=== PATIENT | male | born 1955 | race Caucasian/White ===

== ENCOUNTER → 2017-01-01 | Outpatient (CLI) | payer MEDICARE ==
[2017-01-01 07:41] LABS: ALT 58 U/L (21-72); AST 32 U/L (17-59); Alkaline Phosphatase 58 U/L (38-126); Anion Gap 12 mmol/L; Blood Urea Nitrogen 17 mg/dL (9-20); Carbon Dioxide 24 mmol/L (22-30); Chloride 106 mmol/L (98-107); Cholesterol 150 mg/dL (<200); Glucose 123 mg/dL (74-99); HDL Cholesterol 39 mg/dL (40-60); Non-African American GFR(MDRD) >60 (>60 ml/min/1.73 sqM); Potassium 4.3 mmol/L (3.5-5.1); Sodium 142 mmol/L (137-145); Total Bilirubin 0.9 mg/dL (0.2-1.3); Triglycerides 268 mg/dL (<150)
== END | disposition home or self-care (01) ==
LOC: LABWHC1 07:02
PROVIDERS: ATTEND Internal Medicine Interventional Cardiology
DX: E78.2 Mixed hyperlipidemia (principal)
CPT/HCPCS: 36415; 80053; 80061

== ENCOUNTER → 2017-05-18 | Outpatient (CLI) | payer MEDICARE ==
--- NOTE | 2017-05-18 15:35 | US ---
EXAMINATION TYPE: US pelvic complete DATE OF EXAM: 05/18/2017 COMPARISON: NONE CLINICAL HISTORY: R10.2 PELVIC AND PERINEAL PAIN. Intermittent pelvic pain Bladder: appears wnl, bladder jets not seen at this time, post void residual 95.8ml Right pelvis area of pain: appears wnl Left pelvis area of pain: appears wnl IMPRESSION: 1. Normal male pelvic ultrasound.
== END | disposition home or self-care (01) ==
LOC: RADUSWWP 14:22
PROVIDERS: ATTEND Family Medicine
DX: R10.2 Pelvic and perineal pain (principal)
CPT/HCPCS: 76857

== ENCOUNTER → 2017-06-30 | Outpatient (CLI) | payer MEDICARE ==
[2017-06-30 08:29] LABS: ALT 47 U/L (21-72); AST 28 U/L (17-59); Alkaline Phosphatase 56 U/L (38-126); Anion Gap 12 mmol/L; Blood Urea Nitrogen 15 mg/dL (9-20); Calcium 9.4 mg/dL (8.4-10.2); Carbon Dioxide 20 mmol/L (22-30); Chloride 109 mmol/L (98-107); Cholesterol 160 mg/dL (<200); Glucose 135 mg/dL (74-99); HDL Cholesterol 41 mg/dL (40-60); Non-African American GFR(MDRD) >60 (>60 ml/min/1.73 sqM); Potassium 4.4 mmol/L (3.5-5.1); Sodium 141 mmol/L (137-145); Total Bilirubin 0.7 mg/dL (0.2-1.3); Total Protein 7.1 g/dL (6.3-8.2)
== END | disposition home or self-care (01) ==
LOC: LABWHC1 07:49
PROVIDERS: ATTEND Internal Medicine Interventional Cardiology
DX: E78.2 Mixed hyperlipidemia (principal)
CPT/HCPCS: 36415; 80053; 80061

== ENCOUNTER → 2017-08-19 | Outpatient (CLI) | payer MEDICARE ==
--- NOTE | 2017-08-19 17:54 | US ---
EXAMINATION TYPE: US thyroid st tissue head/neck DATE OF EXAM: 08/19/2017 COMPARISON: 07/23/2016 CLINICAL HISTORY: E04.1 Thyroid nodule. GLAND SIZE: Right Lobe: 4.8 x 1.7 x 1.7 cm Overall Parenchyma: homogenous Left Lobe: 4.4 x 1.8 x 1.8 cm Overall Parenchyma: homogeneous Isthmus Thickness: 0.3 cm NODULES RIGHT: # of nodules measured on right: 0 LEFT: # of nodules measured on left: 1 1. 1.6 X 1.1 x 1.0 cm hypoechoic solid nodule at the mid pole with poorly defined margins; . This nodule is wider than tall and shows intranodular vascularity. Prior size: 1.5 x 1.2 x 1.1 cm ISTHMUS: # of nodules measured in the isthmus: 0 Bilateral neck scanned, no evidence of lymphadenopathy. IMPRESSION: There is a complex nodule in the left thyroid lobe that is unchanged compared to old exam. I have xena rly low suspicion of malignancy.
== END | disposition home or self-care (01) ==
LOC: RADUSWWP 16:54
PROVIDERS: ATTEND Internal Medicine Endocrinology, Diabetes & Metabolism
DX: E04.1 Nontoxic single thyroid nodule (principal)
CPT/HCPCS: 76536; 84439; 84443

== ENCOUNTER → 2017-10-14 | Outpatient (CLI) | payer MEDICARE ==
--- NOTE | 2017-10-14 11:06 | CT ---
EXAMINATION TYPE: CT abdomen pelvis wo con DATE OF EXAM: 10/14/2017 COMPARISON: NONE INDICATION: ABDOMINAL PAIN DLP: 900.00 mGycm, Automated exposure control for dose reduction was used. CONTRAST: 0 mL of Omnipaque 350. Study performed without Oral Contrast TECHNIQUE: Axial images were obtained from above the diaphragm to the pubic rami in the axial plane a t 5 mm thick sections. Reconstructed images are reviewed on the computer in the coronal plane. FINDINGS: Limited CT sections are obtained the lung bases. The lung bases are clear. CT ABDOMEN: Liver: Normal Spleen: Normal Pancreas: Normal Adrenal glands: The adrenal glands are normal. Gallbladder: Normal Kidneys: No masses are evident. No hydronephrosis is present. No cysts are present. Aorta: Vascular calcification is within the aorta. Inferior vena cava: Normal. CT PELVIS: Loops of bowel within the abdomen and pelvis are normal. Studies without oral contrast limiting t he evaluation. Some fecal debris scattered within the colon Appendix: Normal as visualized. Urinary bladder: Normal. Genitourinary structures: Prostate appears unremarkable. Osseous structures: No suspicious lytic or sclerotic lesions. Some lumbar facet degenerative changes present L4-5 L5-S1. IMPRESSIONS: 1. No acute process.
== END ==
LOC: RADCTMAIN 07:55
PROVIDERS: ATTEND Family Medicine
DX: R10.9 Unspecified abdominal pain (principal)
CPT/HCPCS: 74176

== ENCOUNTER → 2017-10-23 | Outpatient (CLI) | payer MEDICARE ==
[2017-10-23 08:29] LABS: Blood Urea Nitrogen 15 mg/dL (9-20)
--- NOTE | 2017-10-23 10:42 | CT ---
EXAMINATION TYPE: CT abdomen pelvis w con DATE OF EXAM: 10/23/2017 COMPARISON: NONE HISTORY: Gross hematuria CT DLP: 1853 mGycm Automated exposure control for dose reduction was used. TECHNIQUE: Helical acquisition of images was performed from the lung bases through the pelvis. CONTRAST: Performed with Oral Contrast and with IV Contrast, patient injected with 100 ml mL of Omnipaque 300. FINDINGS: LUNG BASES: A 5 mm left basilar pulmonary nodule seen on series 4 image 7. Minimal bibasilar subsegme ntal atelectasis is also noted. LIVER/GB: Hepatic parenchyma is diffusely hypoattenuated in comparison to that of the spleen, most co mmonly seen in hepatic steatosis. This finding limits evaluation for hepatic masses. Focal fatty spar ing is seen around the gallbladder fossa. No gross evidence of hepatic mass is seen. No intrahepatic biliary ductal dilatation. No cholelithiasis PANCREAS: No significant abnormality is seen. SPLEEN: No significant abnormality is seen. ADRENALS: No significant abnormality is seen. KIDNEYS: 5 mm left lower pole renal cyst is noted. No other renal masses are seen. Kidneys enhance an d excrete otherwise symmetrically. Nonspecific perinephric fat stranding is present. No hydronephrosi s. No perinephric fluid collections.. FREE AIR: No free air is visualized. ADENOPATHY: No greater than 1 cm short axis lymph nodes are seen within the abdomen or pelvis. Promi nent but nonenlarged left superficial inguinal lymph node measures 1.0 cm in short axis and maintains a fatty tonia. REPRODUCTIVE ORGANS: Prostate gland is mildly heterogenous but within normal limits of size. Small fa t filled inguinal hernias are noted. URINARY BLADDER: Urinary bladder is incompletely distended and suboptimally evaluated as no contrast is seen within the urinary bladder. OSSEOUS STRUCTURES: Mild multilevel degenerative changes of the lumbosacral spine are noted. BOWEL: Few sigmoid diverticula are present and descending colonic diverticula without pericolonic fa t stranding. OTHER: Moderate calcific atheromatous images are seen of the abdominal aorta and its branches. Abdomi nal aorta is normal in course and caliber. IMPRESSION: 1. NO CT FINDING TO CORRESPOND TO THE PATIENT'S GROSS HEMATURIA. URINARY BLADDER IS SUBOPTIMALLY EVAL UATED CONTRAST IS NOT SEEN WITHIN THE URINARY BLADDER. PELVIC ULTRASOUND OR DIRECT VISUALIZATION C OULD BE PERFORMED IF THERE IS FURTHER CLINICAL CONCERN. 2. COLONIC DIVERTICULOSIS WITHOUT EVIDENCE OF DIVERTICULITIS. 3. HEPATIC STEATOSIS, APPEARING MILD IN DEGREE. 4. SUBCENTIMETER LEFT LOWER POLE RENAL CYST.
== END | disposition home or self-care (01) ==
LOC: RADCTMAIN 07:47
PROVIDERS: ATTEND Urology
DX: K57.30 Diverticulosis of large intestine without perforation or abscess without bleeding (principal); K76.0 Fatty (change of) liver, not elsewhere classified; N28.1 Cyst of kidney, acquired
CPT/HCPCS: 82565; 84520; 74177; 36415; Q9967

== ENCOUNTER → 2017-12-01 | Outpatient (CLI) | payer MEDICARE ==
[2017-12-01 09:21] LABS: ALT 51 U/L (21-72); AST 25 U/L (17-59); Cholesterol 128 mg/dL (<200); HDL Cholesterol 41 mg/dL (40-60); LDL Cholesterol,Calculated 63 mg/dL (0-99); Triglycerides 118 mg/dL (<150)
== END | disposition home or self-care (01) ==
LOC: LABWHC1 08:46
PROVIDERS: ATTEND Internal Medicine Interventional Cardiology
DX: E78.2 Mixed hyperlipidemia (principal)
CPT/HCPCS: 36415; 80061; 84450; 84460

== ENCOUNTER → 2018-06-17 | Outpatient (CLI) | payer MEDICARE ==
[2018-06-17 09:55] LABS: ALT 61 U/L (21-72); AST 30 U/L (17-59); Albumin 4.1 g/dL (3.5-5.0); Alkaline Phosphatase 44 U/L (38-126); Anion Gap 8 mmol/L; Blood Urea Nitrogen 17 mg/dL (9-20); Calcium 9.4 mg/dL (8.4-10.2); Carbon Dioxide 25 mmol/L (22-30); Chloride 108 mmol/L (98-107); Cholesterol 151 mg/dL (<200); Glucose 151 mg/dL (74-99); HDL Cholesterol 41 mg/dL (40-60); LDL Cholesterol,Calculated 87 mg/dL (0-99); Potassium 4.6 mmol/L (3.5-5.1); Sodium 141 mmol/L (137-145); Total Bilirubin 0.6 mg/dL (0.2-1.3); Total Protein 6.5 g/dL (6.3-8.2); Triglycerides 114 mg/dL (<150)
== END | disposition home or self-care (01) ==
LOC: LABWHC1 08:40
PROVIDERS: ATTEND Internal Medicine Interventional Cardiology
DX: E78.2 Mixed hyperlipidemia (principal)
CPT/HCPCS: 36415; 80053; 80061

== ENCOUNTER → 2018-12-15 | Outpatient (CLI) | payer MEDICARE ==
[2018-12-15 16:48] LABS: Albumin 4.7 g/dL (3.80-4.90); Albumin/Globulin Ratio 2.76 (1.60-3.17); Anion Gap 6.1 mmol/L (4.00-12.00); Calcium 9.8 mg/dL (8.7-10.3); Carbon Dioxide 25.9 mmol/L (21.6-31.8); Globulin 1.7 g/dL (1.6-3.3); LDL Cholesterol,Calculated 66.6 mg/dL (0.0-131.0); Potassium 4.5 mmol/L (3.5-5.5); Total Bilirubin 0.7 mg/dL (0.3-1.2); Total Protein 6.4 g/dL (6.2-8.2); VLDL Calculation 23.4 mg/dL (5.00-40.00)
== END | disposition home or self-care (01) ==
LOC: LABWHC1 06:56
PROVIDERS: ATTEND Internal Medicine Interventional Cardiology
DX: E78.2 Mixed hyperlipidemia (principal)
CPT/HCPCS: 36415; 80053; 80061

== ENCOUNTER → 2019-06-06 | Outpatient (CLI) | payer MEDICARE ==
[2019-06-06 11:13] LABS: Chol/HDL Ratio 2.77; LDL Cholesterol,Calculated 61.6 mg/dL (0.0-131.0); VLDL Calculation 16.4 mg/dL (5.00-40.00)
== END | disposition home or self-care (01) ==
LOC: LABWHC1 07:14
PROVIDERS: ATTEND Internal Medicine Interventional Cardiology
DX: E78.2 Mixed hyperlipidemia (principal)
CPT/HCPCS: 36415; 80061; 84450; 84460

== ENCOUNTER → 2019-09-30 | Outpatient (CLI) | payer MEDICARE ==
[2019-09-30 09:47] LABS: Appearance,Urine Clear (Clear); Bilirubin,Urine Negative (Negative); Blood,Urine Negative (Negative); Color,Urine Yellow; Glucose,Urine (UA) Negative (Negative); Ketones,Urine Negative (Negative); Leukocyte Esterase,Urine Negative (Negative); Nitrite,Urine Negative (Negative); Protein,Urine Trace (Negative); Specific Gravity,Urine 1.026 (1.001-1.035); Urobilinogen,Urine <2.0 mg/dL (<2.0)
[2019-09-30 09:52] LABS: HCT 46.9 % (39.0-53.0); HGB 16.2 gm/dL (13.0-17.5); MCH 29.1 pg (25.0-35.0); MCHC 34.6 g/dL (31.0-37.0); MCV 84.2 fL (80.0-100.0); Mean Platelet Volume 7.3; Platelet Count 187 k/uL (150-450); RBC 5.57 m/uL (4.30-5.90); RDW 12.7 % (11.5-15.5); WBC 10.5 k/uL (3.8-10.6)
[2019-09-30 11:15] LABS: Eosinophils # (M) 0.32 k/uL (0-0.7); Lymphocytes # (M) 5.99 k/uL (1.0-4.8); Monocytes # (M) 0.74 k/uL (0-1.0); Neutrophils # (M) 3.47 k/uL (1.3-7.7); Neutrophils % (M) 33 %; Nucleated Red Blood Cells 0 /100 WBC (0-0); Total Cells Counted 100
[2019-09-30 11:22] LABS: Reactive Lymphocytes Present
[2019-09-30 17:14] LABS: African American GFR (CKD) 110.2 (60.0-200.0); Albumin 4.8 g/dL (3.80-4.90); Anion Gap 9.2 mmol/L (4.00-12.00); BUN/Creat Ratio 21.25 Ratio (12.00-20.00); Calcium 9.4 mg/dL (8.7-10.3); Carbon Dioxide 21.8 mmol/L (21.6-31.8); Chol/HDL Ratio 4.07; Globulin 1.6 g/dL (1.6-3.3); LDL Cholesterol,Calculated 115.6 mg/dL (0.0-131.0); Non-African American GFR(CKD) 95.1 (60.0-200.0); Potassium 4.2 mmol/L (3.5-5.5); Total Bilirubin 0.8 mg/dL (0.2-1.2); Total Protein 6.4 g/dL (6.2-8.2); VLDL Calculation 22.4 mg/dL (5.00-40.00)
[2019-09-30 17:21] LABS: T4, Free (Free Thyroxine) 1.3 ng/dL (0.80-1.80)
== END | disposition home or self-care (01) ==
LOC: LABWHC1 07:05
PROVIDERS: ATTEND Family Medicine
DX: E55.9 Vitamin D deficiency, unspecified (principal); Z12.5 Encounter for screening for malignant neoplasm of prostate; I25.10 Atherosclerotic heart disease of native coronary artery without angina pectoris; E78.5 Hyperlipidemia, unspecified; I10 Essential (primary) hypertension
CPT/HCPCS: 84439; 80061; 80053; 84443; 85025; 81003; 36415; G0103

== ENCOUNTER → 2019-10-07 | Outpatient (CLI) | payer MEDICARE ==
--- NOTE | 2019-10-07 08:44 | US ---
EXAMINATION TYPE: US thyroid st tissue head/neck DATE OF EXAM: 10/07/2019 COMPARISON: Thyroid ultrasound August 19, 2017 and older studies. CLINICAL HISTORY: E04.1 nontoxic single thyroid nodule. GLAND SIZE: Right Lobe: 4.5 x 1.3 x 1.6 cm Overall Parenchyma: homogenous Left Lobe: 4.9 x 1.7 x 2.0 cm Overall Parenchyma: homogeneous Isthmus Thickness: 0.3 cm NODULES RIGHT: # of nodules measured on right: 0 LEFT: # of nodules measured on left: 0 1. 1.4 X 1.0 x 1.0 cm hypoechoic mixed but predominantly solid nodule at the mid pole with poorly d efined margins. This nodule is wider than tall and shows no intranodular vascularity. Prior size: 1.5 x 1.1 x 1.0 cm ISTHMUS: # of nodules measured in the isthmus: 0 Bilateral neck scanned, no evidence of lymphadenopathy. Stable redemonstration of normal-sized homogeneous thyroid with stable 1.5 cm predominantly solid ill -defined nodule posteriorly midpole level. IMPRESSION: Overall stable findings, no new nodules are seen. Stable left-sided nodule noted.
== END | disposition home or self-care (01) ==
LOC: RADUSWWP 06:51
PROVIDERS: ATTEND Internal Medicine Endocrinology, Diabetes & Metabolism
DX: E04.1 Nontoxic single thyroid nodule (principal)
CPT/HCPCS: 76536

== ENCOUNTER → 2019-11-29 | Outpatient (CLI) | payer MEDICARE ==
--- NOTE | 2019-11-29 12:00 | CT ---
EXAMINATION TYPE: CT brain wo con DATE OF EXAM: 11/29/2019 COMPARISON: None HISTORY: Memory loss, Dizziness and right sided posterior headache CT DLP: 1199 mGycm Automated exposure control for dose reduction was used. TECHNIQUE: CT scan of the head is performed without contrast. FINDINGS: There is no acute intracranial hemorrhage or midline shift identified. There is diffuse v entricular and sulcal prominence consistent with diffuse age-related cerebral atrophy. Incidentally noted basal ganglia calcifications, benign. Old punctate lacunar injury of the right lentiform nucleu s is seen on series 6 image 20. There is low-attenuation in the periventricular white matter most com monly on the basis of chronic small vessel ischemic change. Scant mucosal thickening of the ethmoid s inuses. The globes are intact and the remaining visualized sinuses are clear. Cerumen is incidental ly noted within the bilateral external auditory canals. Atherosclerosis is seen of the intracranial v asculature. IMPRESSION: 1. No acute intracranial hemorrhage or midline shift. 2. Age related cerebral atrophy and mild burden nonspecific white matter change, most commonly on the basis of chronic microangiopathy. 3. Bilateral external auditory canals cerumen impaction. 3. Scant mucosal thickening in the ethmoid sinuses.
== END | disposition home or self-care (01) ==
LOC: RADCTMAIN 11:28
PROVIDERS: ATTEND Psychiatry & Neurology Neurology
DX: G31.1 Senile degeneration of brain, not elsewhere classified (principal); I67.9 Cerebrovascular disease, unspecified
CPT/HCPCS: 70450

== ENCOUNTER → 2019-12-07 | Outpatient (CLI) | payer MEDICARE ==
[2019-12-07 14:25] VITALS: BP 120/64; PULSE 60; RESP 18
--- NOTE | 2019-12-07 14:56 | P.PAINCN ---
History of Present Illness - Reason for Consult Consult date: 12/07/19 - History of Present Illness This is 64 years old male, was referred to [facility] pain clinic for right-sided occipital nerve block, patient diagnosed with right occipital neuralgia, patient reported that he had right-sided neck pain with radiation to the top of his head, started a 6-7 months ago, he denies any initiating event, he denies any motor or sensory deficit, patient will report that he had massage therapy on his neck for a few sessions which improved his pain, and currently he has no neck pain and he had no headach. Past Medical History Past Medical History: Coronary Artery Disease (CAD), Hyperlipidemia, Hypertension Additional Past Medical History / Comment(s): HX CLOSED HEAD INJURY-2008 History of Any Multi-Drug Resistant Organisms: None Reported Past Surgical History: Back Surgery, Coronary Bypass/CABG, Heart Catheterization, Hernia Repair, Orthopedic Surgery, Tonsillectomy Additional Past Surgical History / Comment(s): 5- HERNIA SX. FATTY TUMOR REMOVED FROM CHEST. LT ROTATOR CUFF REPAIR. LT LEG TENDON REATTACHMENT. CABG- 10/21/2013. BILAT CATARACTS REMOVED. COLONOSCOPY. EDG Past Anesthesia/Blood Transfusion Reactions: No Reported Reaction Past Psychological History: No Psychological Hx Reported Smoking Status: Former smoker Past Alcohol Use History: None Reported Additional Past Alcohol Use History / Comment(s): QUIT SMOKING 2014 Past Drug Use History: Marijuana Additional Drug Use History / Comment(s): USES ON OCCASION - Past Family History Father Family Medical History: Cancer Medications and Allergies Home Medications Medication Instructions Recorded Confirmed Type ALPRAZolam [Xanax] 1 mg PO Q8HR 06/19/15 12/05/19 History Lisinopril [Zestril] 2.5 mg PO DAILY 06/19/15 12/05/19 History Meclizine [Antivert] 12.5 mg PO BID 06/19/15 12/05/19 History Metoprolol Tartrate [Lopressor] 25 mg PO BID 06/19/15 12/05/19 History buPROPion HCL [Wellbutrin SR] 150 mg PO DAILY 06/19/15 12/05/19 History traZODone HCL [Oleptro ER] 150 mg PO HS 06/19/15 12/05/19 History Aspirin [Adult Low Dose Aspirin EC] 162 mg PO DAILY 12/05/19 12/05/19 History Dicyclomine [Bentyl] 10 mg PO TID 12/05/19 12/05/19 History metFORMIN HCL [Glucophage] 1,000 mg PO BID 12/05/19 12/05/19 History Allergies Allergy/AdvReac Type Severity Reaction Status Date / Time No Known Allergies Allergy Verified 12/05/19 11:05 Physical Exam Vitals: Vital Signs Pulse Resp BP Pulse Ox 12/07/19 14:17 60 18 120/64 95 Physical Examinations : [place] : Cooperative , not in acute distress . HEENT : nech : supple , no Lymphadenopathy , normal thyroid size . : eyes no ptosis , no icterus, no photophobia . neurologic : Cranial nerve II to XII intact , no focal neurological deffecit . psychatric : alert , oriented X 3 , appropriate affect , intact judgment and insight . Lymphatic : no Lymphadenopathy . musculoskeltal : Cervical Spine motor stregnth in the deltoid and biceps, normal right side , normal Left side motor stregnth biceps and the wrist extensors normal right side ,normal left side . motor stregnth in the triceps muscle . normal Right side , normal Left side deep tendon reflexes= normal at the biceps , normal at Brachioradialis , normal at triceps. cervical facet loading test: Negative Bilaterally Spurling test= negative bilaterally. Neck distraction test= negative bilaterally. Rashawn sign= negative bilaterally. Mild tenderness over the right occ ipital nerve location Lumber spine moter stegnth lower extremities ,thigh and legs 5/5 Right side , 5/5 Left side Results Comments: Computed tomography scan of the brain done 11/29/2019 reported no acute intracranial bleeding Assessment and Plan Plan: Assessment and plan= right occipital neuralgia. Patient currently asymptomatic, and he reported that his headache and neck pain improved after he had massage therapy Patient will be good candidate to have right side occipital nerve block if the symptoms recurred Time with Patient: Less than 30 PQRS Measure Charge Sheet Measure #130: Documentation of Current Meds in Medical Chart: Patient's medications documented in chart Measure #226: Tobacco Use: Screen & Cessation Intervention: Pt not a tobacco user Measure #111: Pneumonia Vaccination: Pneumococcal vaccine NOT administered or previously given Measure #47: Advance Care Plan: Advance care planning discussed & documented, pt chose/unable to give Measure #412: Opioid Treatment Agreement: No documentation of signed opioid treatment agreement Measure #408: Opioid Therapy Follow-up Evaluation: Patient had NO f/u eval minimum every 3 months during opioid therapy Measure #317: Preventitive Care & Scrn High Bld Press & F/U: Normal blood pressure, f/u not required Measure #128: Body Mass Index (BMI) Screening & Follow-up: BMI documented ABOVE normal parameters - f/u documented Measure #131: Pain Assessment & Follow-up: Pain positive & plan documented, Follow-up scheduled Measure #431: Unhealthy Alcohol Use Preventative Care & Scrn: Patient not identified as an unhealthy alcohol user PQRS Narrative: Smoking Status Former smoker Blood Pressure 120/64 Pain Intensity [Posterior Head 0 ] Pain Intensity [Right 0 Posterior Back] Scale Used Numeric (1 - 10) Hx Alcohol Use (MH) No Home Medications: Ambulatory Orders ALPRAZolam [Xanax] 1 mg PO Q8HR 06/19/15 Lisinopril [Zestril] 2.5 mg PO DAILY 06/19/15 Meclizine [Antivert] 12.5 mg PO BID 06/19/15 Metoprolol Tartrate [Lopressor] 25 mg PO BID 06/19/15 buPROPion HCL [Wellbutrin SR] 150 mg PO DAILY 06/19/15 traZODone HCL [Oleptro ER] 150 mg PO HS 06/19/15 Aspirin [Adult Low Dose Aspirin EC] 162 mg PO DAILY 12/05/19 Dicyclomine [Bentyl] 10 mg PO TID 12/05/19 metFORMIN HCL [Glucophage] 1,000 mg PO BID 12/05/19
== END | disposition home or self-care (01) ==
LOC: PNWHC3 13:34
PROVIDERS: ATTEND Specialist
DX: M54.81 Occipital neuralgia (principal); I25.10 Atherosclerotic heart disease of native coronary artery without angina pectoris; I10 Essential (primary) hypertension; E78.5 Hyperlipidemia, unspecified; Z87.891 Personal history of nicotine dependence; Z79.82 Long term (current) use of aspirin; Z79.84 Long term (current) use of oral hypoglycemic drugs; Z79.899 Other long term (current) drug therapy
CPT/HCPCS: 99211

== ENCOUNTER → 2020-03-23 | Outpatient (CLI) | payer MEDICARE ==
[2020-03-23 15:30] LABS: African American GFR (CKD) 110.2 (60.0-200.0); Albumin 4.5 g/dL (3.80-4.90); Albumin/Globulin Ratio 2.5 (1.60-3.17); Anion Gap 5.8 mmol/L (4.00-12.00); Calcium 9.2 mg/dL (8.7-10.3); Carbon Dioxide 25.2 mmol/L (21.6-31.8); Chol/HDL Ratio 3.34; Globulin 1.8 g/dL (1.6-3.3); LDL Cholesterol,Calculated 61.8 mg/dL (0.0-131.0); Non-African American GFR(CKD) 95.1 (60.0-200.0); Potassium 4.8 mmol/L (3.5-5.5); Total Bilirubin 0.5 mg/dL (0.3-1.2); Total Protein 6.3 g/dL (6.2-8.2); VLDL Calculation 27.2 mg/dL (5.00-40.00)
== END | disposition home or self-care (01) ==
LOC: LABWHC1 07:09
PROVIDERS: ATTEND Nurse Practitioner Adult Health
DX: I25.810 Atherosclerosis of coronary artery bypass graft(s) without angina pectoris (principal); E78.2 Mixed hyperlipidemia
CPT/HCPCS: 36415; 80053; 80061

== ENCOUNTER → 2020-10-25 | Outpatient (CLI) | payer MEDICARE ==
[2020-10-25 17:22] LABS: African American GFR (CKD) 104.2 (60.0-200.0); Albumin 4.8 g/dL (3.80-4.90); Albumin/Globulin Ratio 3.2 (1.60-3.17); Anion Gap 10.9 mmol/L (4.00-12.00); Calcium 9.3 mg/dL (8.7-10.3); Carbon Dioxide 27.1 mmol/L (21.6-31.8); Chol/HDL Ratio 2.89; Globulin 1.5 g/dL (1.6-3.3); LDL Cholesterol,Calculated 43.2 mg/dL (0.0-131.0); Non-African American GFR(CKD) 89.9 (60.0-200.0); Potassium 4.8 mmol/L (3.5-5.5); Total Bilirubin 0.6 mg/dL (0.3-1.2); Total Protein 6.3 g/dL (6.2-8.2); VLDL Calculation 28.8 mg/dL (5.00-40.00)
== END | disposition home or self-care (01) ==
LOC: LABWHC1 07:45
PROVIDERS: ATTEND Internal Medicine Interventional Cardiology
DX: E78.2 Mixed hyperlipidemia (principal)
CPT/HCPCS: 36415; 80053; 80061

== ENCOUNTER → 2020-11-19 | Outpatient (CLI) | payer MEDICARE ==
[2020-11-19 15:16] LABS: T4, Free (Free Thyroxine) 0.88 ng/dL (0.78-2.19)
--- NOTE | 2020-11-20 09:13 | US ---
EXAMINATION TYPE: US thyroid st tissue head/neck DATE OF EXAM: 11/19/2020 COMPARISON: NONE CLINICAL HISTORY: E04.1 Nontoxic single thyroid nodule. No thyroid meds. GLAND SIZE: Right Lobe: 4.7 x 1.7 x 1.5 cm Overall Parenchyma: heterogenous Left Lobe: 4.5 x 1.9 x 1.8 cm Overall Parenchyma: heterogeneous Isthmus Thickness: 0.3 cm NODULES RIGHT: # of nodules measured on right: 0 LEFT: # of nodules measured on left: 1 1. 1.1 X 1.0 x 0.8 cm solid or almost completely solid, hyperechoic nodule, which is wider than quinn l, with ill-defined margins, without echogenic foci. Prior size: 1.4 x 1.0 x 1.0 cm ISTHMUS: # of nodules measured in the isthmus: 0 Bilateral neck scanned, no evidence of lymphadenopathy. Persistent heterogeneous normal-sized thyroid with stable poorly marginated 1.1 cm posterior solid le ft thyroid nodule. IMPRESSION: As above. No new or enlarging greater than 1 cm solid nodules.
== END | disposition home or self-care (01) ==
LOC: RADUSWWP 13:30
PROVIDERS: ATTEND Internal Medicine Endocrinology, Diabetes & Metabolism
DX: E04.2 Nontoxic multinodular goiter (principal); E04.1 Nontoxic single thyroid nodule
CPT/HCPCS: 36415; 76536; 84439; 84443

== ENCOUNTER → 2020-12-03 | Outpatient (CLI) | payer MEDICARE ==
[2020-12-03 14:23] LABS: African American GFR (CKD) >90 (>60 ml/min/1.73 sqM); Blood Urea Nitrogen 14 mg/dL (9-20); Non-African American GFR(CKD) >90 (>60 ml/min/1.73 sqM)
--- NOTE | 2020-12-03 15:38 | CT ---
EXAMINATION TYPE: CT soft tissue neck w con DATE OF EXAM: 12/03/2020 HISTORY: Chronic pharyngitis per order. Ear Pain for 3 days after sore throat. COMPARISON: Thyroid ultrasound November 19, 2020. CT DLP: 855 mGycm. Automated Exposure Control for Dose Reduction was Utilized. TECHNIQUE: CT scan of the neck is performed with IV Contrast, patient injected with 100 mL of Isovue 300, axial images are obtained, coronal and sagittal reformatted images are reviewed. FINDINGS: Airway: Subcentimeter left thyroid nodule axial image 65 correlates with ultrasound. Overlying sterna l wires and mediastinal clips from CABG procedure partially imaged. Patent nasopharyngeal and orophar yngeal airway. Unremarkable hypopharyngeal airway. Parotid/submandibular glands: No gross abnormality seen. Carotid/Vascular Structures: Moderate calcified plaque left carotid bulb extends into proximal internet merchant al carotid artery without significant stenosis. More severe mixed plaque right carotid bulb extends into proximal internal and external carotid arter ies. Significant stenosis greater than 50% is thought present axial image 43 for reference. Follow-u p advised. Codominant vertebral arteries. Osseous Structures: Motion artifacts C5-C6 level. Moderate disc space narrowing suspected at this lev el. Other: Slightly enlarged left-sided low dense lymph node at level of thyroid gland measuring 1.3 x 1. 0 cm axial image 60. Some scattered prominent but subcentimeter bilateral neck lymph nodes. Reference d there is 10 x 8 mm right submandibular lymph node at level of hyoid bone axial image 46. Parapharyn geal fat spaces are maintained. Nasal septum deviated to right of midline anteriorly. No suspicious opacification mastoid air cells. IMPRESSION: 1. Severe mixed plaque right carotid bulb causes significant stenosis proximal internal carotid arter y thought greater than 50%. Follow-up with carotid ultrasound is advised. 2. Single enlarged left sided lymph node supraclavicular region at level of thyroid gland is nonspeci fic. No obvious mass or additional adenopathy. Patent airway noted.
== END | disposition home or self-care (01) ==
LOC: RADCTMAIN 13:50
PROVIDERS: ATTEND Otolaryngology
DX: I65.21 Occlusion and stenosis of right carotid artery (principal); R59.9 Enlarged lymph nodes, unspecified
CPT/HCPCS: 82565; 84520; 70491; 36415; Q9967

== ENCOUNTER → 2021-04-08 | Outpatient (CLI) | payer MEDICARE ==
[2021-04-08 09:26] LABS: ALT 28 U/L (4-49); African American GFR (CKD) >90 (>60 ml/min/1.73 sqM); Albumin 4.3 g/dL (3.5-5.0); Anion Gap 7 mmol/L; Blood Urea Nitrogen 18 mg/dL (9-20); Calcium 9.3 mg/dL (8.4-10.2); Carbon Dioxide 26 mmol/L (22-30); Chloride 106 mmol/L (98-107); Glucose 107 mg/dL (74-99); Non-African American GFR(CKD) >90 (>60 ml/min/1.73 sqM); Sodium 139 mmol/L (137-145); Total Bilirubin 0.7 mg/dL (0.2-1.3); Total Protein 6.6 g/dL (6.3-8.2)
[2021-04-08 09:37] LABS: AST 36 U/L (17-59); Alkaline Phosphatase 37 U/L (38-126); Potassium 5.4 mmol/L (3.5-5.1)
--- NOTE | 2021-04-08 10:34 | CT ---
EXAMINATION TYPE: CT angio chest DATE OF EXAM: 04/08/2021 COMPARISON: None HISTORY: Follow up aortic valve problem per patient. CT DLP: 440 mGycm CONTRAST: CTA thoracic aorta with 3-D reconstruction is performed and with IV Contrast, patient injected with 1 00 mL of Isovue 370. Contrast CTA of the thoracic aorta was performed from the lung apex through the upper abdomen. 3D re construction imaging obtained at a separate workstation. CT Chest: THORACIC AORTA: There is ascending thoracic aortic aneurysm measuring 4 cm in AP dimension. The remai nder of the thoracic aorta is of normal caliber. Mild atheromatous changes seen. There is no evidenc e for dissection or periaortic collection. LUNGS: The lungs are clear and free of infiltrate or atelectasis. No pulmonary nodule or mass is det ected. No pleural effusion or CT evidence of interstitial lung disease. MEDIASTINUM: No evidence for mediastinal hematoma. The heart is enlarged. No evidence for mediast inal mass or adenopathy. HILAR STRUCTURES: No evidence for mass. No hilar adenopathy is appreciated. OTHER: No significant abnormality. IMPRESSION- Mild ascending thoracic aortic aneurysm. Otherwise unremarkable study.
[2021-04-08 14:50] LABS: Chol/HDL Ratio 3.03; Cholesterol 103 mg/dL (0-200); LDL Cholesterol,Calculated 50.2 mg/dL (0.0-131.0)
== END | disposition home or self-care (01) ==
LOC: RADCTMAIN 08:37
PROVIDERS: ATTEND Internal Medicine Interventional Cardiology
DX: I71.2 Thoracic aortic aneurysm, without rupture (principal)
CPT/HCPCS: 80061; 80053; 71275; 36415; Q9967

== ENCOUNTER → 2021-11-01 | Outpatient (CLI) | payer MEDICARE ==
[2021-11-01 11:09] LABS: ALT 25 U/L (10-49); AST 18 U/L (14-35); Chol/HDL Ratio 2.77 Ratio; LDL Cholesterol,Calculated 49.9 mg/dL (0.0-131.0); VLDL Calculation 17.78 mg/dL (5.00-40.00)
== END | disposition home or self-care (01) ==
LOC: LABWHC1 07:13
PROVIDERS: ATTEND Internal Medicine Interventional Cardiology
DX: E78.2 Mixed hyperlipidemia (principal)
CPT/HCPCS: 36415; 80061; 84450; 84460

== ENCOUNTER → 2022-01-20 | Outpatient (CLI) | payer MEDICARE ==
[2022-01-21 00:08] LABS: African American GFR (CKD) 110.6 (60.0-200.0); Albumin 4.7 g/dL (3.8-4.9); Albumin/Globulin Ratio 2.54 (1.60-3.17); Anion Gap 12.4 mmol/L (10.00-18.00); BUN/Creat Ratio 23.37 Ratio (12.00-20.00); Blood Urea Nitrogen 17.9 mg/dL (9.0-27.0); Calcium 9.1 mg/dL (8.7-10.3); Carbon Dioxide 20.1 mmol/L (20.0-27.5); Globulin 1.9 g/dL (1.6-3.3); Non-African American GFR(CKD) 95.4 (60.0-200.0); Potassium 4.1 mmol/L (3.5-5.5); Prostate Specific Antigen 0.4 ng/mL (0.00-4.50); T4, Free (Free Thyroxine) 1.22 ng/dL (0.800-1.800); Total Bilirubin 0.6 mg/dL (0.30-1.20); Total Protein 6.6 g/dL (6.2-8.2)
[2022-01-21 00:45] LABS: HCT 45.3 % (39.6-50.0); HGB 14.8 g/dL (13.0-17.0); MCHC 32.7 g/dL (32.0-37.0); MCV 85.6 fL (80.0-97.0); Mean Platelet Volume 9.9 fL (9.5-12.2); NRBC Per 100 WBC 0 /100 WBCS (0.0-0.0); Platelet Count 155 X 10*3/uL (140-440); RBC 5.29 X 10*6/uL (4.40-5.60); RDW 13.2 % (11.5-14.5); WBC 12.67 X 10*3/uL (4.50-10.00)
[2022-01-21 01:06] LABS: Appearance,Urine Clear (Clear); Bilirubin,Urine Negative (Negative); Blood,Urine Negative (Negative); Color,Urine Dark Yellow (Yellow); Ketones,Urine Trace mg/dL (Negative); Nitrite,Urine Negative (Negative); Urobilinogen,Urine 0.2 (0.2,1.0)
[2022-01-21 01:27] LABS: Basophils # (M) 0 X 10*3/uL (0.00-0.10); Eosinophils # (M) 0.13 X 10*3/uL (0.04-0.35); Lymphocytes # (M) 7.98 X 10*3/uL (0.90-5.00); Monocytes # (M) 0.63 X 10*3/uL (0.20-1.00); Neutrophils # (M) 3.93 X 10*3/uL (2.00-8.90); Neutrophils % (M) 31 %
== END | disposition home or self-care (01) ==
LOC: LABWHC1 06:55
PROVIDERS: ATTEND Family Medicine
DX: Z00.01 Encounter for general adult medical examination with abnormal findings (principal)
CPT/HCPCS: 36415; 80053; 81003; 82306; 84153; 84439; 84443; 85025

== ENCOUNTER → 2022-03-13 | Outpatient (CLI) | payer MEDICARE ==
[2022-03-13 10:04] LABS: Appearance,Urine Clear (Clear); Bilirubin,Urine Negative (Negative); Blood,Urine Trace (Negative); Color,Urine Yellow; Glucose,Urine (UA) Trace (Negative); INR 0.9 (<1.2); Ketones,Urine Negative (Negative); Leukocyte Esterase,Urine Negative (Negative); Mucus,Urine Rare /hpf; Nitrite,Urine Negative (Negative); Partial Thromboplastin Time 22.9 sec (22.0-30.0); Protein,Urine Trace (Negative); Prothrombin Time 10.4 sec (9.0-12.0); RBC,Urine 2 /hpf (0-5); Specific Gravity,Urine 1.023 (1.001-1.035); Urobilinogen,Urine <2.0 mg/dL (<2.0); WBC,Urine <1 /hpf (0-5)
[2022-03-13 10:22] LABS: Basophils # (A) 0.1 k/uL (0-0.2); Basophils % (A) 1 %; Eosinophils # (A) 0.2 k/uL (0-0.7); Eosinophils % (A) 1 %; HCT 43.7 % (39.0-53.0); HGB 14.7 gm/dL (13.0-17.5); Lymphocytes # (A) 7.4 k/uL (1.0-4.8); Lymphocytes % (A) 57 %; MCH 28.9 pg (25.0-35.0); MCHC 33.6 g/dL (31.0-37.0); MCV 85.9 fL (80.0-100.0); Mean Platelet Volume 7.8; Monocytes # (A) 0.4 k/uL (0-1.0); Monocytes % (A) 3 %; Neutrophils # (A) 4.6 k/uL (1.3-7.7); Neutrophils % (A) 35 %; Platelet Count 140 k/uL (150-450); RBC 5.08 m/uL (4.30-5.90)
[2022-03-13 10:33] LABS: ALT 20 U/L (4-49); AST 25 U/L (17-59); African American GFR (CKD) >90 (>60 ml/min/1.73 sqM); Albumin 4.4 g/dL (3.5-5.0); Alkaline Phosphatase 41 U/L (38-126); Anion Gap 7 mmol/L; Bilirubin,Unconjugated 0.3 mg/dL (0.0-1.1); Blood Urea Nitrogen 17 mg/dL (9-20); Carbon Dioxide 24 mmol/L (22-30); Chloride 107 mmol/L (98-107); Globulin 2.2 g/dL; Glucose 125 mg/dL (74-99); Magnesium 2.2 mg/dL (1.6-2.3); Non-African American GFR(CKD) >90 (>60 ml/min/1.73 sqM); Potassium 4.3 mmol/L (3.5-5.1); Sodium 138 mmol/L (137-145); Total Bilirubin 0.5 mg/dL (0.2-1.3); Total Protein 6.6 g/dL (6.3-8.2)
[2022-03-13 10:50] LABS: RBC Morphology Normal
--- NOTE | 2022-03-13 13:23 | CT ---
EXAMINATION TYPE: CT TAVR Planning DATE OF EXAM: 03/13/2022 HISTORY: Pre surgical for TAVR. CT DLP: 2202.6 mGycm Automated Exposure Control for Dose Reduction was Utilized. CONTRAST: CT scan of the chest, abdomen and pelvis is performed with IV Contrast, patient injected with 125ml m L of Isovue 370. COMPARISON: CT dated 04/08/2021 TECHNIQUE: Helical imaging obtained through the chest, abdomen and pelvis during arterial phase melquiades chapin administration of radiographic contrast intravenously. FINDINGS: See report from [employer] regarding preprocedural planning CHEST: Lower Neck and Thyroid: Millimetric hypodensities within the thyroid gland, possibly representing tin y cysts/nodules. Lungs: No significant findings Central Airway: No significant findings Pleura: No significant findings Pulmonary Arteries: No significant findings Heart and Pericardium: Aortic valve calcifications. The ascending aorta measures 4 cm. Suspected prev ious CABG. Lymph Nodes: No pathologically enlarged lymph nodes in the chest. Mediastinum & Esophagus: No significant findings ABDOMEN/PELVIS: Please note arterial phase of the imaging limits detailed evaluation of the solid abdominal organs. Liver: No significant findings Spleen: No significant findings Kidneys: Left renal cysts, otherwise unremarkable kidneys. Adrenal Glands: No significant findings Pancreas: No significant findings Gallbladder: No significant findings Bowel and Mesentery: Scattered uncomplicated colonic diverticulosis. Lymph Nodes: No pathologically enlarged lymph nodes in the abdomen or the pelvis. Urinary Bladder: Slightly thickened wall, please correlate with urinalysis results. Pelvic Organs: No significant findings Other: Scattered arterial atherosclerotic calcifications. Normal branching anatomy of the aortic arch . No sizable ascites. Other Lines/Tubes/Devices/Hardware: None IMPRESSION: Presurgical planning CT demonstrating findings as described above.
[2022-03-13 16:30] LABS: Chol/HDL Ratio 2.47 Ratio; LDL Cholesterol,Calculated 31.7 mg/dL (0.0-131.0)
== END | disposition home or self-care (01) ==
LOC: LABWHC1 08:48
PROVIDERS: ATTEND Thoracic Surgery (Cardiothoracic Vascular Surgery)
DX: Z01.812 Encounter for preprocedural laboratory examination (principal); E87.8 Other disorders of electrolyte and fluid balance, not elsewhere classified; Z79.899 Other long term (current) drug therapy; R58 Hemorrhage, not elsewhere classified; E07.9 Disorder of thyroid, unspecified; R35.0 Frequency of micturition; Z79.01 Long term (current) use of anticoagulants; I35.0 Nonrheumatic aortic (valve) stenosis; E11.9 Type 2 diabetes mellitus without complications; N28.9 Disorder of kidney and ureter, unspecified; E78.5 Hyperlipidemia, unspecified
CPT/HCPCS: 94150; 83880; 80061; 80053; 84443; 82248; 83735; 85025; 85610; 85730; 81001; 87086; 83036; 71275; 74174; 36415; Q9967

== ENCOUNTER → 2022-03-17 | Outpatient (CLI) | payer MEDICARE ==
[2022-03-17 16:03] LABS: Basophils # (A) 0.1 k/uL (0-0.2); Basophils % (A) 1 %; Eosinophils # (A) 0.1 k/uL (0-0.7); Eosinophils % (A) 1 %; HCT 45.1 % (39.0-53.0); HGB 15.3 gm/dL (13.0-17.5); Lymphocytes # (A) 7.5 k/uL (1.0-4.8); Lymphocytes % (A) 61 %; MCH 28.8 pg (25.0-35.0); MCV 84.8 fL (80.0-100.0); Mean Platelet Volume 7.5; Monocytes # (A) 0.4 k/uL (0-1.0); Monocytes % (A) 3 %; Neutrophils # (A) 3.9 k/uL (1.3-7.7); Neutrophils % (A) 32 %; Platelet Count 147 k/uL (150-450); RBC 5.32 m/uL (4.30-5.90); RDW 13.2 % (11.5-15.5); WBC 12.3 k/uL (3.8-10.6)
[2022-03-17 17:14] LABS: Erythrocyte Sedimentation Rate 2 mm/hr (0-15)
[2022-03-17 17:21] LABS: RBC Morphology Normal
[2022-03-17 22:37] LABS: African American GFR (CKD) 108.6 (60.0-200.0); Albumin 4.8 g/dL (3.8-4.9); Albumin/Globulin Ratio 2.67 (1.60-3.17); Anion Gap 13.4 mmol/L (10.00-18.00); BUN/Creat Ratio 22.25 Ratio (12.00-20.00); Blood Urea Nitrogen 17.8 mg/dL (9.0-27.0); Calcium 9.4 mg/dL (8.7-10.3); Carbon Dioxide 22.6 mmol/L (20.0-27.5); Globulin 1.8 g/dL (1.6-3.3); Non-African American GFR(CKD) 93.7 (60.0-200.0); Potassium 4.1 mmol/L (3.5-5.5); Total Bilirubin 0.6 mg/dL (0.30-1.20); Total Protein 6.6 g/dL (6.2-8.2)
== END | disposition home or self-care (01) ==
LOC: LABWHC1 14:42
PROVIDERS: ATTEND Family Medicine
DX: Z01.812 Encounter for preprocedural laboratory examination (principal); D72.829 Elevated white blood cell count, unspecified
CPT/HCPCS: 36415; 80053; 85025; 85652; 86850; 86900; 86901

== ENCOUNTER → 2022-03-27 | Outpatient (CLI) | payer MEDICARE ==
[2022-03-27 08:43] LABS: INR 0.9 (<1.2); Partial Thromboplastin Time 23.5 sec (22.0-30.0); Prothrombin Time 10.3 sec (9.0-12.0)
[2022-03-27 10:33] LABS: HCT 44.8 % (39.6-50.0); HGB 14.8 g/dL (13.0-17.0); MCH 27.9 pg (27.0-32.0); MCV 84.5 fL (80.0-97.0); Mean Platelet Volume 9.9 fL (9.5-12.2); NRBC Per 100 WBC 0 /100 WBCS (0.0-0.0); Platelet Count 153 X 10*3/uL (140-440); WBC 13.24 X 10*3/uL (4.50-10.00)
[2022-03-27 10:49] LABS: African American GFR (CKD) 108.6 (60.0-200.0); Albumin 4.7 g/dL (3.8-4.9); Albumin/Globulin Ratio 2.76 (1.60-3.17); BUN/Creat Ratio 17.13 Ratio (12.00-20.00); Blood Urea Nitrogen 13.7 mg/dL (9.0-27.0); Calcium 9.3 mg/dL (8.7-10.3); Globulin 1.7 g/dL (1.6-3.3); Non-African American GFR(CKD) 93.7 (60.0-200.0); Potassium 4.6 mmol/L (3.5-5.5); Total Bilirubin 0.5 mg/dL (0.30-1.20); Total Protein 6.4 g/dL (6.2-8.2)
== END | disposition home or self-care (01) ==
LOC: LABWHC1 07:46
PROVIDERS: ATTEND Thoracic Surgery (Cardiothoracic Vascular Surgery)
DX: I35.0 Nonrheumatic aortic (valve) stenosis (principal)
CPT/HCPCS: 36415; 80053; 85027; 85610; 85730

== ENCOUNTER 2022-04-02 05:48 | Inpatient (IN) | payer MEDICARE ==
[2022-04-02] MEDS ORDERED: METOPROLOL TARTRATE 25 MG TAB PO ONE (06:00)
[2022-04-02] MEDS ORDERED: ELECTROLYTE-A SOLUTION 1,000 ML with POTASSIUM CHLORIDE 100 MEQ, MAGNESIUM SULFATE 16 M... IV PRN ×5 (06:00)
[2022-04-02] MEDS ORDERED: SODIUM CHLORIDE 0.9% 500 ML 500 ML INTRAARTER PRN (06:00)
[2022-04-02] MEDS ORDERED: INSULIN REGULAR 100 UNIT in SODIUM CHLORIDE 0.9% 100 ML IV PRN (06:00)
[2022-04-02] MEDS ORDERED: ATORVASTATIN 10 MG TAB PO ONE (06:00)
[2022-04-02] MEDS ORDERED: ASPIRIN 325 MG TAB PO ONE (06:00)
[2022-04-02] MEDS ORDERED: CLEVIDIPINE BUTYRATE 25 MG in EMPTY BAG 1 BAG IV PRN (06:00)
[2022-04-02] MEDS ORDERED: PROTAMINE SULFATE 250 MG in EMPTY BAG 1 BAG IV PRN (06:00)
[2022-04-02] MEDS ORDERED: NITROGLYCERIN-D5W PMX 25 MG/250 ML BTL IV PRN (06:00)
[2022-04-02] MEDS ORDERED: CLOPIDOGREL 75 MG TAB PO ONE (06:00)
[2022-04-02] MEDS ORDERED: MUPIROCIN 2% OINT 22 GM TUBE NASAL SCH (06:00)
[2022-04-02] MEDS ORDERED: LACTATED RINGERS 1,000 ML IV SCH ×2 (06:00→10:14)
[2022-04-02] MEDS ORDERED: TRANEXAMIC ACID 2,000 MG in SODIUM CHLORIDE 0.9% 80 ML IV PRN (06:00)
[2022-04-02] MEDS ORDERED: SODIUM CHLORIDE 0.9% 1,000 ML IV ONE ×2 (06:10)
[2022-04-02 06:43] LABS: Glucose,Whole Blood 123 mg/dL (70-110)
[2022-04-02] MEDS ORDERED: MIDAZOLAM 2 MG/2 ML VIAL IVP ONE (07:30)
[2022-04-02] MEDS ORDERED: HEPARIN SODIUM,PORCINE 10,000 UNIT/ML 1 ML VIAL ONE (07:53)
[2022-04-02] MEDS ORDERED: MIDAZOLAM 2 MG/2 ML VIAL ONE (07:53)
[2022-04-02] MEDS ORDERED: ROCURONIUM 10 MG/ML (5 ML VIAL) IV ONE (07:53)
[2022-04-02] MEDS ORDERED: PROPOFOL 10 MG/ML 20 ML VIAL IV ONE (07:53)
[2022-04-02] MEDS ORDERED: PHENYLEPHRINE-0.9% NACL SYG 1,000 MCG/10 ML SYRINGE ONE (07:53)
[2022-04-02] MEDS ORDERED: SUCCINYLCHOLINE CHLORIDE 100 MG/5 ML SYR IV ONE (07:53)
[2022-04-02] MEDS ORDERED: fentaNYL (PF) 50 MCG/ML 2 ML AMP ONE (07:53)
[2022-04-02] MEDS ORDERED: NEOSTIGMINE 1 MG/ML 10 ML VIAL ONE (07:53)
[2022-04-02] MEDS ORDERED: PROTAMINE SULFATE 10 MG/ML 5 ML VIAL IV ONE (07:53)
[2022-04-02] MEDS ORDERED: GLYCOPYRROLATE 0.2 MG/ML 2 ML VIAL ONE (07:53)
[2022-04-02] MEDS ORDERED: VERAPAMIL 2.5 MG/ML 2 ML AMP ONE (08:51)
[2022-04-02] MEDS ORDERED: IOPAMIDOL-250 100ML BTL INTRAARTER ONE (09:15)
[2022-04-02] MEDS ORDERED: IOPAMIDOL-370 50ML BTL INJ ONE (09:15)
--- NOTE | 2022-04-02 09:54 | P.OP ---
Date of Procedure: 04/02/22 Preoperative Diagnosis: Bicuspid calcific aortic stenosis Postoperative Diagnosis: Same Procedure(s) Performed: Transcatheter aortic valve replacement with 26 mm Laurita 3 valve via right transfemoral percutaneous Implants: 26 mm Laurita 3 valve Anesthesia: GETA Surgeon: Pedro Benavides (Cardiovascular surgeon) Poured Concrete Wall Technician #1: Jayce Machado (First sawsmith) Poured Concrete Wall Technician #2: Marty Reis (Second sawsmith) Estimated Blood Loss (ml): 20 IV fluids (ml): 1,000 Urine output (ml): 0 Pathology: none sent Condition: stable Disposition: PACU Indications for Procedure: 66-year-old male with previous coronary bypass surgery presents with symptomatic bicuspid aortic valvular stenosis. He has mild enlargement of the ascending aorta. He was seen in the high risk valve clinic. Decision was made to proceed with transcatheter aortic valve replacement rather than redo sternotomy and surgical aortic valve replacement. [place] the cerebral protection was planned. Valdez valve was chosen due to potential for future percutaneous coronary revascularization. Operative Findings: Stapling device was successfully deployed in the left carotid and innominate arteries. Peak to peak gradients across the valve were 35 mmHg and mean gradients were 30 mmHg. Valve was bicuspid and crossed without terrible difficulty. Predilatation with a 18 mm true balloon proceeded without event. 26 valve was deployed with excellent position. There was trivial paravalvular leak noted on DONYA and root angiography. Successful closure of the right femoral artery was obtained and angiography showed no narrowing or leak. Description of Procedure: Patient was brought to the Livestock Sales Representative. General anesthesia was induced. He was appropriately positioned and the anterior torso and bilateral groins and right wrist were sterilely prepped and draped. Right subclavian vein was punctured with an 18-gauge needle and guidewire threaded into the right heart. Introducer and dilator were placed and through the introducer a screw-in ventricular lead was manipulated into the apex of the ventricle. Pacing thresholds below 1 V were obtained. Lead was secured to the skin with 2-0 silk suture ligatures. Bilateral femoral access was obtained under ultrasound guidance. On the left a long 6-Comoran Mauri sheath was advanced into the descending thoracic aorta and a pigtail advanced into the right coronary sinus of Valsalva. Root injection was performed. On the right short 6-[place]oran sheath was placed and then 2 Perclose devices were placed in the right femoral artery. Following this a 8-[place]or[place] sheath was placed. Right radial access was obtained and a 6-[place]oran sheath placed. The sentinel device was advanced over a grand slam wire and appropriately positioned in the left carotid distally and innominate artery on the proximal. The 2 baskets were opened and the wire was pulled back. Stiff wire was placed from the right groin and the 8-Comoran sheath exchanged for a 14- [place] Valdez sheath. Through this the valve was crossed with a straight wire utilizing an AL-1 catheter. Once across the valve exchanged and a pigtail was placed in the apex of the ventricle. Gradients were obtained. Safari wire was placed in the apex of the ventricle. 18 true balloon was advanced over the Safari wire and the predilatation of the aortic valve was performed under rapid ventricular pacing. Following this 26 Valdez Laurita 3 delivery system was advanced into the descending thoracic aorta. The balloon was pulled back into the valve stent at appropriate depth and then the valve was advanced around the arch and across the [place] aortic valve. Pressure was pulled back. Valve was positioned at appropriate depth and checked with root angiography. The valve was then deployed under rapid ventricular pacing and deployed in an appropriate level. DONYA demonstrated only trivial paravalvular leak. The delivery system and wire had been pulled back into the descending thoracic aorta. Pigtail catheter was pulled back above the valve and root angiogram obtained. Good flow in the coronary arteries with trivial AI was noted. Was decided to accept placement of the valve and the valve delivery system was pulled back through the 14-[place]oran sheath. [place] device was removed. Heparin was reversed with protamine. Valdez sheath was removed and the 2 Perclose devices deployed with excellent hemostasis. Angiography of the right iliofemoral was obtained from the left side and on the left side catheter was removed. Patient was awakened and transferred to ICU in stable condition.
[2022-04-02 10:09] LABS: Glucose,Whole Blood 102 mg/dL (70-110)
[2022-04-02] MEDS ORDERED: IPRATROPIUM-ALBUTEROL 3 ML NEB INHALATION PRN (10:14)
[2022-04-02] MEDS ORDERED: Potassium Replacement Protocol 1 EACH MISC MISCELLANE PRN (10:14)
[2022-04-02] MEDS ORDERED: MECLIZINE 12.5 MG TAB PO PRN (10:14)
[2022-04-02] MEDS ORDERED: Magnesium Replacement Protocol 1 EACH MISC MISCELLANE PRN (10:14)
[2022-04-02] MEDS ORDERED: ONDANSETRON 4 MG/2 ML VIAL IVP PRN (10:14)
[2022-04-02] MEDS ORDERED: ACETAMINOPHEN TAB 325 MG TAB PO PRN (10:14)
[2022-04-02] MEDS ORDERED: CLEVIDIPINE BUTYRATE 25 MG in EMPTY BAG 1 BAG IV SCH (10:15)
[2022-04-02] MEDS ORDERED: CLEVIDIPINE BUTYRATE 25 MG/50 ML VIAL IV ONE (10:15)
--- NOTE | 2022-04-02 10:17 | P.ANPRN ---
Procedure Note - Anesthesia - Invasive Line Left Arterial Line Time Out Performed: Yes Date of Procedure: 04/02/22 Time of Procedure: 07:30 Location of Patient: PreOp Preparation: Sterile Prep, Sterile Dressing Arterial Line Location: Radial Ultrasound Used: Yes Purpose - Visualization and Identification of Vasculature: Yes Image Stored and Saved: Yes Narrative: Left arm prepped and draped. 1% lidocaine 3 ml infiltrated. Under u/s guidance 20 g arrow advanced into left radial artery. Line sutured in place and sterile dressing applied
--- NOTE | 2022-04-02 10:27 | P.ANPRN ---
Procedure Note - Anesthesia - DONYA Intraop Pre Bypass DONYA Intraop - Anesthesia Indication: Aortic stenosis Date of Procedure: 04/02/22 Pre-operative Diagnosis: aortic stenosis Post-operative Diagnosis: same Surgeon: Pedro Benavides Left Ventricle: LVH, EF 55% Ejection Fraction: Normal Regional Wall Motion Abnormalities: None Left Ventricle Hypertrophy: Yes R. Ventricle Function: Normal Aortic Valve: Fusion of Right and left coronary cusps. Trace AI, Peak 67 mmH2O, Mean 44 mmH2O Anatomy: Other Aortic Stenosis: Severe Aortic Regurgitation: Trace Mitral Stenosis: None Mitral Regurgitation: Trace Tricuspid Stenosis: None Tricuspid Regurgitation: Trace Pulmonic Stenosis: None Pulmonic Regurgitation: Trace R. Atrial Dilation: No R. Atrial PFO: No L. Atrial Dilation: No Aortic Dissection: No Aortic Calcification: Mild Plural Effusion: None - DONYA Intraop Post Bypass DONYA Intraop Post Bypass Procedure Performed: TAVR Left Ventricle: Unchanged Ejection Fraction: Normal Regional Wall Motion Abnormalities: None R. Ventricle Function: Normal Aortic Valve: Good position. Trace perivalvular leak NCC. Peak 13 mmH2O, Mean 9 mmH2O Mitral Valve: Unchanged Tricuspid: Unchanged Pulmonic: Unchanged Aortic Dissection: No
[2022-04-02] MEDS: HYDROcodone/APAP 10-325MG 1 EACH TAB PO PRN ×3 (11:27→18:07)
--- NOTE | 2022-04-02 11:33 | XR ---
EXAMINATION TYPE: XR chest 1V portable DATE OF EXAM: 04/02/2022 CLINICAL HISTORY: Postopen cardiac surgery. TECHNIQUE: Single AP portable frontal view of the chest is obtained. COMPARISON: Chest x-ray from October 21, 2013. Preoperative CT March 13, 2022 FINDINGS: Somewhat low lung volumes with right internal jugular pacemaker wire on current study. Ove rlying sternal wires and mediastinal clips are redemonstrated. Superior sternal wire is broken simila r to priors. New stent graft in the aortic root is seen. Low lung volumes without suspicious focal airspace opacity, pleural effusion, or pneumothorax seen bi laterally. Cardiac silhouette size stable and within normal limits. Osseous structures are intact. IMPRESSION: As above.
[2022-04-02 11:51] VITALS: BMI 28.9
[2022-04-02 12:11] LABS: HGB 15.7 gm/dL (13.0-17.5); MCH 29.6 pg (25.0-35.0); MCHC 34.9 g/dL (31.0-37.0); MCV 84.8 fL (80.0-100.0); Mean Platelet Volume 7.5; Platelet Count 142 k/uL (150-450); RBC 5.31 m/uL (4.30-5.90); RDW 13.2 % (11.5-15.5); WBC 12.3 k/uL (3.8-10.6)
[2022-04-02 12:19] LABS: Partial Thromboplastin Time 24.9 sec (22.0-30.0); Prothrombin Time 10.6 sec (9.0-12.0)
[2022-04-02 12:24] LABS: Ionized Calcium 4.8 mg/dL (4.5-5.3)
[2022-04-02 12:32] LABS: ALT 28 U/L (4-49); AST 35 U/L (17-59); African American GFR (CKD) >90 (>60 ml/min/1.73 sqM); Albumin 4.6 g/dL (3.5-5.0); Alkaline Phosphatase 52 U/L (38-126); Anion Gap 12 mmol/L; Blood Urea Nitrogen 15 mg/dL (9-20); Calcium 8.8 mg/dL (8.4-10.2); Carbon Dioxide 22 mmol/L (22-30); Chloride 104 mmol/L (98-107); Glucose 123 mg/dL (74-99); Magnesium 1.8 mg/dL (1.6-2.3); Non-African American GFR(CKD) >90 (>60 ml/min/1.73 sqM); Potassium 3.7 mmol/L (3.5-5.1); Sodium 138 mmol/L (137-145); Total Bilirubin 1.2 mg/dL (0.2-1.3); Total Protein 6.9 g/dL (6.3-8.2)
[2022-04-02] MEDS: INSULIN ASPART (NovoLOG) 100 UNIT/ML VIAL SQ SCH ×3 (12:46→21:22)
[2022-04-02 12:52] LABS: Eosinophils # (M) 0.12 k/uL (0-0.7); Lymphocytes # (M) 7.26 k/uL (1.0-4.8); Neutrophils # (M) 4.92 k/uL (1.3-7.7); Neutrophils % (M) 40 %; Nucleated Red Blood Cells 0 /100 WBC (0-0); Total Cells Counted 100
[2022-04-02 12:53] LABS: Polychromasia Present
--- NOTE | 2022-04-02 13:29 | P.CNPUL ---
History of Present Illness Consult date: 04/02/22 Requesting physician: Pedro Benavides Reason for consult: other (ICU management, status post aVR) Chief complaint: Severe aortic stenosis History of present illness: This is a 66-year-old white male with history of symptomatic bicuspid aortic valve stenosis, previous CABG, patient underwent transcatheter aortic valve replacement with 26 mm Laurita 3 valve via transfemoral percutaneous route, po stoperatively the patient was admitted to the ICU, and I was asked to see him on consultation. Patient had previous CABG about 8 years ago, and recently has been noticed to have more shortness of breath on exertion, more fatigue, further workup revealed severe bicuspid aortic valve stenosis his other medical problems include hypertension, dyslipidemia, thoracic aortic aneurysm, bilateral carotid artery stenosis, obstructive sleep apnea, on CPAP, and previous history of closed head injury in 2008, generalized anxiety disorder, severe back pain and degenerative joint disease. Patient is a former smoker and social drinker. Review of Systems Constitutional: Fatigue. No fever no chills no weight loss HEENT: Negative Pulmonary dyspnea on exertion Cardiac as noted in HPI GI: Negative Genitourinary: Negative Muscular skeletal: Negative Urologic: Negative Hematologic: Negative Psychiatric: Generalized anxiety disorder Skin: Negative Past Medical History Past Medical History: Coronary Artery Disease (CAD), Diabetes Mellitus, Hyperlipidemia, Hypertension, Memory Impairment, Osteoarthritis (OA), Sleep Apnea/CPAP/BIPAP Additional Past Medical History / Comment(s): uses CPAP. HX CLOSED HEAD INJURY and leg injury tore -2008 History of Any Multi-Drug Resistant Organisms: None Reported Past Surgical History: Back Surgery, Coronary Bypass/CABG, Heart Catheterization, Hernia Repair, Orthopedic Surgery, Tonsillectomy Additional Past Surgical History / Comment(s): 5- HERNIA SX, back surg. x2. FATTY TUMOR REMOVED FROM CHEST. LT ROTATOR CUFF REPAIR. LT LEG TENDON REATTACHMENT. CABG-10/21/2013-quad bypass. BILAT CATARACTS REMOVED. COLONOSCOPY. EDG Past Anesthesia/Blood Transfusion Reactions: No Reported Reaction Smoking Status: Former smoker - Past Family History Mother Family Medical History: Coronary Artery Disease (CAD) Father Family Medical History: Cancer Additional Family Medical History / Comment(s): skin Medications and Allergies Home Medications Medication Instructions Recorded Confirmed Type ALPRAZolam [Xanax] 1 mg PO Q8HR PRN 06/19/04/02/22 History Meclizine [Antivert] 12.5 mg PO BID PRN 06/19/15 03/25/22 History Metoprolol Tartrate [Lopressor] 25 mg PO BID 06/19/15 04/02/22 History buPROPion HCL [Wellbutrin SR] 150 mg PO DAILY 06/19/15 04/02/22 History lisinopriL [Zestril] 2.5 mg PO DAILY 06/19/15 04/02/22 History traZODone HCL [Oleptro ER] 150 mg PO HS 06/19/15 04/02/22 History Aspirin [Adult Low Dose Aspirin EC] 162 mg PO DAILY 12/05/19 04/02/22 History metFORMIN HCL [Glucophage] 1,000 mg PO BID 12/05/19 04/02/22 History HYDROcodone/APAP 10-325MG [[place] 1 tab PO Q4-6H PRN 02/13/22 04/02/22 History 10-325] Rosuvastatin [Crestor] 20 mg PO HS 02/13/22 04/02/22 History Allergies Allergy/AdvReac Type Severity Reaction Status Date / Time No Known Allergies Allergy Verified 04/02/22 06:46 Physical Exam Vitals: Vital Signs Temp Pulse Pulse Resp BP BP Pulse Ox 04/02/22 12:00 68 16 95 04/02/22 11:45 70 16 93 L 04/02/22 11:30 65 16 92 L 04/02/22 11:15 69 16 93 L 04/02/22 11:00 65 16 92 L 04/02/22 10:45 69 16 90 L 04/02/22 10:30 59 L 16 91 L 04/02/22 10:23 97.7 F 66 20 90 L 04/02/22 06:58 97.9 F 58 L 16 173/81 173/83 95 Intake and Output 04/01/22 04/02/22 04/02/22 22:59 06:59 14:59 Intake Total 200 Balance 200 Intake: IV 200 Other: Weight 87.5 kg 87.5 kg ABP, PAP, CO, CI - Last 8 Hours Arterial Blood Pressure 164/66 Arterial Blood Pressure 156/64 Arterial Blood Pressure 150/58 Arterial Blood Pressure 160/62 Arterial Blood Pressure 148/64 Arterial Blood Pressure 164/64 Arterial Blood Pressure 211/79 Arterial Blood Pressure 204/81 Physical Exam: Revealed a 66-year-old white male in no distress, on room air. HEENT:[Neck is supple.] [No neck masses.] [No thyromegaly.] [No JVD.] Chest: [Clear throughout, no crackles, no rhonchi, no wheezes.] Cardiac Exam: [Normal S1 and S2, no S3 gallop, 2/6 systolic murmur thought the precordium. Abdomen: [Soft, nontender, no megaly, no rebound, no guarding, normal bowel sounds.] Extremities: [No clubbing, no edema, no cyanosis.] Neurological Exam: [No focal neurologic deficit.] Alert and oriented 3. Psychiatric: Normal mood affect and normal mental status examination. Skin: No rashes. Results - Laboratory Findings CBC and BMP: 04/02/22 11:50 04/02/22 11:50 PT/INR, D-dimer PT 10.6 sec (9.0-12.0) 04/02/22 11:50 INR 1.0 (<1.2) 04/02/22 11:50 Abnormal lab findings: Abnormal Labs 03/27/22 04/02/22 04/02/22 07:53 06:31 11:50 WBC 12.3 H Plt Count 142 L Lymphocytes # (Manual) 7.26 H Creatinine Glucose POC Glucose (mg/dL) 123 H Crossmatch See Detail 04/02/22 11:50 WBC Plt Count Lymphocytes # (Manual) Creatinine 0.62 L Glucose 123 H POC Glucose (mg/dL) Crossmatch Assessment and Plan Assessment: Impression: Status post TAVR, postoperative day #0. Severe symptomatic aortic stenosis Hypertension Dyslipidemia Coronary artery disease and previous CABG in 2013 Type 2 diabetes Chronic diastolic congestive heart failure Ascending aortic aneurysm measuring 4.0 cm. Carotid artery stenosis Previous tobacco use/ex-smoker Recommendation: Continue to monitor the patient in the ICU. Resume cardiac meds including statins aspirin and Plavix and subcu heparin, as well as beta blockers/metoprolol Resume home meds, including Xanax and Wellbutrin. Hemodynamic monitoring and address accordingly. Resume bronchodilators/DuoNeb Incentive spirometry Early ambulation We will continue to follow while in the ICU. Time with Patient: Greater than 30
[2022-04-02] MEDS: HEPARIN SODIUM,PORCINE/PF 5,000 UNIT/0.5 ML SYRINGE SQ SCH (17:13)
[2022-04-02] MEDS ORDERED: TAMSULOSIN 0.4 MG CAP.ER.24H PO SCH (18:30)
--- NOTE | 2022-04-02 19:40 | P.OP ---
Description of Procedure: Transcatheter Aoritc Valve Replacement Operative report PROCEDURE PERFORMED: 1. Percutaneous Aortic Valve Implantation using a 26 mm Laurita S3. 2. Transesophageal echocardiography (performed by anesthesia) 3. Ultrasound guided access and repair of right femoral artery access site by Perclose closure device. 4. Placement of temporary pacemaker wire. 5. Aortic root angiography 6. [place] cerebral protection device placement 7. Pre balloon aortic valvuloplasty with a 18mm True balloon INDICATIONS: 1. 66 year-old with a history of severe symptomatic bicuspid aortic valve stenosis. 2. High risk for redo sternotomy from prior CABG 3. Multiple medical problems including carotid artery stenosis, closed head injury, DM type 2, prior tobacco abuse, chronic diastolic heart failure NYHA class 3 symptoms, mild ascending aortic aneurysm PERFORMING PHYSICIANS: 1. Jayce Machado DO Interventional Cardiology 2. Marty Reis MD Interventional Cardiology. 3. Pedro Benavides MD, Cardiothoracic Surgeon. 4. Yenifer Forde MD Proctoring Interventional cardiology SEDATION: General anesthesia provided by anesthesia, see separate note APPROACH: Right femoral artery via percutaneous approach PROCEDURE DESCRIPTION: The patient was discussed at valve clinic with multidisciplinary approach with cardiothoracic surgeon as well as computer customer support specialist and thought better treated with TAVR. Risks, benefits, and alternatives of the procedure had been explained to the patient who understood the risks and agreed to proceed. After consents were obtained, patient was brought to the transcatheter aortic valve implantation room in the cardiac shrimp pond laborer and general anesthesia was provided by the anesthesiologist (see separate report). Once full body sterile prep was performed, right subclavian venous access was obtained and a temporary pacemaker was screwed in, performed by cardiothoracic surgery. Pacing threshholds were checked and deemed appropriate. Next the left femoral artery was accessed using a modified Seldinger technique, ultrasound guidance and micropuncture technique. A 6 [place] Rabi sheath was placed in the left femoral artery. Next, a 6-[place] pigtail catheter was advanced into the aorta and positioned in the aortic root, aortic root angiography was performed to determine optimal deployment angle. The right femoral artery was accessed using modified Seldinger technique, micropuncture technique and under direct ultrasound guidance. Femoral angiogram was done showing access in the common femoral artery and a 6Fr sheath was placed. Next preclose technique was performed using 2 Percloses at 10 and 2 O'clock. Next a 0.035 [place] wire was placed in the Aorta via a pigtail catheter. Over that the arteriotomy was serially dilated and a 14 Fr Valdez sheath was placed. Next a 6Fr sheath was placed in the right radial artery using modified Seldinger technique. A [place] cerebral protection device was advanced into the right innominate artery and the first basket was deployed then advanced into the left carotid and the second basket was deployed with the help of a 0.014 [place] wire. Next a 6F- AL1 catheter was advanced over a wire to the aortic root. A straight wire was advanced through the catheter and used to cross the severely stenotic valve. The AL1 was then exchanged for a 6Fr pigtail catheter and pressure measurements were obtained. The 0.035 [place] wire was then positioned in the apex. Next, predilation was performed with a 18mm True balloon with rapid pacing. The balloon was removed. Next a 26 mm Laurita S3 valve was advanced into position and position was verified with angiography. The valve was then deployed in proper position using slow inflation with -1cc in balloon with rapid pacing. The delivery system was withdrawn back into the arch and an aortic root injection in conjunction with DONYA demonstrated a satisfactory result. There was trace para valvular leak. There was no evidence of any other significant abnormalities. The [place] device baskets were retrieved and the [place] was removed. The preclose Perclose was then deployed in the right femoral artery and hemostasis was achieved. The pigtail was then advanced to the level of the iliac bifurcation via the left femoral access. Femoral angiogram was performed that showed no contrast leak. The left femoral angiogram demonstrated an arteriotomy in the common femoral artery and this was repaired using a 6F angioseal device with complete hemostasis. The temporary venous pacemaker was sutured in place. The right radial sheath was removed and a TR band was placed with hemostasis achieved. The patient was then transported to the ICU in hemodynamically stable condition, requiring no pressor support. COMPLICATIONS: None CONCLUSION: 1. Implantaion of 26mm Laurita S3 transcatheter aortic valve via right femoral approach under DONYA and fluoro guidance with trace shruthi-valvular aortic regurgitation. 2. Placement of temporary pacemaker wire 3. Aortic Root Aortogram. 4. Pre TAVR balloon aortic valvuloplasty with a 18mm True balloon 5. [place] cerebral protection device placement RECOMMENDATIONS: The patient will be monitored in the ICU for hemodynamic and electrical stability. Patient will be on aspirin and Plavix.
[2022-04-02] MEDS: ALPRAZolam 1 MG TAB PO PRN (20:23)
[2022-04-02 20:53] LABS: Glucose,Whole Blood 172 mg/dL (70-110)
[2022-04-02] MEDS ORDERED: ATORVASTATIN 40 MG TAB PO SCH (21:00)
[2022-04-02] MEDS ORDERED: METOPROLOL TARTRATE 25 MG TAB PO SCH (21:00)
[2022-04-02] MEDS ORDERED: traZODone HCL 50 MG TAB PO SCH (21:00)
[2022-04-02] MEDS: carvediloL 6.25 MG TAB PO SCH (21:22)
[2022-04-03] MEDS: HYDROcodone/APAP 10-325MG 1 EACH TAB PO PRN (02:36)
[2022-04-03] MEDS: ALPRAZolam 1 MG TAB PO PRN (06:00)
[2022-04-03 07:14] LABS: Glucose,Whole Blood 183 mg/dL (70-110)
[2022-04-03 07:15] LABS: Basophils % (A) 0 %; Eosinophils # (A) 0.1 k/uL (0-0.7); Eosinophils % (A) 0 %; HCT 42.1 % (39.0-53.0); HGB 14.5 gm/dL (13.0-17.5); Lymphocytes # (A) 4.9 k/uL (1.0-4.8); Lymphocytes % (A) 41 %; MCH 29.4 pg (25.0-35.0); MCHC 34.5 g/dL (31.0-37.0); MCV 85.3 fL (80.0-100.0); Mean Platelet Volume 7.3; Monocytes # (A) 0.7 k/uL (0-1.0); Monocytes % (A) 6 %; Neutrophils # (A) 5.9 k/uL (1.3-7.7); Neutrophils % (A) 50 %; Platelet Count 129 k/uL (150-450); RBC 4.93 m/uL (4.30-5.90); RDW 13.3 % (11.5-15.5); WBC 11.8 k/uL (3.8-10.6)
[2022-04-03] MEDS: carvediloL 6.25 MG TAB PO SCH (07:21)
[2022-04-03] MEDS: INSULIN ASPART (NovoLOG) 100 UNIT/ML VIAL SQ SCH (07:21)
[2022-04-03 07:25] LABS: ALT 20 U/L (4-49); AST 26 U/L (17-59); African American GFR (CKD) >90 (>60 ml/min/1.73 sqM); Albumin 4.4 g/dL (3.5-5.0); Alkaline Phosphatase 50 U/L (38-126); Anion Gap 10 mmol/L; Blood Urea Nitrogen 12 mg/dL (9-20); Calcium 8.7 mg/dL (8.4-10.2); Carbon Dioxide 23 mmol/L (22-30); Chloride 104 mmol/L (98-107); Glucose 158 mg/dL (74-99); Non-African American GFR(CKD) >90 (>60 ml/min/1.73 sqM); Potassium 3.8 mmol/L (3.5-5.1); Sodium 137 mmol/L (137-145); Total Protein 6.6 g/dL (6.3-8.2)
[2022-04-03] MEDS ORDERED: PANTOPRAZOLE 40 MG TABLET PO SCH (07:30)
[2022-04-03 07:36] LABS: Ionized Calcium 4.7 mg/dL (4.5-5.3)
--- NOTE | 2022-04-03 07:51 | XR ---
EXAMINATION TYPE: XR chest 1V portable DATE OF EXAM: 04/03/2022 HISTORY: Shortness of breath. COMPARISON: 04/02/22 TECHNIQUE: Single view of the chest is submitted. FINDINGS: Right-sided internal jugular pacer is noted. Stent graft is noted at the aortic root. Sternotomy wire s and mediastinal clips are in place. No superior wire is fractured. No evidence for pneumothorax. There is no evidence for focal infiltrate. The heart is stable. [place] and mediastinal structures are within normal limits. Degenerative changes are seen of the dorsal spine. IMPRESSION: 1. Stable chest.
[2022-04-03] MEDS: HEPARIN SODIUM,PORCINE/PF 5,000 UNIT/0.5 ML SYRINGE SQ SCH (07:52)
[2022-04-03] MEDS ORDERED: ASPIRIN 81 MG PO SCH (09:00)
[2022-04-03] MEDS ORDERED: buPROPion SR 150 MG TABLET.ER PO SCH (09:00)
[2022-04-03] MEDS ORDERED: MAGNESIUM HYDROXIDE 2,400 MG/10 ML CUP PO PRN (09:00)
[2022-04-03] MEDS ORDERED: CLOPIDOGREL 75 MG TAB PO SCH (09:00)
--- NOTE | 2022-04-03 09:27 | P.DS ---
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 Calcified aortic valve with severe symptomatic bicuspid aortic valve stenosis 2. Chronic diastolic heart failure with NYHA class III symptoms 3. Hypertension 4. Hyperlipidemia 5. Coronary artery disease status post four-vessel CABG in 2013 6. Right internal carotid artery stenosis 50-79% 7. Ascending aortic aneurysm measuring 4.0 cm 8. Obstructive sleep apnea with CPAP use 9. Previous tobacco dependence 10. Closed head injury in 2008 11. Diabetes mellitus type 2 PROCEDURE: 1. Percutaneous aortic valve implantation using a 26 mm Laurita 3 under DONYA and fluoroscopy guidance 2. Transesophageal echocardiography performed by anesthesia 3. Ultrasound-guided access and repair of right femoral artery access site by Perclose closure device 4. Placement of temporary pacemaker wire 5. Aortic root angiography 6. [place] cerebral protection device placement 7. Pre-balloon aortic valvuloplasty with a 18 mm True balloon HISTORY OF PRESENT ILLNESS: This is a 66-year-old gentleman who follows on an outpatient basis with Dr. Gutierrez for primary care and Dr. Zuleta for cardiology. He has a known history of severe aortic stenosis and has been symptomatic with increased exertional dyspnea as well as progressive fatigue and intermittent episodes of chest pain with activity. He had been referred to structural heart clinic for evaluation for transcatheter aortic valve replacement after heart catheterization and transesophageal echocardiogram were completed. Echocardiography demonstrated systolic function with EF 55-60%, aortic valve area 0.75 cm with a peak/mean gradient 66/43 mmHg. Heart catheterization showed patent RAYMUNDO to the LAD, occluded vein graft to the OM, and patent vein graft to the RCA and diagonal. After workup was completed STS risk score was calculated along with incremental risk and the patient was felt to be high risk for redo sternotomy, therefore transcatheter aortic valve replacement was recommended. The usual course of TAVR was discussed in detail the patient, risks and benefits were reviewed, shared decision making between cardiology, surgery, and the patient/family took place, and the patient consented to proceed with the procedure. HOSPITAL COURSE: The patient was brought to the hospital on 04/02/22, was taken to the extended stay area, prepared in the usual fashion, and subsequently taken to the cardiac catheterization laboratory where Dr. Machado and Dr. Benavides completed TAVR procedure under general anesthesia with fluoroscopy and DONYA. The valve was deployed under rapid ventricular pacing and proceeded without event. At the end of the procedure there was essentially no gradient, hemodynamics were felt to be acceptable, and there was trace perivalvular leak. Upon completion of the procedure the patient was extubated and was transferred to the cardiovas cular intensive care unit where he was recovered and monitored hemodynamically. His oxygen was titrated down, he was tolerating oral diet, his pain was controlled, follow-up TTE demonstrated normal left ventricular systolic function, no significant gradient and no significant paravalvular leak, and he was ready to be discharged to home on postoperative day #1. He received written and verbal instruction regarding his medications, activity restrictions, signs and symptoms requiring physician notification, and follow-up appointments. Patient Condition at Discharge: Stable Plan - Discharge Summary Discharge Rx Participant: Yes New Discharge Prescriptions: New Docusate Sodium [Dok] 100 mg PO DAILY PRN #30 capsule PRN Reason: Constipation Clopidogrel [Plavix] 75 mg PO DAILY #30 tab Acetaminophen Tab [Tylenol] 650 mg PO Q4HR PRN tab PRN Reason: Fever And/ Or Mild Pain (1-3) Continue lisinopriL [Zestril] 2.5 mg PO DAILY ALPRAZolam [Xanax] 1 mg PO Q8HR PRN PRN Reason: Anxiety traZODone HCL [Oleptro ER] 150 mg PO HS buPROPion HCL [Wellbutrin SR] 150 mg PO DAILY Metoprolol Tartrate [Lopressor] 25 mg PO BID Meclizine [Antivert] 12.5 mg PO BID PRN PRN Reason: Vertigo metFORMIN HCL [Glucophage] 1,000 mg PO BID Aspirin [Adult Low Dose Aspirin EC] 162 mg PO DAILY HYDROcodone/APAP 10-325MG [Success 10-325] 1 tab PO Q4-6H PRN PRN Reason: Pain Rosuvastatin [Crestor] 20 mg PO HS Discharge Medication List ALPRAZolam [Xanax] 1 mg PO Q8HR PRN 06/19/15 [History] Meclizine [Antivert] 12.5 mg PO BID PRN 06/19/15 [History] Metoprolol Tartrate [Lopressor] 25 mg PO BID 06/19/15 [History] buPROPion HCL [Wellbutrin SR] 150 mg PO DAILY 06/19/15 [History] lisinopriL [Zestril] 2.5 mg PO DAILY 06/19/15 [History] traZODone HCL [Oleptro ER] 150 mg PO HS 06/19/15 [History] Aspirin [Adult Low Dose Aspirin EC] 162 mg PO DAILY 12/05/19 [History] metFORMIN HCL [Glucophage] 1,000 mg PO BID 12/05/19 [History] HYDROcodone/APAP 10-325MG [Success 10-325] 1 tab PO Q4-6H PRN 02/13/22 [History] Rosuvastatin [Crestor] 20 mg PO HS 02/13/22 [History] Acetaminophen Tab [Tylenol] 650 mg PO Q4HR PRN tab 04/03/22 [Rx] Clopidogrel [Plavix] 75 mg PO DAILY #30 tab 04/03/22 [Rx] Docusate Sodium [Dok] 100 mg PO DAILY PRN #30 capsule 04/03/22 [Rx] Follow up Appointment(s)/Referral(s): Keron Zuleta MD [STAFF PHYSICIAN] - 04/09/22 10:45 am (Your appointment 04/09/22 is for groin check with Dr. Zuleta. You also need a 30 day post TAVR echo (between 04/23/22-06/16/22) which the cardiology office will call you with ) Patrick Gutierrez MD [Primary Care Provider] - As Needed Clinic,Structural Heart [NON-STAFF] - (Please come to the valve clinic after your 30 day post TAVR echo) Activity/Diet/Wound Care/Special Instructions: DISCHARGE INSTRUCTIONS: 1. No driving for 1 week, or until physician gives their ok. 2. No lifting, pushing, or pulling more than 5-10 pounds for 1 week. 3. Hold both groins when you cough or sneeze for the next 2 weeks. Bruising is common, but report increased swelling, pain or fever >101F 4. Shower daily. No pool, hot tub, or bathtub for 1 week 5. No powders, lotions, ointments on incisions. 6. No straining, including for bowel movements. Use stool softner if necessary 7. Stairs are not an issue. Go slowly, using handrail and take 1 step at a time. Ambulate several times daily 8. Continue pain control per as needed orders. 9. Take only the medications listed on your discharge form 10. Eat low salt (limited to 2 grams or 2000 milligrams) daily, avoid adding salt, avoid canned/processed foods 11. Take your weight daily in the morning and record, bring with you to your follow up appointments 12. Keep all follow up appointments. You will need a valve clinic appointment at 30 days and 1 year post procedure for follow up 13. You have been referred to and are expected to begin Cardiac Rehab in approximately 4 weeks. 14. You will need antibiotics prior to any dental work, including cleanings, and any surgeries to prevent Endocarditis (bacterial infection in your heart) 15. Restart metformin tomorrow (04/04/22) For any questions or concerns please call your valve coordinators: Viki or Romario @ Discharge Disposition: HOME SELF-CARE
[2022-04-03 11:06] VITALS: BP 133/78; PULSE 67; RESP 10; TEMP 98.2
--- NOTE | 2022-04-03 13:23 | P.PN ---
Subjective Progress Note Date: 04/03/22 Principal diagnosis: Severe aortic stenosis This is a 66-year-old white male with history of symptomatic bicuspid aortic valve stenosis, previous CABG, patient underwent transcatheter aortic valve replacement with 26 mm Laurita 3 valve via transfemoral percutaneous route, postoperatively the patient was admitted to the ICU, and I was asked to see him on consultation. Patient had previous CABG about 8 years ago, and recently has been noticed to have more shortness of breath on exertion, more fatigue, further workup revealed severe bicuspid aortic valve stenosis his other medical problems include hypertension, dyslipidemia, thoracic aortic aneurysm, bilateral carotid artery stenosis, obstructive sleep apnea, on CPAP, and previous history of closed head injury in 2008, generalized anxiety disorder, severe back pain and degenerative joint disease. Patient is a former smoker and social drinker. Reevaluated today on 04/03/2022, patient remains in the ICU, he is doing abs olutely great. No symptoms whatsoever, patient is on room air, no shortness of breath no cough no wheezing no chest pain. Patient is status post aortic valve implantation/percutaneous, and he had placement of a temporary pacemaker wire. Patient is doing great. Labs this morning are unremarkable including unremarkable CBC and unremarkable basic metabolic profile. Chest x-ray reviewed showed stable chest, no acute pulmonary findings. Objective - Vital Signs Vital signs: Vital Signs Temp 98.2 F 04/03/22 08:00 Pulse 67 04/03/22 10:00 Resp 10 L 04/03/22 10:00 BP 133/78 04/03/22 10:00 Pulse Ox 98 04/03/22 08:00 FiO2 Intake & Output 04/02/22 04/03/22 04/03/22 18:59 06:59 18:59 Intake Total 610 880 620 Output Total 4000 820 350 Balance -3390 60 270 Weight 87.5 kg Intake: IV 330 240 60 Lactated Ringers 1,000 ml 130 240 60 @ 20 mls/hr IV .Q24H [facility] Rx#:[id number] Intake, IV Titration 40 Amount Lactated Ringers 1,000 ml 40 @ 10 mls/hr IV .Q24H [facility] Rx#:[id number] Oral 240 640 560 Output: Urine 4000 820 350 Straight 1700 Other: Voiding Method Urinal # Voids 5 ABP, PAP, CO, CI - Last Documented Arterial Blood Pressure 149/59 - Exam Physical Exam: Revealed a 66-year-old white male in no distress, on room air. HEENT:[Neck is supple.] [No neck masses.] [No thyromegaly.] [No JVD.] Chest: [Clear throughout, no crackles, no rhonchi, no wheezes.] Cardiac Exam: [Normal S1 and S2, no S3 gallop, 2/6 systolic murmur thought the precordium. Abdomen: [Soft, nontender, no megaly, no rebound, no guarding, normal bowel sounds.] Extremities: [No clubbing, no edema, no cyanosis.] Neurological Exam: [No focal neurologic deficit.] Alert and oriented 3. Psychiatric: Normal mood affect and normal mental status examination. Skin: No rashes. - Labs CBC & Chem 7: 04/03/22 06:43 04/03/22 06:43 Labs: Abnormal Lab Results - Last 24 Hours (Table) 03/27/22 04/02/22 04/03/22 Range/Units 07:53 20:52 06:43 WBC 11.8 H (3.8-10.6) k/uL Plt Count 129 L (150-450) k/uL Lymphocytes # 4.9 H (1.0-4.8) k/uL Glucose (74-99) mg/dL POC Glucose (mg/dL) 172 H (70-110) mg/dL Crossmatch See Detail 04/03/22 04/03/22 Range/Units 06:43 07:12 WBC (3.8-10.6) k/uL Plt Count (150-450) k/uL Lymphocytes # (1.0-4.8) k/uL Glucose 158 H (74-99) mg/dL POC Glucose (mg/dL) 183 H (70-110) mg/dL Crossmatch Assessment and Plan Assessment: Impression: Status post TAVR, postoperative day #1 Severe symptomatic aortic stenosis Hypertension Dyslipidemia Coronary artery disease and previous CABG in 2013 Type 2 diabetes Chronic diastolic congestive heart failure Ascending aortic aneurysm measuring 4.0 cm. Carotid artery stenosis Previous tobacco use/ex-smoker Recommendation: Patient is being discharged home. Agree with discharge planning Will follow as needed Time with Patient: Less than 30
[2022-04-03] MEDS ORDERED: SENNOSIDES-DOCUSATE SODIUM 1 EACH TAB PO SCH (21:00)
--- NOTE | 2022-04-04 12:52 | CA ---
Transthoracic Echo Report Name: Pedro Bradford Age: 66 Gender: M : 1955 Exam Date: 04/03/2022 08:47 Exam Location: [facility] Ht (in): 69 Wt (lb): 192 Ordering Physician: Viki Braswell Attending/Referring Phys: [id number], French Mesmerist Elena Pederson RDCS Procedure CPT: Indications: post TAVR Cardiac Hx: Technical Quality: Fair Contrast 1: Total Dose (mL): Contrast 2: Total Dose (mL): MEASUREMENTS (Male / Female) Normal Values 2D ECHO LV Diastolic Diameter PLAX 3.7 cm 4.2 - 5.9 / 3.9 - 5.3 cm LV Systolic Diameter PLAX 2.1 cm IVS Diastolic Thickness 1.9 cm 0.6 - 1.0 / 0.6 - 0.9 cm LVPW Diastolic Thickness 1.8 cm 0.6 - 1.0 / 0.6 - 0.9 cm LV Relative Wall Thickness 1.0 DOPPLER AV Peak Velocity 233.2 cm/s AV Peak Gradient 21.8 mmHg AV Mean Velocity 164.3 cm/s AV Mean Gradient 12.5 mmHg AV Velocity Time Integral 40.0 cm LVOT Peak Velocity 138.7 cm/s LVOT Peak Gradient 7.7 mmHg MV Area PHT 2.7 cm??? Mitral E Point Velocity 68.0 cm/s Mitral A Point Velocity 88.9 cm/s Mitral E to A Ratio 0.8 MV Deceleration Time 281.4 ms TR Peak Velocity 214.2 cm/s TR Peak Gradient 18.4 mmHg Right Ventricular Systolic Press 23.4 mmHg FINDINGS Left Ventricle Severely increased left ventricular wall thickness. Normal left ventricular systolic function with no obvious regional wall motion abnormalities. Left ventricular ejection fraction is estimated at 55 %. Right Ventricle Normal right ventricular size and function. Right Atrium Normal right atrial size. Left Atrium Left atrium not well visualized. Mitral Valve Structurally normal mitral valve. Mild mitral annular calcification. No mitral stenosis. Trace to mild mitral regurgitation. Aortic Valve S/P TAVR. Normally functioning bioprosthetic aortic valve without stenosis with a peak velocity of 233 m/s, peak gradient 22 mmHg, mean gradient 13 mmHg. Trace aortic regurgitation. Tricuspid Valve Structurally normal tricuspid valve. Mild tricuspid regurgitation. Pulmonic Valve Trace pulmonic regurgitation. Pericardium No pericardial effusion. Aorta Normal size aortic root and proximal ascending aorta. CONCLUSIONS Normal left ventricular dimension and systolic function Concentric left ventricular hypertrophy Transcatheter aortic valve seems to be functioning normally was mild AI only No evidence of pericardial effusion Previewed by: Dr. Marty Reis MD (Electronically Signed) Final Date: 04 April 2022 12:51
== END 2022-04-03 11:17 | disposition home or self-care (01) | DRG 267 ==
LOC: 2ORMAIN 05:48 → 2SICU 10:13
PROVIDERS: ADMIT Internal Medicine; ATTEND Internal Medicine
PROC: 02RF38Z Replacement of Aortic Valve with Zooplastic Tissue, Percutaneous Approach (ICD-10-PCS; principal; 2022-04-02 08:00)
PROC: X2A5312 Cerebral Embolic Filtration, Dual Filter in Innominate Artery and Left Common Carotid Artery, Percutaneous Approach, New Technology Group 2 (ICD-10-PCS; principal; 2022-04-02 08:00)
PROC: B41D1ZZ Fluoroscopy of Aorta and Bilateral Lower Extremity Arteries using Low Osmolar Contrast (ICD-10-PCS; 2022-04-02 08:00)
PROC: B24BZZ4 Ultrasonography of Heart with Aorta, Transesophageal (ICD-10-PCS; 2022-04-02 08:00)
DX: Q23.1 Congenital insufficiency of aortic valve (principal); I25.810 Atherosclerosis of coronary artery bypass graft(s) without angina pectoris; I50.32 Chronic diastolic (congestive) heart failure; Z00.6 Encounter for examination for normal comparison and control in clinical research program; E11.9 Type 2 diabetes mellitus without complications; M19.90 Unspecified osteoarthritis, unspecified site; I65.23 Occlusion and stenosis of bilateral carotid arteries; M54.9 Dorsalgia, unspecified; Z87.891 Personal history of nicotine dependence; G89.29 Other chronic pain; F41.1 Generalized anxiety disorder; G47.33 Obstructive sleep apnea (adult) (pediatric); E78.5 Hyperlipidemia, unspecified; I11.0 Hypertensive heart disease with heart failure; I25.10 Atherosclerotic heart disease of native coronary artery without angina pectoris; I71.2 Thoracic aortic aneurysm, without rupture; Z79.82 Long term (current) use of aspirin; Z79.84 Long term (current) use of oral hypoglycemic drugs; Z79.899 Other long term (current) drug therapy; Z82.49 Family history of ischemic heart disease and other diseases of the circulatory system; Z87.828 Personal history of other (healed) physical injury and trauma
CPT/HCPCS: 33210; 33361; 71045; 80053; 82330; 83735; 85025; 85610; 85730; 86850; 86900; 86901; 86920; 93306; 93312; 93320; 93325

== ENCOUNTER → 2022-07-21 | Outpatient (CLI) | payer MEDICARE ==
--- NOTE | 2022-07-22 04:07 | MR ---
EXAMINATION TYPE: MR shoulder RT wo con DATE OF EXAM: 07/21/2022 COMPARISON: None HISTORY: Right shoulder pain for 9 months due to slip and fall on ice. Multiplanar multiecho imaging of the right shoulder with no contrast. The biceps tendon is intact. Subscapularis tendon is intact. Glenoid estela appear intact. There is thickening and increased signal in the supraspinatus tendon at the greater tuberosity of the humerus. There is full-thickness tear near the attachment on the greater tuberosity. There is increa sed fluid signal in the subdeltoid bursa. There are small shoulder joint effusion. Humeral head is intact. No fracture. No evidence of fracture of the scapula. There is significant hyp ertrophic spurring at the AC joint with subacromial impingement anteriorly. The infraspinatus tendon appears intact. IMPRESSION: Full-thickness tear of the supraspinatus tendon near the attachment on the greater tuberosity of the humerus. Thickening and edema in the supraspinatus tendon. No retraction. Shoulder joint effusion and subdeltoid effusion. Moderate spurring at the AC joint with increased fluid signal and some anterior subacromial impingement. No fracture.
== END | disposition home or self-care (01) ==
LOC: RADMRIMAIN 19:28
PROVIDERS: ATTEND Internal Medicine
DX: M75.111 Incomplete rotator cuff tear or rupture of right shoulder, not specified as traumatic (principal); M25.411 Effusion, right shoulder

== ENCOUNTER → 2022-07-23 | Outpatient (CLI) | payer MEDICARE ==
[2022-07-23 16:18] LABS: African American GFR (CKD) 101.2 (60.0-200.0); Anion Gap 10.9 mmol/L (10.00-18.00); Blood Urea Nitrogen 16.8 mg/dL (9.0-27.0); Carbon Dioxide 26.3 mmol/L (20.0-27.5); Non-African American GFR(CKD) 87.3 (60.0-200.0); Potassium 4.9 mmol/L (3.5-5.5)
== END | disposition home or self-care (01) ==
LOC: LABWHC1 10:07
PROVIDERS: ATTEND Internal Medicine Interventional Cardiology
DX: I10 Essential (primary) hypertension (principal)
CPT/HCPCS: 36415; 80051; 82565; 84520

== ENCOUNTER → 2022-10-20 | Outpatient (CLI) | payer MEDICARE ==
--- NOTE | 2022-10-21 09:36 | US ---
EXAMINATION TYPE: US thyroid st tissue head/neck DATE OF EXAM: 10/20/2022 COMPARISON: 11/19/2020 CLINICAL HISTORY: 67-year-old male he 04.1, E04.1 nontoxic single thyroid nodule. Follow up nodule. Not on thyroid meds. Technique: Multiple sonographic images of the thyroid gland are obtained. FINDINGS: GLAND SIZE: Right Lobe: 4.4 x 1.9 x 1.7 cm Overall Parenchyma: heterogenous Left Lobe: 4.7 x 2.0 x 1.6 cm Overall Parenchyma: heterogeneous Isthmus Thickness: 0.2 cm NODULES RIGHT: # of nodules measured on right: 0 LEFT: # of nodules measured on left: 1 1. 1.0 X 0.7 x 0.6 cm, mid mid, solid or almost completely solid, heterogeneous, mixed echogenicity , TR 4 nodule, which is wider than tall, with ill-defined margins, without echogenic foci. Prior size: 1.1 x 1.0 x 0.8 cm Bilateral neck scanned, no evidence of lymphadenopathy. IMPRESSION: Solid, heterogeneous TR4 nodule left mid pole relatively unchanged to slightly smaller at 10 x 7 mm ( versus 11 x 10 mm, previously).
== END | disposition home or self-care (01) ==
LOC: RADUSWWP 15:45
PROVIDERS: ATTEND Internal Medicine Endocrinology, Diabetes & Metabolism
DX: E04.1 Nontoxic single thyroid nodule (principal)
CPT/HCPCS: 76536

== ENCOUNTER → 2022-10-24 | Outpatient (CLI) | payer MEDICARE ==
[2022-10-24 16:10] LABS: T4, Free (Free Thyroxine) 1.3 ng/dL (0.800-1.800)
== END | disposition home or self-care (01) ==
LOC: LABWHC1 08:26
PROVIDERS: ATTEND Internal Medicine Endocrinology, Diabetes & Metabolism
DX: E04.1 Nontoxic single thyroid nodule (principal)
CPT/HCPCS: 36415; 84439; 84443

== ENCOUNTER → 2022-12-24 | Outpatient (CLI) | payer MEDICARE ==
--- NOTE | 2022-12-24 17:12 | P.SLEEP ---
History of Present Illness DATE: 12/24/2022 CONSULTATION/NEW PATIENT EVALUATION HISTORY OF PRESENT ILLNESS/SLEEP-WAKE EVALUATION: 67-year-old old gentleman had been evaluated in the sleep center for obstructive sleep apnea hypopnea syndrome. I so patient in our sleep center in 2006. At that time polysomnogram showed severe sleep apnea with apnea-hypopnea index 75 and respiration on control with CPAP at the pressure 9 cm of water. Patient continued to use his CPAP equipment every night for the whole night. I checked CPAP unit CPAP pressure is 8 cm of water usage is 100% of nights, average 8.9 hours per night. Leak is 18 L/m. Apnea-hypopnea index is 3.0 which is in normal range. CPAP unit is old. There is indication that the motor live expectancy was exceeded. SLEEP SCHEDULE: Usually sleep schedule from 8 PM to 4 AM. FALLING ASLEEP: Sometimes patient has difficulties with the falling asleep, has TV set and bedroom. DURING SLEEP: Patient usually sleeps on the back position and while using machine may wake up from sleep up to 4 times. No history of hypnogogical hallucinations, sleep paralysis, or cataplexy. DURING THE DAY/WAKE STATE: Patient may have episodes of tiredness, but [place] sleepiness scale is 0, which is perfect. Patient doesn't take naps. PAST MEDICAL HISTORY: Hypertension, diabetes mellitus, hyperlipidemia, anxiety. PAST SURGICAL HISTORY: UPPP, back surgery, hours to cough replacement, left shoulder surgery. MEDICATIONS: Lisinopril 10 mg twice a day, Trazodone 150 mg once a day, metoprolol 25 mg once a day, rosuvastatin 20 mg once a day, alprazolam once at night, metformin 1000 mg twice a day. SOCIAL HISTORY: Negative for smoking or using alcohol. REVIEW OF SYSTEMS: Awakenings from sleep. No fevers. No double vision. No recent chest pain. No shortness of breath. No abdominal pain. No bleeding episodes. No blood in urine. No seizure episodes. PHYSICAL EXAMINATION: GENERAL: A pleasant patient without any distress. VITAL SIGNS: BP 125/63, HR 60, RR 16, weight 184 pounds, height 5 foot 7 inches, body mass index 28.8. HEENT: PERRLA, EOMI. Evaluation of oropharynx showed tongue protrudes midline, low position of soft palate Mallampati 4. NECK: Supple. No JVD. Thyroid is not palpable. 17 inches in circumference. LUNGS: Clear to percussion and to auscultation. Good air exchange. No wheezing or rhonchi. HEART: S1, S2 regular. No murmurs, gallops or rubs. ABDOMEN: Soft and nontender. Bowel sounds are present. No organomegaly appreciated. EXTREMITIES: No clubbing or cyanosis. [employer]: Awake, alert, and oriented x3. Cranial nerves 2 to 7 intact. There is no fasciculation or atrophy noted. No focal deficits observed. ASSESSMENT: 1. Severe obstructive sleep apnea hypopnea syndrome since 2006. Patient continued to use CPAP equipment every night, demonstrated great compliance. CPAP unit is old. Motor life expectancy was exceeded. Extremely low position of soft palate, wide neck 17 inches in circumference. 2. Hypertension. 3. Diabetes mellitus. 4. Hyperlipidemia. 5 anxiety. 6 . Status post UPPP. 7. Status post back surgery. 8. Status post left shoulder surgery. 9 . Patient is preparing for right shoulder surgery in December. 10. Status post aortic valve replacement. PLAN: 1. Prescription to replace CPAP unit to AutoPAP with pressure 6-11 centimeters of water with all necessary CPAP supplies. 2. Follow-up visit after patient will get new CPAP unit to include clinical response on treatment, compliance with treatment and make any necessary adjustments. 3. Preferable position during sleep on the side. 4. No driving if patient feels any sleepiness. Patient is aware of civil and criminal liability for unsafe driving. 5. Sleep hygiene with regular sleep time for at least 7.5-8 hours. 6. Watching weight. Thank you very much for referring this patient for consultation. Sincerely, Julius Berger MD, PhD, FAASM. Diplomat of [place] [employer], Sleep Medicine Board by [employer] [employer] [employer] Account Receivable Clerk of [facility] Past Medical History Past Medical History: Coronary Artery Disease (CAD), Diabetes Mellitus, Hyperlipidemia, Hypertension, Memory Impairment, Osteoarthritis (OA), Sleep Apnea/CPAP/BIPAP Additional Past Medical History / Comment(s): uses CPAP. HX CLOSED HEAD INJURY and leg injury tore -2009 History of Any Multi-Drug Resistant Organisms: None Reported Past Surgical History: Back Surgery, Coronary Bypass/CABG, Heart Catheterization, Hernia Repair, Orthopedic Surgery, Tonsillectomy Additional Past Surgical History / Comment(s): 5- HERNIA SX, back surg. x2. FATTY TUMOR REMOVED FROM CHEST. LT ROTATOR CUFF REPAIR. LT LEG TENDON REATTACHMENT. CABG-10/21/2013-quad bypass. BILAT CATARACTS REMOVED. COLONOSCOPY. EDG Past Anesthesia/Blood Transfusion Reactions: No Reported Reaction Smoking Status: Former smoker - Past Family History Mother Family Medical History: Coronary Artery Disease (CAD) Father Family Medical History: Cancer Additional Family Medical History / Comment(s): skin Medications and Allergies Home Medications Medication Instructions Recorded Confirmed Type ALPRAZolam [Xanax] 1 mg PO Q8HR PRN 06/19/15 04/02/22 History Meclizine [Antivert] 12.5 mg PO BID PRN 06/19/15 03/25/22 History Metoprolol Tartrate [Lopressor] 25 mg PO BID 06/19/15 04/02/22 History buPROPion HCL [Wellbutrin SR] 150 mg PO DAILY 06/19/15 04/02/22 History lisinopriL [Zestril] 2.5 mg PO DAILY 06/19/15 04/02/22 History traZODone HCL [Oleptro ER] 150 mg PO HS 06/19/15 04/02/22 History Aspirin [Adult Low Dose Aspirin EC] 162 mg PO DAILY 12/05/19 04/02/22 History metFORMIN HCL [Glucophage] 1,000 mg PO BID 12/05/19 04/02/22 History HYDROcodone/APAP 10-325MG [[place] 1 tab PO Q4-6H PRN 02/13/22 04/02/22 History 10-325] Rosuvastatin [Crestor] 20 mg PO HS 02/13/22 04/02/22 History Acetaminophen Tab [Tylenol] 650 mg PO Q4HR PRN tab 04/03/22 Rx Clopidogrel [Plavix] 75 mg PO DAILY #30 tab 04/03/22 Rx Docusate Sodium [Dok] 100 mg PO DAILY PRN #30 capsule 04/03/22 Rx Allergies Allergy/AdvReac Type Severity Reaction Status Date / Time No Known Allergies Allergy Verified 04/02/22 06:46 Sleep Note - Sleep Note Sleep Note: Temperature: Pulse Rate: Respiratory Rate: Blood Pressure: SpO2: Height: Weight: BMI: Neck Circumference:
== END ==
LOC: SLEEP 15:54
PROVIDERS: ATTEND Internal Medicine
DX: G47.33 Obstructive sleep apnea (adult) (pediatric) (principal); Z99.89 Dependence on other enabling machines and devices; I10 Essential (primary) hypertension; E78.5 Hyperlipidemia, unspecified; E11.9 Type 2 diabetes mellitus without complications; F41.9 Anxiety disorder, unspecified; Z95.4 Presence of other heart-valve replacement; Z96.611 Presence of right artificial shoulder joint; Z96.612 Presence of left artificial shoulder joint; Z98.890 Other specified postprocedural states; Z79.899 Other long term (current) drug therapy; Z79.84 Long term (current) use of oral hypoglycemic drugs; Z79.82 Long term (current) use of aspirin; Z87.891 Personal history of nicotine dependence
CPT/HCPCS: 99211

== ENCOUNTER → 2023-01-27 | Outpatient (CLI) | payer MEDICARE ==
[2023-01-28 02:22] LABS: African American GFR (CKD) 90.5 (60.0-200.0); Anion Gap 13.3 mmol/L (10.00-18.00); BUN/Creat Ratio 23.4 Ratio (12.00-20.00); Blood Urea Nitrogen 23.4 mg/dL (9.0-27.0); Calcium 9.8 mg/dL (8.7-10.3); Carbon Dioxide 24.7 mmol/L (20.0-27.5); Non-African American GFR(CKD) 78.1 (60.0-200.0); Potassium 4.4 mmol/L (3.5-5.5)
[2023-01-28 02:29] LABS: HCT 45.2 % (39.6-50.0); MCHC 33.2 g/dL (32.0-37.0); MCV 87.4 fL (80.0-97.0); Mean Platelet Volume 9.9 fL (9.5-12.2); NRBC Per 100 WBC 0.1 /100 WBCS (0.0-0.0); Platelet Count 157 X 10*3/uL (140-440); RBC 5.17 X 10*6/uL (4.40-5.60); RDW 12.9 % (11.5-14.5); WBC 15.06 X 10*3/uL (4.50-10.00)
[2023-01-28 08:36] LABS: Basophils # (M) 0 X 10*3/uL (0.00-0.10); Eosinophils # (M) 0.15 X 10*3/uL (0.04-0.35); Lymphocytes # (M) 11.45 X 10*3/uL (0.90-5.00); Neutrophils # (M) 2.86 X 10*3/uL (2.00-8.90); Neutrophils % (M) 19 %; RBC Morphology NORMAL; Smudge Cells PRESENT
== END | disposition home or self-care (01) ==
LOC: LABPAT 12:41
PROVIDERS: ATTEND Orthopaedic Surgery
DX: Z01.812 Encounter for preprocedural laboratory examination (principal); M75.41 Impingement syndrome of right shoulder
CPT/HCPCS: 80048; 85025

== ENCOUNTER → 2023-02-06 | Outpatient (CLI) | payer MEDICARE ==
[2023-02-06 15:25] LABS: HCT 43.4 % (39.6-50.0); HGB 14.8 g/dL (13.0-17.0); MCH 29.1 pg (27.0-32.0); MCHC 34.1 g/dL (32.0-37.0); MCV 85.3 fL (80.0-97.0); NRBC Per 100 WBC 0 /100 WBCS (0.0-0.0); Platelet Count 136 X 10*3/uL (140-440); RBC 5.09 X 10*6/uL (4.40-5.60); RDW 12.7 % (11.5-14.5)
[2023-02-06 16:32] LABS: Basophils # (A) 0.04 X 10*3/uL (0.00-0.10); Basophils % (A) 0.3 %; Eosinophils % (A) 1.3 %; Immature Grans, Automated 0.1 %; Lymphocytes % (A) 74.4 %; Monocytes # (A) 0.52 X 10*3/uL (0.20-1.00); Monocytes % (A) 3.3 %; Neutrophils # (A) 3.22 X 10*3/uL (1.80-7.70); Neutrophils % (A) 20.6 %
== END | disposition home or self-care (01) ==
LOC: LABWHC1 09:09
PROVIDERS: ATTEND Orthopaedic Surgery
DX: Z01.812 Encounter for preprocedural laboratory examination (principal); D72.829 Elevated white blood cell count, unspecified
CPT/HCPCS: 36415; 85025

== ENCOUNTER 2023-02-10 10:31 | Day surgery (SDC) | payer MEDICARE ==
[2023-02-05 15:39] VITALS: BMI 27.8
--- NOTE | 2023-02-09 08:38 | P.HPOR ---
History of Present Illness H&P Date: 02/09/23 Chief Complaint: Right shoulder pain The patient's a 67-year-old [id number]-[id number] retired gentleman who presents with persistent/progressive right shoulder pain after a fall in October 2021. He's had multiple falls since then. He's having pain with attempted overhead u se. He is also having night symptoms. He's tried therapy in addition to medications without much relief. Review of Systems As per HPI Past Medical History Past Medical History: Coronary Artery Disease (CAD), Diabetes Mellitus, Hyperlipidemia, Hypertension, Memory Impairment, Osteoarthritis (OA), Sleep Apnea/CPAP/BIPAP Additional Past Medical History / Comment(s): uses CPAP. HX CLOSED HEAD INJURY and leg injury tore -2008 History of Any Multi-Drug Resistant Organisms: None Reported Past Surgical History: Back Surgery, Coronary Bypass/CABG, Heart Catheterization, Hernia Repair, Orthopedic Surgery, Tonsillectomy Additional Past Surgical History / Comment(s): 5- HERNIA SX, back surg. x2. FATTY TUMOR REMOVED FROM CHEST. LT ROTATOR CUFF REPAIR. LT LEG TENDON REATTACHMENT. CABG-10/21/2013-quad bypass. COLONOSCOPY. BILAT CATARACTS REMOVED WITH LENS IMPLANT Past Anesthesia/Blood Transfusion Reactions: No Reported Reaction Smoking Status: Former smoker - Past Family History Mother Family Medical History: Coronary Artery Disease (CAD) Father Family Medical History: Cancer Additional Family Medical History / Comment(s): skin Medications and Allergies Home Medications Medication Instructions Recorded Confirmed Type ALPRAZolam [Xanax] 1 mg PO Q8HR PRN 06/19/15 02/05/23 History Meclizine [Antivert] 12.5 mg PO BID PRN 06/19/15 02/05/23 History Metoprolol Tartrate [Lopressor] 25 mg PO BID 06/19/15 02/05/23 History buPROPion HCL [Wellbutrin SR] 150 mg PO DAILY 06/19/15 02/05/23 History traZODone HCL [Oleptro ER] 150 mg PO HS 06/19/15 02/05/23 History Aspirin [Adult Low Dose Aspirin EC] 162 mg PO DAILY 12/05/19 02/05/23 History metFORMIN HCL [Glucophage] 1,000 mg PO BID 12/05/19 02/05/23 History HYDROcodone/APAP 10-325MG [[place] 1 tab PO Q4-6H PRN 02/13/22 02/05/23 History 10-325] Rosuvastatin [Crestor] 20 mg PO HS 02/13/22 02/05/23 History Acetaminophen Tab [Tylenol] 650 mg PO Q4HR PRN tab 04/03/22 02/05/23 Rx lisinopriL [Zestril] 10 mg PO DAILY 02/05/23 02/05/23 History Allergies Allergy/AdvReac Type Severity Reaction Status Date / Time No Known Allergies Allergy Verified 02/05/23 15:20 Physical Examination - Shoulder right Tenderness with palpation: anterior Pain: with abduction, with forward flexion ROM: forward flexion: 140 degrees ROM: internal rotation: low thoracic ROM: external rotation: 40 degrees Crepitus with motion: Yes Strength: abduction: 4/5 Strength: external rotation: 5/5 Tests: internal impingement tests: positive, external impingment tests: positive Results The patient is a well-developed well-nourished male proximal 5 foot 7, 180 pounds of mesomorphic Kc. HEENT exam is nonfocal, neck is supple. He's tender about the right shoulder anterior subacromial space. Garza, Neer sign are positive. Speed test is positive. His distal neurovascular appears intact right upper extremity. - Diagnostic results Shoulder MRI: image reviewed (Right shoulder MRI is reviewed and shows evidence of a full-thickness tear involving the supraspinatus with minimal retraction.) Assessment and Plan Assessment: Symptomatic right rotator cuff tear/impingement Right proximal bicipital tendinosis History of heart disease Plan: I talked the patient was guarding his condition all treatment options. At this point he is quite symptomatic having both pain and weakness after this previous injury despite conservative measures. After thorough discussion opts to proceed with surgery. We'll plan to proceed with right shoulder arthroscopic evaluation with probable subacromial decompression, rotator cuff repair, in addition to possible biceps tenotomy versus tenodesis.
[~2023-02-10 10:31] MED LIST: DEXAMETHASONE SOD PHOSPHATE 4 MG/ML 1 ML VIAL IV ONE; HYDROmorphone 0.5 MG/0.5 ML SYRINGE IVP PRN; LACTATED RINGERS 1,000 ML IV SCH; LIDOCAINE 1% (10MG/ML) FOR IV START INTRADERMA PRN; MIDAZOLAM 2 MG/2 ML VIAL IV PRN; ONDANSETRON 4 MG/2 ML VIAL IVP ONE
[2023-02-10 11:12] LABS: Glucose,Whole Blood 104 mg/dL (70-110)
[2023-02-10 11:16] VITALS: TEMP 97.6
[2023-02-10] MEDS ORDERED: ONDANSETRON 4 MG/2 ML VIAL ONE (11:17)
[2023-02-10 11:22] LABS: Basophils # (A) 0.1 k/uL (0-0.2); Basophils % (A) 1 %; Eosinophils # (A) 0.2 k/uL (0-0.7); Eosinophils % (A) 1 %; HCT 45.4 % (39.0-53.0); HGB 15.5 gm/dL (13.0-17.5); Lymphocytes # (A) 10.7 k/uL (1.0-4.8); Lymphocytes % (A) 72 %; MCH 29.6 pg (25.0-35.0); MCHC 34.2 g/dL (31.0-37.0); MCV 86.5 fL (80.0-100.0); Mean Platelet Volume 7.7; Monocytes # (A) 0.4 k/uL (0-1.0); Monocytes % (A) 3 %; Neutrophils % (A) 20 %; Platelet Count 139 k/uL (150-450); RBC 5.25 m/uL (4.30-5.90); RDW 13.1 % (11.5-15.5); WBC 14.8 k/uL (3.8-10.6)
[2023-02-10] MEDS ORDERED: MIDAZOLAM 2 MG/2 ML VIAL IVP ONE (11:42)
[2023-02-10] MEDS ORDERED: fentaNYL (PF) 50 MCG/ML 2 ML AMP IV ONE (11:42)
[2023-02-10 11:46] LABS: ALT 25 U/L (4-49); AST 25 U/L (17-59); African American GFR (CKD) >90 (>60 ml/min/1.73 sqM); Albumin 4.5 g/dL (3.5-5.0); Alkaline Phosphatase 45 U/L (38-126); Anion Gap 8 mmol/L; Blood Urea Nitrogen 12 mg/dL (9-20); Carbon Dioxide 27 mmol/L (22-30); Chloride 106 mmol/L (98-107); Glucose 108 mg/dL (74-99); Non-African American GFR(CKD) >90 (>60 ml/min/1.73 sqM); Sodium 141 mmol/L (137-145); Total Bilirubin 0.8 mg/dL (0.2-1.3); Total Protein 6.8 g/dL (6.3-8.2)
--- NOTE | 2023-02-10 11:54 | P.ANPRN ---
Procedure Note - Anesthesia - Nerve Block Performed Right Interscalene Time Out Performed: Yes (11:41) Date of Procedure: 02/10/23 Procedure Start Time: : Procedure Stop Time: :46 Location of Patient: PreOp Indication: Acute Post-Operative Pain, Requested by Surgeon (Dr Campos) Sedation Type: Sedate with meaningful contact maintained Preparation: Sterile Prep Position: Supine Catheter: None Needle Types: Pajunk Needle Gauge: Other (see comment) (22g) Ultrasound used to visualize needle placement: No Ultrasound used to observe medication spread: No Injectate: 0.5% Ropivacaine (see comment for volume) (20cc + Decadron 4mg) Blood Aspirated: No Pain Paresthesia on Injection Noted: No Resistance on Injection: Normal Image Stored and Saved: Yes Events: Uneventful and Well Tolerated
[2023-02-10] MEDS ORDERED: ePHEDrine 50 MG/ML 1 ML VIAL ONE (12:54)
[2023-02-10] MEDS ORDERED: fentaNYL (PF) 50 MCG/ML 2 ML AMP ONE (12:54)
[2023-02-10] MEDS ORDERED: PHENYLEPHRINE-0.9% NACL SYG 1,000 MCG/10 ML SYRINGE ONE (12:54)
[2023-02-10] MEDS ORDERED: ROPIVACAINE 5 MG/ML 30 ML VIAL ONE (12:54)
[2023-02-10] MEDS ORDERED: MIDAZOLAM 2 MG/2 ML VIAL ONE (12:54)
[2023-02-10] MEDS ORDERED: PROPOFOL 10 MG/ML 20 ML VIAL IV ONE (12:54)
[2023-02-10] MEDS ORDERED: LACTATED RINGERS 1,000 ML IV ONE (12:54)
[2023-02-10] MEDS ORDERED: DEXAMETHASONE SOD PHOSPHATE 4 MG/ML 1 ML VIAL ONE (12:54)
[2023-02-10] MEDS ORDERED: LIDOCAINE 2% INJ 20 MG/ML (2 ML VIAL) ONE (12:54)
[2023-02-10] MEDS ORDERED: SUCCINYLCHOLINE CHLORIDE 200 MG/10 ML VIAL IV ONE (12:54)
[2023-02-10] MEDS ORDERED: EPINEPHrine (PF) 1 ML in SODIUM CHLORIDE 0.9% IRRIGATIO 3,000 ML IRRIGATION ONE ×8 (12:58)
[2023-02-10 13:35] LABS: RBC Morphology Normal
--- NOTE | 2023-02-10 14:53 | P.OP ---
Date of Procedure: 02/10/23 Preoperative Diagnosis: Right shoulder impingement/rotator cuff tear Postoperative Diagnosis: 1 cm rotator cuff tear involving the supraspinatus, high-grade partial-thickness tear interarticular portion the biceps, acromioclavicular joint arthritis Procedure(s) Performed: Right shoulder arthroscopic subacromial decompression/biceps tenotomy/rotator cuff repair/distal clavicular resection Implants: Arthrex 4.75 mm swivel lock anchor 2 Anesthesia: MARCIAL regional Surgeon: Federico Campos [place]on Waxing Machine Operator #1: Jose Jordan Estimated Blood Loss (ml): 10 Pathology: none sent Condition: stable Disposition: PACU Indications for Procedure: The patient's a 67-year-old male who presents with progressive right shoulder pain after previous injury despite conservative measures. A discussion of the risks and benefits of operative intervention versus continued conservative measures was made with patient. He opted to proceed with surgery. Operative risks to include infection, neurovascular injury, development of blood clots, possible tendon rerupture, possible postoperative stiffness and need for subsequent procedures was discussed. Operative Findings: As below Description of Procedure: The patient was brought to the operating room, and after induction of general anesthesia was placed in a beachchair position. A preoperative interscalene block was placed for postoperative analgesia. I examined the right shoulder. There was no gross block to passive motion or gross glenohumeral instability. The right upper extremity was prepped and draped in normal fashion. The bony outlines the acromion, distal clavicle, and coracoid process were outlined with a skin marker. The glenohumeral joint was inflated with 50 mL of saline utilizing a spinal needle from posterior approach. A posterior portal was made through a 5 mm skin incision 1 cm medial and inferior to the posterior lateral border time. A blunt trocar was used to easily into the joint. Diagnostic arthroscopy was performed. An anterior portal was made just lateral to the coracoid process entering the joint above the subscapularis tendon. The subscapularis tendon appeared to be intact. Anterior labrum was intact. The inferior recess was inspected. The posterior labrum was intact. There was a high-grade partial-thickness tear of the long head of the biceps involving interarticular portion. It was elected to proceed with release at this point. This was released from the superior labrum with electrocautery and was allowed to retract to the bicipital groove. On inspection the rotator cuff, a full- thickness tear involving anterior aspect the supraspinatus was noted. The posterior portion of the rotator cuff appeared to be intact. The arthroscope was placed into the subacromial space. A lateral portal was made 2 centimeters inferior to the anterior lateral border of the acromion. The soft tissue on the undersurface of the acromion was debrided with a motorized shaver and electrocautery clearly defining the anterior medial and lateral borders as well as the distal clavicle. An anterior inferior acromioplasty was performed with a motorized venecia starting anterolateral, then extending this posteriorly, then extending this medially. I converted to a flat acromion and this was verified in the posterior and lateral viewing portals. There was significant chondrocalcinosis involving the before meals joint and impingement by the distal clavicle in the subacromial space. The distal 4 mm of the clavicle was resected to a motorized bur. Attention was then paid towards the rotator cuff. The edges were debrided with a motorized shaver. The greater tuberosity was lightly decorticating with a shaver down to a bleeding bony surface. An accessory superior lateral portal was made just off the posterior lateral edge of the acromion for viewing. An additional superolateral portal was made off the lateral edge of the acromion for anchor placement. A 4.5 mm swivel lock anchor loaded with fiber tape was then placed just off the articular surface with the appropriate starting awl. Good purchase was obtained. These fiber tapes were then passed the rotator cuff with a scorpion suture passer. The central suture was also passed for additional fixation. A lateral row was created utilizing the 2 tapes and 2 sutures. A 4.75 mm swivel lock anchor was placed laterally. Good purchase was obtained. Final arthroscopic view showed adequate compression at the footprint. The arthroscope was then removed. The portals were closed with simple 3-0 nylon sutures. A sterile dressing was applied in addition to an abductor brace. The patient was then awoken from general anesthesia and transferred to recovery room in good condition. Blood loss was estimated at 10 mL. No complications were incurred. Sponge and needle counts were correct in the case. Jose MCARTHUR assisted and the major components of the case to include arm positioning, anchor placement, and rotator cuff repair.
[2023-02-10 15:22] LABS: Glucose,Whole Blood 144 mg/dL (70-110)
[2023-02-10 15:33] VITALS: RESP 20
[2023-02-10 16:58] VITALS: BP 144/80
[2023-02-10 16:59] VITALS: PULSE 76
== END 2023-02-10 16:45 | disposition home or self-care (01) ==
LOC: OR 10:31
PROVIDERS: ATTEND Orthopaedic Surgery
DX: M75.121 Complete rotator cuff tear or rupture of right shoulder, not specified as traumatic (principal); S46.111A Strain of muscle, fascia and tendon of long head of biceps, right arm, initial encounter; M75.41 Impingement syndrome of right shoulder; M11.211 Other chondrocalcinosis, right shoulder; G89.18 Other acute postprocedural pain; W19.XXXA Unspecified fall, initial encounter; Z91.81 History of falling; I25.10 Atherosclerotic heart disease of native coronary artery without angina pectoris; I10 Essential (primary) hypertension; E78.5 Hyperlipidemia, unspecified; E11.9 Type 2 diabetes mellitus without complications; F12.90 Cannabis use, unspecified, uncomplicated; G47.33 Obstructive sleep apnea (adult) (pediatric); Z99.89 Dependence on other enabling machines and devices; Z87.820 Personal history of traumatic brain injury; M19.90 Unspecified osteoarthritis, unspecified site; Z98.890 Other specified postprocedural states; Z87.891 Personal history of nicotine dependence; Z79.82 Long term (current) use of aspirin; Z79.84 Long term (current) use of oral hypoglycemic drugs
CPT/HCPCS: 29827; 29824; 29826; 64415; 80053; 85025; C1713 ×2; C1894; J2250; J0330; J1100; J0690; J2405; J0171; J3010; J2795; J2370; J2704; J2001

== ENCOUNTER → 2023-04-01 | Outpatient (CLI) | payer MEDICARE ==
--- NOTE | 2023-04-01 16:56 | P.PN ---
Subjective DATE: 04/01/2023 FOLLOW UP VISIT. Patient with obstructive sleep apnea hypopnea syndrome return to sleep center for follow-up visit. Information from previous visit have been reviewed. Patient is using PAP equipment every night for the whole night, getting PAP supplies in time. The patient does not have significant problems with the mask, PAP unit and humidification. [place] sleepiness scale is 0. I checked information from PAP unit. PAP unit pressure 8 cm H2O. Usage is 90 % for more then 4 hours, average 9 hours per night. Leak is 25 l/m, which is in acceptable range. Apnea Hypopnea Index is 2.3, which is normal. MEDICATIONS:1. Lisinopril 10 mg twice a day 2. Trazodone 150 mg once a day 3. Metoprolol 25 mg once a day 4., Rosuvastatin 20 mg once a day 5. Metformin 1000 mg twice a day 6. Alprazolam once at night During physical exam: GENERAL: A pleasant patient without any distress. VITAL SIGNS: BP 107/70, HR 67, RR 16, weight 177.0, temperature 98.2, oxygen saturation at room air 96 % . HEENT: PERRLA, EOMI.low position of soft palate, Mallapati 4 . NECK: Supple. No JVD. LUNGS: Clear to percussion and to auscultation. Good air exchange. No wheezing or rhonchi. HEART: S1, S2 regular. ABDOMEN: Soft and nontender.[] EXTREMITIES: No clubbing or cyanosis. 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 No focal deficit. Impressions: 1. Obstructive sleep apnea-hypopnea syndrome. Patient demonstrated great compliance with treatment, benefiting from treatment. 2. Hypertension. 3. Diabetes mellitus. 4. History of anxiety. 5. Hyperlipidemia. 6. Status post UPPP. 7. Status post back surgery. 8. Status post aortic valve replacement. Plan: 1. Continue using PAP equipment every night for the whole night. 2. To change air filter at least 1-2 times per month. 3. PAP unit should stay lower then position of the head. 4. Advised patient to remove all remaining water from humidifier canister daily and make it dry after each usage. Refill canister with fresh distilled water before each usage. 5. Sleep hygiene with regular time in bed for at least 8 hours. 6. Precautions related to driving. No driving if feel any sleepiness. 7. I will maintain prescription for PAP supplies including mask, tube, filters. 8. Follow up visit in 6 months or earlier if patient has any problems. 9. Watching weight. Thank you very much for allowing me to participate in the management of your patient. Julius Berger MD, PhD, FAASM. Diplomat of [place] [employer], Sleep Medicine Board by [place] [employer] Director Of [facility] [place] [facility] [place]
== END ==
LOC: 3 N SLEEP 16:23
PROVIDERS: ATTEND Internal Medicine
DX: G47.33 Obstructive sleep apnea (adult) (pediatric) (principal); E11.9 Type 2 diabetes mellitus without complications; I10 Essential (primary) hypertension; F41.9 Anxiety disorder, unspecified; E78.5 Hyperlipidemia, unspecified; Z98.890 Other specified postprocedural states; Z79.84 Long term (current) use of oral hypoglycemic drugs; Z79.899 Other long term (current) drug therapy; Z95.2 Presence of prosthetic heart valve; Z99.89 Dependence on other enabling machines and devices; Z87.891 Personal history of nicotine dependence
CPT/HCPCS: 99212

== ENCOUNTER → 2023-06-15 | Outpatient (CLI) | payer MEDICARE ==
[2023-06-15 14:36] LABS: Chol/HDL Ratio 2.41 Ratio; LDL Cholesterol,Calculated 47.5 mg/dL (0.0-131.0)
== END | disposition home or self-care (01) ==
LOC: LABWHC1 08:21
PROVIDERS: ATTEND Internal Medicine Interventional Cardiology
DX: I35.1 Nonrheumatic aortic (valve) insufficiency (principal); E78.2 Mixed hyperlipidemia
CPT/HCPCS: 36415; 80061

== ENCOUNTER 2023-10-16 09:37 | Day surgery (SDC) | payer MEDICARE ==
[~2023-10-16 09:37] MED LIST changes: -DEXAMETHASONE SOD PHOSPHATE 4 MG/ML 1 ML VIAL IV ONE; -HYDROmorphone 0.5 MG/0.5 ML SYRINGE IVP PRN; -MIDAZOLAM 2 MG/2 ML VIAL IV PRN; -ONDANSETRON 4 MG/2 ML VIAL IVP ONE
[2023-10-16 10:06] VITALS: TEMP 97
[2023-10-16 10:10] LABS: Glucose,Whole Blood 104 mg/dL (70-110)
[2023-10-16] MEDS ORDERED: PROPOFOL 10 MG/ML 20 ML VIAL IV ONE (10:39)
[2023-10-16] MEDS ORDERED: LIDOCAINE 1% INJ 10MG/ML (20 ML MDV) ONE (10:39)
--- NOTE | 2023-10-16 11:09 | P.PCN ---
Date of Procedure: 10/16/23 Procedure(s) Performed: BRIEF HISTORY: Patient is a 68-year-old pleasant white male scheduled for an elective colonoscopy as a part of evaluation of prior history of colon polyps. Last colonoscopy was 9 years ago. PROCEDURE PERFORMED: Colonoscopy with biopsy. PREOPERATIVE DIAGNOSIS: History of colon polyps. IV sedation per Anesthesia. PROCEDURE: After informed consent was obtained, the patient, was brought into the endoscopy unit. IV sedation was administered by Anesthesia under continuous monitoring. Digital rectal examination was normal. Initially the Olympus CF-160 flexible video colonoscope was then inserted in the rectum, gradually advanced into the cecum without any difficulty. Careful examination was performed as the scope was gradually being withdrawn. Ileocecal valve and the appendiceal orifice were visualized and appeared normal. Prep was excellent. Mucosa of the cecum, ascending colon, transverse colon, descending colon, normal. In the sigmoid: There was a 3 mm polyp that was removed by cold biopsy. Scattered sigmoid diverticulosis seen. Rest of the sigmoid colon, and rectum appeared normal. Retroflexion was performed in the rectum and no lesions were seen. The patient tolerated the procedure well. IMPRESSION: 3 mm; my polyp status post cold biopsy Scattered sigmoid diverticulosis RECOMMENDATIONS: Findings of this examination were discussed with the patient as his family. He was advised to follow with the biopsy results and have a repeat colonoscopy in 10 years..
[2023-10-16 11:20] VITALS: RESP 16
[2023-10-16 11:44] VITALS: BP 108/62; PULSE 78
== END 2023-10-16 11:46 | disposition home or self-care (01) ==
LOC: ORWHC2ENDO 09:37
PROVIDERS: ATTEND Internal Medicine Gastroenterology
DX: Z12.11 Encounter for screening for malignant neoplasm of colon (principal); K57.30 Diverticulosis of large intestine without perforation or abscess without bleeding; K63.5 Polyp of colon; I25.10 Atherosclerotic heart disease of native coronary artery without angina pectoris; I10 Essential (primary) hypertension; E78.5 Hyperlipidemia, unspecified; G47.33 Obstructive sleep apnea (adult) (pediatric); E11.9 Type 2 diabetes mellitus without complications; F41.9 Anxiety disorder, unspecified; M19.90 Unspecified osteoarthritis, unspecified site; Z79.82 Long term (current) use of aspirin; Z79.84 Long term (current) use of oral hypoglycemic drugs; Z79.899 Other long term (current) drug therapy; Z86.010 Personal history of colon polyps
CPT/HCPCS: 88305; 45380; J2001; J2704

== ENCOUNTER → 2023-10-29 | Outpatient (CLI) | payer MEDICARE ==
--- NOTE | 2023-10-29 16:30 | P.PN ---
Subjective DATE: 10/29/2023 FOLLOW UP VISIT. Patient with obstructive sleep apnea hypopnea syndrome return to sleep center for follow-up visit. Information from previous visit have been reviewed. Patient is using PAP equipment every night for the whole night, getting PAP supplies in time. The patient does not have significant problems with the mask, PAP unit and humidification. [place] sleepiness scale is 0. I checked information from PAP unit. PAP unit pressure 8 cm H2O. Usage is 100 % for more then 4 hours, average 9.2 hours per night. Leak is 22 l/m, which is in acceptable range. Apnea Hypopnea Index is 1.7, which is normal. MEDICATIONS:1. lisinopril 10 mg once a day 2. . Trazodone 150 mg once a day 3. metoprolol 25 mg twice a day 4. Crestor 20 mg once a day 5. Metformin 1000 mg once a day During physical exam: GENERAL: A pleasant patient without any distress. VITAL SIGNS: BP 127/72 HR 63 RR 16, weight 192.0, temperature 98.2, oxygen saturation at room air 95 % . HEENT: PERRLA, EOMI.low position of soft palate, Mallapati 4. NECK: Supple. No JVD. LUNGS: Clear to percussion and to auscultation. Good air exchange. No wheezing or rhonchi. HEART: S1, S2 regular. ABDOMEN: Soft and nontender.[ EXTREMITIES: No clubbing or cyanosis. 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 No focal deficit. Impressions: 1. Obstructive sleep apnea-hypopnea syndrome. Patient demonstrated great compliance with treatment, benefiting from treatment. 2. Diabetes mellitus. 3. Hypertension. 4. History of anxiety. 5. Hyperlipidemia. 6. Status post UPPP. 7. Status post aortic valve replacement. 8. Status post back surgery. Plan: 1. Continue using PAP equipment every night for the whole night. 2. To change air filter at least 1-2 times per month. 3. PAP unit should stay lower then position of the head. 4. Advised patient to remove all remaining water from humidifier canister daily and make it dry after each usage. Refill canister with fresh distilled water before each usage. 5. Sleep hygiene with regular time in bed for at least 8 hours. 6. Precautions related to driving. No driving if feel any sleepiness. 7. I will maintain prescription for PAP supplies including mask, tube, filters. 8. Follow up visit in 6 months or earlier if patient has any problems. 9. Watching weight. Thank you very much for allowing me to participate in the management of your patient. Julius Berger MD, PhD, FAASM. Diplomat of [place] [employer], Sleep Medicine Board by [place] [employer]per [facility] [place] [place]
== END ==
LOC: 3 N SLEEP 14:54
PROVIDERS: ATTEND Internal Medicine
DX: G47.33 Obstructive sleep apnea (adult) (pediatric) (principal); E11.9 Type 2 diabetes mellitus without complications; I10 Essential (primary) hypertension; E78.5 Hyperlipidemia, unspecified; F12.90 Cannabis use, unspecified, uncomplicated; F41.9 Anxiety disorder, unspecified; Z79.84 Long term (current) use of oral hypoglycemic drugs; Z79.899 Other long term (current) drug therapy; Z98.890 Other specified postprocedural states; Z95.2 Presence of prosthetic heart valve; Z99.89 Dependence on other enabling machines and devices; Z79.82 Long term (current) use of aspirin; Z87.891 Personal history of nicotine dependence
CPT/HCPCS: 99212

== ENCOUNTER → 2024-01-01 | Outpatient (CLI) | payer MEDICARE ==
--- NOTE | 2024-01-01 15:46 | CA ---
Transthoracic Echo Report Name: Pedro Church Age: 68 Gender: M : 1955 Exam Date: 01/01/2024 11:49 Exam Location: [facility] Ht (in): 67 Wt (lb): 186 Ordering Physician: Keron Zuleta MD ([id number]) Attending/Referring Phys: Rosita Vazquez [facility] Media Analytics Manager Elena Pederson RDCS Procedure CPT: Indications: I71.2 thoracic aortic aneurysm Cardiac Hx: Technical Quality: Fair Contrast 1: Total Dose (mL): Contrast 2: Total Dose (mL): MEASUREMENTS (Male / Female) Normal Values 2D ECHO LV Diastolic Diameter PLAX 4.2 cm 4.2 - 5.9 / 3.9 - 5.3 cm LV Systolic Diameter PLAX 2.8 cm IVS Diastolic Thickness 1.6 cm 0.6 - 1.0 / 0.6 - 0.9 cm LVPW Diastolic Thickness 1.5 cm 0.6 - 1.0 / 0.6 - 0.9 cm LV Relative Wall Thickness 0.7 RV Internal Dim ED PLAX 3.9 cm LVOT Diameter 1.8 cm LA Volume 56.6 cm??? 18 - 58 / 22 - 52 cm??? LA Volume Index 28.0 cm???/m??? 16 - 28 cm???/m??? M-MODE Aortic Root Diameter MM 3.3 cm LA Systolic Diameter MM 4.7 cm LA Ao Ratio MM 1.4 AV Cusp Separation MM 1.5 cm DOPPLER AV Peak Velocity 268.8 cm/s AV Peak Gradient 28.9 mmHg AV Mean Velocity 164.2 cm/s AV Mean Gradient 13.1 mmHg AV Velocity Time Integral 52.6 cm LVOT Peak Velocity 82.8 cm/s LVOT Peak Gradient 2.7 mmHg LVOT Velocity Time Integral 21.4 cm LVOT Stroke Volume 53.7 cm??? LVOT Stroke Volume Index 27.4 ml/m??? LVOT Cardiac Index 1541.2 cm???/min???m??? AV Area Cont Eq vti 1.0 cm??? AV Area Cont Eq pk 0.8 cm??? MV Area PHT 2.5 cm??? Mitral E Point Velocity 82.3 cm/s Mitral A Point Velocity 103.6 cm/s Mitral E to A Ratio 0.8 MV Deceleration Time 308.9 ms MV E' Velocity 6.9 cm/s Mitral E to MV E' Ratio 12.0 TR Peak Velocity 234.0 cm/s TR Peak Gradient 21.9 mmHg Right Ventricular Systolic Press 26.9 mmHg FINDINGS Left Ventricle Moderately increased left ventricular wall thickness. Left ventricular cavity size normal. Abnormal (paradoxical) septal motion consistent with postoperative state. No obvious regional wall motion abnormalities. Left ventricular ejection fraction is estimated at 55 %. Right Ventricle Right ventricular dilatation. Right ventricular systolic pressure within normal limits. Right Atrium Normal right atrial size. Left Atrium Normal left atrial size. Mitral Valve Structurally normal mitral valve. Mild mitral annular calcification. Mild mitral regurgitation. Aortic Valve Normally functioning bioprosthetic aortic valve without stenosis with a peak velocity of 2.7 m/s, peak gradient 29 mmHg, mean gradient 13 mmHg, and estimated aortic valve area of 1 cm???. Tricuspid Valve Structurally normal tricuspid valve. Mild tricuspid regurgitation. Pulmonic Valve Structurally normal pulmonic valve. Mild pulmonic regurgitation. Pericardium No pericardial effusion. Aorta Normal size aortic root and proximal ascending aorta. CONCLUSIONS Normal left ventricular EF 55% Moderate increased left ventricular wall thickness RVSP 27 Mild mitral regurgitation Normally functioning bioprosthetic aortic valve Mild tricuspid regurgitation No pericardial effusion Previewed by: Dr. Jayce Machado DO (Electronically Signed) Final Date: 01 January 2024 15:45
== END | disposition home or self-care (01) ==
LOC: RADECHMAIN 11:14
PROVIDERS: ATTEND Internal Medicine Interventional Cardiology
DX: I71.20 Thoracic aortic aneurysm, without rupture, unspecified (principal); I08.1 Rheumatic disorders of both mitral and tricuspid valves; Z95.3 Presence of xenogenic heart valve
CPT/HCPCS: 93306

== ENCOUNTER 2024-01-27 12:55 | Emergency (ER) | payer MEDICARE ==
[2024-01-27 13:24] VITALS: RESP 18
[2024-01-27] MEDS: HYDROmorphone 1 MG/ML 1 ML SYRINGE IM STA (14:18)
--- NOTE | 2024-01-27 14:23 | ED ---
Lower Extremity Injury HPI - General Chief Complaint: Extremity Injury, Lower Stated Complaint: Injury to left foot Time Seen by Provider: 01/27/24 13:20 Source: patient, RN notes reviewed Mode of arrival: ambulatory Limitations: no limitations - History of Present Illness Initial Comments: 68-year-old male presents emergency department chief complaint of left foot injury. Patient states he was moving a large [place] the [place] and states that it fell down onto his toes. He states he has significant pain in his first and second digit along with bruising and swelling. Patient had some paresthesias. Patient denies any other associated symptoms. - Related Data Home Medications Medication Instructions Recorded Confirmed ALPRAZolam [Xanax] 1 mg PO Q8HR PRN 06/19/15 10/16/23 Metoprolol Tartrate [Lopressor] 25 mg PO BID 06/19/15 10/16/23 buPROPion HCL [Wellbutrin SR] 150 mg PO DAILY 06/19/15 10/16/23 traZODone HCL [Oleptro ER] 150 mg PO HS 06/19/15 10/16/23 Aspirin [Adult Low Dose Aspirin EC] 81 mg PO DAILY 12/05/19 10/16/23 metFORMIN HCL [Glucophage] 1,000 mg PO DAILY 12/05/19 10/16/23 HYDROcodone/APAP 10-325MG [[place] 1 tab PO Q4-6H PRN 02/13/22 10/16/23 10-325] Rosuvastatin [Crestor] 20 mg PO HS 02/13/22 10/16/23 lisinopriL [Zestril] 10 mg PO BID 02/05/23 10/16/23 Tirzepatide [Mounjaro] 5 mg SQ SA 10/08/23 10/16/23 Allergies Allergy/AdvReac Type Severity Reaction Status Date / Time No Known Allergies Allergy Verified 01/27/24 13:17 Review of Systems ROS Statement: Those systems with pertinent positive or pertinent negative responses have been documented in the HPI. ROS Other: All systems not noted in ROS Statement are negative. Past Medical History Past Medical History: Coronary Artery Disease (CAD), Diabetes Mellitus, Hyperlipidemia, Hypertension, Memory Impairment, Osteoarthritis (OA), Sleep Apnea/CPAP/BIPAP Additional Past Medical History / Comment(s): uses CPAP. HX CLOSED HEAD INJURY and leg injury tore -2009 History of Any Multi-Drug Resistant Organisms: None Reported Past Surgical History: Back Surgery, Coronary Bypass/CABG, Heart Catheterization, Hernia Repair, Orthopedic Surgery, Tonsillectomy Additional Past Surgical History / Comment(s): 5- HERNIA SX, back surg. x2. FATTY TUMOR REMOVED FROM CHEST. LT ROTATOR CUFF REPAIR. LT LEG TENDON REATTACHMENT. CABG-10/21/2013-quad bypass. COLONOSCOPY. BILAT CATARACTS REMOVED WITH LENS IMPLANT Past Anesthesia/Blood Transfusion Reactions: No Reported Reaction Past Psychological History: Anxiety Smoking Status: Former smoker - Past Family History Mother Family Medical History: Coronary Artery Disease (CAD) Father Family Medical History: Cancer Additional Family Medical History / Comment(s): skin General Exam Limitations: no limitations General appearance: alert, in no apparent distress Head exam: Present: atraumatic, normocephalic, normal inspection Neck exam: Present: normal inspection, full ROM. Absent: tenderness, meningismus, lymphadenopathy Respiratory exam: Present: normal lung sounds bilaterally. Absent: respiratory distress, wheezes, rales, rhonchi, stridor Cardiovascular Exam: Present: regular rate, normal rhythm, normal heart sounds. Absent: systolic murmur, diastolic murmur, rubs, gallop, clicks Extremities exam: Present: other (Left foot first and second digit shows ecchymosis and tenderness to palpation no proximal foot tenderness) Course Vital Signs 01/27/24 13:15 Temperature 97.8 F Pulse Rate 61 Respiratory 18 Rate Blood Pressure 122/73 O2 Sat by Pulse 96 Oximetry Medical Decision Making - Medical Decision Making Was pt. sent in by a medical professional or institution (, PA, ASSOCIATE RELATIONS SPECIALIST, urgent care, hospital, or care home...) When possible be specific @ -No Did you speak to anyone other than the patient for history (EMS, parent, family, police, friend...)? What history was obtained from this source @ -No Did you review nursing and triage notes (agree or disagree)? Why? @ -I reviewed and agree with nursing and triage notes Were old charts reviewed (outside hosp., previous admission, EMS record, old EKG, old radiological studies, urgent care reports/EKG's, care home records)? Report findings @ -No old charts were reviewed Differential Diagnosis (chest pain, altered mental status, abdominal pain women, abdominal pain men, vaginal bleeding, weakness, fever, dyspnea, syncope, headache, dizziness, GI bleed, back pain, seizure, CVA, palpatations, mental health, musculoskeletal)? @ -Toe fracture, toe contusion EKG interpreted by me (3pts min.). @ -None X-rays interpreted by me (1pt min.). @ -X-ray left foot shows multidirectional toe fracture CT interpreted by me (1pt min.). @ -None done U/S interpreted by me (1pt. min.). @ -None done What testing was considered but not performed or refused? (CT, X-rays, U/S, labs)? Why? @ -None What meds were considered but not given or refused? Why? @ -None Did you discuss the management of the patient with other professionals (professionals i.e. , PA, ASSOCIATE RELATIONS SPECIALIST, lab, RT, psych nurse, certified social workers in health care, sleeve tailor, teacher, systems support officer, case management manager)? Give summary @ -No Was smoking cessation discussed for >3mins.? @ -No Was critical care preformed (if so, how long)? @ -No Were there social determinants of health that impacted care today? How? (Homelessness, low income, unemployed, alcoholism, drug addiction, transportation, low edu. Level, literacy, decrease access to med. care, fdc, rehab)? @ -No Was there de-escalation of care discussed even if they declined (Discuss DNR or withdrawal of care, Hospice)? DNR status @ -No What co-morbidities impacted this encounter? (DM, HTN, Smoking, COPD, CAD, Cancer, CVA, ARF, Chemo, Hep., AIDS, mental health diagnosis, sleep apnea, morbid obesity)? @ -None Was patient admitted / discharged? Hospital course, mention meds given and route, prescriptions, significant lab abnormalities, going to OR and other pertinent info. @ -Discharged patient has toe fracture patient provided Ortho shoe patient declines analgesics will be discharged in stable condition. Undiagnosed new problem with uncertain prognosis? @ -No Drug Therapy requiring intensive monitoring for toxicity (Heparin, Nitro, Insulin, Cardizem)? @ -No Were any procedures done? @ -No Diagnosis/symptom? @ -Left toe fracture Acute, or Chronic, or Acute on Chronic? @ -Acute Uncomplicated (without systemic symptoms) or Complicated (systemic symptoms)? @ -Uncomplicated Side effects of treatment? @ -No Exacerbation, Progression, or Severe Exacerbation? @ -No Poses a threat to life or bodily function? How? (Chest pain, [place], [place], pneumonia, PE, COPD, DKA, ARF, appy, cholecystitis, CVA, Diverticulitis, Homicidal, Suicidal, threat to staff... and all critical care pts) @ -No Disposition Clinical Impression: Toe fracture, left Disposition: HOME SELF-CARE Condition: Stable Instructions (If sedation given, give patient instructions): Toe Fracture (ED) Additional Instructions: Please return to the Emergency Department if symptoms worsen or any other concerns. Is patient prescribed a controlled substance at d/c from ED?: No Referrals: None,Stated [Primary Care Provider] - 1-2 days Time of Disposition: 15:00
--- NOTE | 2024-01-27 14:50 | XR ---
EXAMINATION TYPE: XR foot complete LT DATE OF EXAM: 01/27/2024 2:32 PM CLINICAL INDICATION:Male, 68 years old with history of pain; PHH COMPARISON: None TECHNIQUE: XR foot complete LT examined in the AP, oblique, and lateral projections. FINDINGS/IMPRESSION: 1. Multidirectional suspected fractures through the first digit distal phalanx with minimal displace ment. 2. Soft tissue swelling of the first digit. 3. No additional fractures. 4. Mild multifocal degeneration changes with osteophyte reformation and joint space narrowing.
[2024-01-27 16:05] VITALS: BP 131/70; PULSE 63; TEMP 98
== END 2024-01-27 15:24 | disposition home or self-care (01) ==
LOC: EC 12:55
DX: S92.422A Displaced fracture of distal phalanx of left great toe, initial encounter for closed fracture (principal); Z87.891 Personal history of nicotine dependence; W07.XXXA Fall from chair, initial encounter
CPT/HCPCS: 73630; 99283; 96372; J1170

== ENCOUNTER → 2024-06-14 | Outpatient (CLI) | payer MEDICARE ==
[2024-06-14 18:05] LABS: ALT 21 U/L (10-49); AST 21 U/L (14-35); Albumin 4.8 g/dL (3.8-4.9); Albumin/Globulin Ratio 2.53 Ratio (1.60-3.17); Alkaline Phosphatase 58 U/L (41-126); Blood Urea Nitrogen 14.5 mg/dL (9.0-27.0); Calcium 9.7 mg/dL (8.7-10.3); Carbon Dioxide 17.8 mmol/L (21.6-31.8); Chloride 105 mmol/L (96-109); Chol/HDL Ratio 3.06 Ratio; Globulin 1.9 g/dL (1.6-3.3); Glucose 124 mg/dL (70-110); LDL Cholesterol,Calculated 56.4 mg/dL (0.0-131.0); Potassium 4.6 mmol/L (3.5-5.5); Sodium 140 mmol/L (135-145); Total Bilirubin 0.4 mg/dL (0.3-1.2); Total Protein 6.7 g/dL (6.2-8.2)
== END | disposition home or self-care (01) ==
LOC: LABWHC1 07:55
PROVIDERS: ATTEND Internal Medicine Interventional Cardiology
DX: E78.2 Mixed hyperlipidemia (principal)
CPT/HCPCS: 36415; 80053; 80061

== ENCOUNTER → 2024-12-01 | Outpatient (CLI) | payer MEDICARE ==
[2024-12-01 10:50] LABS: HCT 41.9 % (39.6-50.0); HGB 14.1 g/dL (13.0-17.0); MCH 28.8 pg (27.0-32.0); MCHC 33.7 g/dL (32.0-37.0); MCV 85.7 FL (80.0-97.0); Mean Platelet Volume 9.6 FL (9.5-12.2); NRBC Per 100 WBC 0 X 10*3/uL (0.00-0.01); Platelet Count 137 X 10*3/uL (140-440); RBC 4.89 X 10*6/uL (4.40-5.60); RDW 12.7 % (11.5-14.5); WBC 27.99 X 10*3/uL (4.50-10.00)
[2024-12-01 11:15] LABS: ALT 24 U/L (10-49); AST 17 U/L (14-35); Albumin 4.5 g/dL (3.8-4.9); Albumin/Globulin Ratio 2.37 Ratio (1.60-3.17); Alkaline Phosphatase 55 U/L (41-126); BUN/Creat Ratio 21.36 Ratio (12.00-20.00); Blood Urea Nitrogen 23.5 mg/dL (9.0-27.0); Calcium 9.4 mg/dL (8.7-10.3); Carbon Dioxide 24.1 mmol/L (21.6-31.8); Chloride 103 mmol/L (96-109); Chol/HDL Ratio 2.73 Ratio; Globulin 1.9 g/dL (1.6-3.3); Glucose 153 mg/dL (70-110); LDL Cholesterol,Calculated 42.2 mg/dL (0.0-131.0); Potassium 4.5 mmol/L (3.5-5.5); Prostate Specific Antigen 0.47 ng/mL (0.000-4.500); Sodium 140 mmol/L (135-145); T4, Free (Free Thyroxine) 1.08 ng/dL (0.80-1.80); Total Bilirubin 0.4 mg/dL (0.3-1.2); Total Protein 6.4 g/dL (6.2-8.2)
[2024-12-01 12:12] LABS: Basophils # (M) 0.28 X 10*3/uL (0.00-0.10); Eosinophils # (M) 0 X 10*3/uL (0.04-0.35); Lymphocytes # (M) 21.83 X 10*3/uL (0.90-5.00); Monocytes # (M) 0.56 X 10*3/uL (0.20-1.00); Neutrophils # (M) 5.32 X 10*3/uL (1.80-7.70); Neutrophils % (M) 19 %
== END | disposition home or self-care (01) ==
LOC: LABWHC1 07:00
PROVIDERS: ATTEND Nurse Practitioner Family
DX: Z12.5 Encounter for screening for malignant neoplasm of prostate (principal); I10 Essential (primary) hypertension; E78.5 Hyperlipidemia, unspecified; E11.9 Type 2 diabetes mellitus without complications; F41.8 Other specified anxiety disorders; R79.9 Abnormal finding of blood chemistry, unspecified
CPT/HCPCS: 36415; 80053; 80061; 82607; 84153; 84439; 84443; 85025

== ENCOUNTER → 2024-12-15 | Outpatient (CLI) | payer MEDICARE ==
[2024-12-15 11:02] LABS: ALT 22 U/L (10-49); Chol/HDL Ratio 2.72 Ratio; LDL Cholesterol,Calculated 45.8 mg/dL (0.0-131.0); VLDL Calculation 19.32 mg/dL (5.00-40.00)
[2024-12-15 11:03] LABS: AST 19 U/L (14-35)
== END | disposition home or self-care (01) ==
LOC: LABWHC1 06:59
PROVIDERS: ATTEND Internal Medicine Interventional Cardiology
DX: E78.2 Mixed hyperlipidemia (principal)
CPT/HCPCS: 36415; 80061; 84450; 84460

== ENCOUNTER 2025-01-25 18:02 | Emergency (ER) | payer MEDICARE ==
[2025-01-25 18:09] VITALS: TEMP 97.9
[2025-01-25] MEDS: NITROGLYCERIN SL TABS 0.4 MG TAB SUBLINGUAL STA ×4 (18:44→20:06)
[2025-01-25] MEDS: SODIUM CHLORIDE 0.9% 500 ML 500 ML IV STA (18:44)
[2025-01-25 18:45] LABS: Basophils # (A) 0.07 10*3/uL (0.00-0.10); Basophils % (A) 0.2 %; Eosinophils % (A) 0.3 %; HCT 41.7 % (39.6-50.0); HGB 14.6 g/dL (13.0-17.0); Lymphocytes % (A) 79.1 %; MCH 29.2 pg (27.0-32.0); MCV 83.4 fL (80.0-97.0); Mean Platelet Volume 8.9 fL (9.5-12.2); Monocytes # (A) 0.59 10*3/uL (0.20-1.00); Neutrophils # (A) 5.49 10*3/uL (1.80-7.70); Neutrophils % (A) 18.2 %; Platelet Count 135 10*3/uL (140-440); RDW 13.3 % (11.5-14.5); WBC 30.13 10*3/uL (4.50-10.00)
[2025-01-25 19:01] LABS: ALT 25 U/L (4-49); AST 26 U/L (17-59); African American GFR (CKD) 60 (>60 ml/min/1.73 sqM); Albumin 4.9 g/dL (3.5-5.0); Alkaline Phosphatase 46 U/L (38-126); Anion Gap 13 mmol/L; Blood Urea Nitrogen 24 mg/dL (9-20); Calcium 9.8 mg/dL (8.4-10.2); Carbon Dioxide 25 mmol/L (22-30); Chloride 101 mmol/L (98-107); Glucose 111 mg/dL (74-99); Non-African American GFR(CKD) 52 (>60 ml/min/1.73 sqM); Potassium 3.6 mmol/L (3.5-5.1); Sodium 139 mmol/L (137-145); Total Bilirubin 0.7 mg/dL (0.2-1.3)
[2025-01-25 19:10] LABS: INR 0.9 (<1.2); Partial Thromboplastin Time 20.9 sec (22.0-30.0); Prothrombin Time 10.6 sec (10.0-12.5)
[2025-01-25 19:17] LABS: Lymphocytes # (A) 23.82 10*3/uL (0.90-5.00)
[2025-01-25 19:18] LABS: Appearance,Urine Clear (Clear); Bilirubin,Urine Negative (Negative); Blood,Urine Trace (Negative); Color,Urine Colorless; Glucose,Urine (UA) 4+ (Negative); Ketones,Urine Negative (Negative); Leukocyte Esterase,Urine Negative (Negative); Nitrite,Urine Negative (Negative); Protein,Urine Negative (Negative); RBC,Urine 3 /hpf (0-5); Specific Gravity,Urine 1.043 (1.001-1.035); Urobilinogen,Urine <2.0 mg/dL (<2.0); WBC,Urine 1 /hpf (0-5)
--- NOTE | 2025-01-25 19:57 | XR ---
EXAMINATION TYPE: XR chest 2V DATE OF EXAM: 01/25/2025 7:04 PM COMPARISON: Chest radiographs from 04/03/2022. CLINICAL INDICATION: Male, 69 years old with history of Chest Pain; TECHNIQUE: XR chest 2V Frontal and lateral views of the chest. FINDINGS: Lungs/Pleura: There is no evidence of pleural effusion, focal consolidation, or pneumothorax. Pulmonary vascularity: Unremarkable. Heart/mediastinum: Cardiomediastinal silhouette is unremarkable. Post aortic valve repair changes. Musculoskeletal: No acute osseous pathology. Midline sternotomy wires are noted. Other findings: None IMPRESSION: No acute cardiopulmonary disease/process. [facility], , 01/25/2025 7:55 PM
--- NOTE | 2025-01-25 20:05 | CT ---
EXAMINATION TYPE: CT noncontrast chest abdomen pelvis. CT angio thor/abd pel aorta DATE OF EXAM: 01/25/2025 7:10 PM COMPARISON: CT 03/13/2022. CLINICAL INDICATION: Male, 69 years old with history of chest pain, history of aneurysm; PHH, CP. Hx of aneurysm. TECHNIQUE: Noncontrast CT chest abdomen pelvis followed by CT angiogram chest abdomen pelvis. Multiple axial CT images of the chest, abdomen, and pelvis were obtained prior to and after the administration of IV co ntrast. 3-D reformats and maximum intensity projection format were performed on a separate workstatio n. . Contrast used:100 ml mL of Isovue 370 with IV Contrast, Oral contrast used: CT DLP: 1530.3 mGycm, Automated exposure control for dose reduction was used. FINDINGS: ARTERIAL VASCULATURE: Ascending thoracic aorta is mildly dilated up to 42 mm and the descending thora cic aorta is within normal limits for size. There is no evidence for intramural hematoma within the a ady on noncontrast imaging. Postcontrast imaging demonstrates no evidence for dissection. The major vessels of the aortic arch are patent. The major vessels of the abdominal aorta are patent. Mild athe rosclerotic changes of the thoracic aorta. PULMONARY ARTERIAL VASCULATURE: Normal caliber. No evidence of filling defect to suggest pulmonary em bolus. VENOUS SYSTEM: Unremarkable. LUNGS/ PLEURA: No focal consolidation, pneumothorax or pleural effusion. AIRWAY: Patent and unremarkable. HEART: Size within normal limits.Postsurgical changes to the aortic valve. No significant coronary ar priscilla calcifications. MEDIASTINUM: No gross evidence of adenopathy. MUSCULOSKELETAL: Mild disc degeneration changes are present throughout the thoracolumbar spine. Cabral otomy wires present. SOFT TISSUES/LYMPH NODES: Unremarkable. LOWER NECK: No significant findings. Abdomen: LIVER: Unremarkable GALLBLADDER AND BILE DUCTS: Unremarkable. PANCREAS: Unremarkable. SPLEEN: Unremarkable. ADRENAL GLANDS: Unremarkable. KIDNEYS AND URETERS: No evidence of hydronephrosis or renal calculus. The ureters are unremarkable. Peripelvic renal cyst. No follow-up recommended. PELVIS BLADDER: Unremarkable REPRODUCTIVE: Prostate is enlarged in size measuring 4.5 cm in transverse dimension. ABDOMEN & PELVIS STOMACH AND BOWEL: No evidence of bowel obstruction. . Appendix is normal. PERITONEUM/RETROPERITONEUM: No evidence of pneumoperitoneum or free fluid. MUSCULOSKELETAL: No acute osseous abnormalities LYMPH NODES: No gross evidence for lymphadenopathy. SOFT TISSUE/ABDOMINAL WALL: Bilateral fat-containing inguinal hernias. Hernia repair changes in the r ight lower inguinal region. IMPRESSION: 1. No evidence for aortic dissection, aneurysm or occlusion. No evidence for pulmonary embolus 2. Ascending thoracic aorta ectasia up to 42 mm., Unchanged from 03/13/2022. 3. Postsurgical changes to the aortic valve. 4. Multiple evidence for acute intrathoracic or intra-abdominal process. [facility], , 01/25/2025 8:02 PM
[2025-01-25] MEDS ORDERED: SODIUM CHLORIDE 0.9% 1,000 ML IV STA (20:07)
[2025-01-25 20:21] LABS: Reactive Lymphocytes Present
[2025-01-25] MEDS ORDERED: HEPARIN SODIUM 1,000 UN/ML (10ML VL) IV PRN (20:25)
[2025-01-25] MEDS ORDERED: HEPARIN SODIUM 1,000 UN/ML (10ML VL) IV ONE (20:25)
[2025-01-25] MEDS ORDERED: HEPARIN SOD,PORK IN 0.45% NACL 25,000 UNIT in 0.45% NACL 1 250ML.BAG IV SCH (20:30)
--- NOTE | 2025-01-25 20:30 | ED ---
General Adult HPI - General Chief complaint: Chest Pain Stated complaint: Chest pain Time Seen by Provider: 01/25/25 18:26 Source: patient, RN notes reviewed, old records reviewed Mode of arrival: wheelchair Limitations: no limitations - History of Present Illness Initial comments: Patient is a 69-year-old male presents emergency department complaining of chest pain. Has been ongoing throughout the day today. States he occasionally does receive chest pain but this is worse today. States it is left-sided. Describes it as sharp. Radiates through to his back. Has a history of a dilated ascending thoracic aorta. Also has a history remarkable for CAD with cardiac stents, hypertension, hyperlipidemia presents emergency department complaining of this chest pain. States [place] when it began earlier today. States is currently a 9 out of 10. Left-sided. Does endorse diaphoresis. Endorse nausea. Denies shortness of breath. Denies any obvious traumatic injury. No known palliative or provocative factors currently. Presents for further evaluation at this time. Patiently diagnosed with CLL 6 mo nths ago and is currently being monitored. Has a history of chronic leukocytosis from this over the last 6 months. - Related Data Home Medications Medication Instructions Recorded Confirmed ALPRAZolam [Xanax] 1 mg PO Q8HR PRN 06/19/15 10/16/23 Metoprolol Tartrate [Lopressor] 25 mg PO BID 06/19/15 10/16/23 buPROPion HCL [Wellbutrin SR] 150 mg PO DAILY 06/19/15 10/16/23 traZODone HCL [Oleptro ER] 150 mg PO HS 06/19/15 10/16/23 Aspirin [Adult Low Dose Aspirin EC] 81 mg PO DAILY 12/05/19 10/16/23 metFORMIN HCL [Glucophage] 1,000 mg PO DAILY 12/05/19 10/16/23 HYDROcodone/APAP 10-325MG [[place] 1 tab PO Q4-6H PRN 02/13/22 10/16/23 10-325] Rosuvastatin [Crestor] 20 mg PO HS 02/13/22 10/16/23 lisinopriL [Zestril] 10 mg PO BID 02/05/23 10/16/23 Tirzepatide [Mounjaro] 5 mg SQ SA 10/08/23 10/16/23 Allergies Allergy/AdvReac Type Severity Reaction Status Date / Time No Known Allergies Allergy Verified 01/25/25 18:08 Review of Systems ROS Statement: Those systems with pertinent positive or pertinent negative responses have been documented in the HPI. Review of Systems: CONST: Denies fever EYES: Denies blurry vision ENT: Denies nasal congestion C/V: Endorses chest pain RESP: Denies shortness of breath GI: Denies abdominal pain : Denies dysuria SKIN: Denies rash. MSK: Denies joint pain. NEURO: Denies headache ROS Other: All systems not noted in ROS Statement are negative. Past Medical History Past Medical History: Coronary Artery Disease (CAD), Cancer, Diabetes Mellitus, Hyperlipidemia, Hypertension, Memory Impairment, Osteoarthritis (OA), Sleep Apnea/CPAP/BIPAP Additional Past Medical History / Comment(s): uses CPAP. HX CLOSED HEAD INJURY and leg injury tore -2008. CLL (07/2024) History of Any Multi-Drug Resistant Organisms: None Reported Past Surgical History: Back Surgery, Coronary Bypass/CABG, Heart Catheterization, Hernia Repair, Orthopedic Surgery, Tonsillectomy Additional Past Surgical History / Comment(s): 5- HERNIA SX, back surg. x2. FATTY TUMOR REMOVED FROM CHEST. LT ROTATOR CUFF REPAIR. LT LEG TENDON REATTACHMENT. CABG-10/21/2013-quad bypass. COLONOSCOPY. BILAT CATARACTS REMOVED WITH LENS IMPLANT Past Anesthesia/Blood Transfusion Reactions: No Reported Reaction Past Psychological History: Anxiety Smoking Status: Former smoker - Past Family History Mother Family Medical History: Coronary Artery Disease (CAD) Father Family Medical History: Cancer Additional Family Medical History / Comment(s): skin General Exam - General Exam Comments Initial Comments: General: Appears in no acute distress. HEAD: Normal with no signs of head trauma. EYES: EOMI ENT: Hearing grossly intact, normal oropharynx. RESPIRATORY: Clear breath sounds bilaterally. No wheezes, rales, or rhonchi. C/V: Regular rate and rhythm. S1 and S2 auscultated, no edema, peripheral pulses 2+ and intact throughout. Chest pain is not reproducible on palpation. ABD: Abd is soft, nontender, nondistended EXT: Normal range of motion, no obvious deformity SKIN: No rashes or lesions observed on exposed skin. NEURO: Alert and oriented x 4. Limitations: no limitations Course Vital Signs 01/25/25 01/25/25 01/25/25 18:06 18:49 19:21 Temperature 97.9 F Pulse Rate 64 62 59 L Respiratory 18 19 18 Rate Blood Pressure 162/80 113/65 125/67 O2 Sat by Pulse 96 95 95 Oximetry 01/25/25 19:40 Temperature Pulse Rate 59 L Respiratory 16 Rate Blood Pressure 126/64 O2 Sat by Pulse 95 Oximetry Medical Decision Making - Medical Decision Making Was pt. sent in by a medical professional or institution (, PA, HARD TILE SETTER, urgent care, hospital, or penitentiary...) When possible be specific @ -No Did you speak to anyone other than the patient for history (EMS, parent, family, police, friend...)? What history was obtained from this source @ -No Did you review nursing and triage notes (agree or disagree)? Why? @ -I reviewed and agree with nursing and triage notes Were old charts reviewed (outside hosp., previous admission, EMS record, old EKG, old radiological studies, urgent care reports/EKG's, penitentiary records)? Report findings @ -Compared today's EKGs with EKG from March 2022 with no significant acute change. Differential Diagnosis (chest pain, altered mental status, abdominal pain women, abdominal pain men, vaginal bleeding, weakness, fever, dyspnea, syncope, headache, dizziness, GI bleed, back pain, seizure, CVA, palpatations, mental health, musculoskeletal)? @ -Differential Chest Pain: Stable Angina, Unstable Angina, STEMI, NSTEMI Aortic Dissection, Pneumothorax, Musculoskeletal, Esophageal Spasm GERD, Cholecystitis, Pancreatitis, Zoster, this is not meant to be an all-inclusive list. EKG interpreted by me (3pts min.). @ -As above X-rays interpreted by me (1pt min.). @ -Chest x-ray reveals no obvious acute cardiopulmonary process. CT interpreted by me (1pt min.). @ -CT angiogram revealed no evidence of aortic dissection or acute aortic catastrophe. Stable ascending thoracic aortic ectasia. U/S interpreted by me (1pt. min.). @ -None done What testing was considered but not performed or refused? (CT, X-rays, U/S, labs)? Why? @ -None What meds were considered but not given or refused? Why? @ -Considered heparin but patient left AGAINST MEDICAL ADVICE. Did you discuss the management of the patient with other professionals (professionals i.e. , PA, HARD TILE SETTER, lab, RT, psych nurse, social work instructor, journeyman electrician, teacher, deck officer, case operator)? Give summary @ -No Was smoking cessation discussed for >3mins.? @ -No Was critical care preformed (if so, how long)? @ -Yes, 30 minutes Were there social determinants of health that impacted care today? How? (Homel essness, low income, unemployed, alcoholism, drug addiction, transportation, low edu. Level, literacy, decrease access to med. care, assisted, rehab)? @ -No Was there de-escalation of care discussed even if they declined (Discuss DNR or withdrawal of care, Hospice)? DNR status @ -No What co-morbidities impacted this encounter? (DM, HTN, Smoking, COPD, CAD, Cancer, CVA, ARF, Chemo, Hep., AIDS, mental health diagnosis, sleep apnea, morbid obesity)? @ -CAD with multiple cardiac stents Was patient admitted / discharged? Hospital course, mention meds given and route, prescriptions, significant lab abnormalities, going to OR and other pertinent info. @ -Patient is a 69-year-old male presents emergency department complaining of chest pain. Seems to be exertional. Somewhat typically sounding. We will obtain CT angiogram of the aorta as well to evaluate for any evidence of aortic injury. Patient was in agreement this plan. Patient will given nitroglycerin tablets as well as IV fluids. EKG shows no signs of acute ischemia. Laboratory studies remarkable for leukocytosis of 30.13 in the setting of CLL. This is stable for the patient. Patient has had mild KENNETH with a BUN of 24 and creatinine of 1.39. Troponin is indeterminate at 0.016.Repeat EKG shows no dynamic changes. Patient's chest pain improved from a 9 to approximately of 3 out of 10 after 3 nitroglycerin tablets. He refuses further nitro tablets. I discussed results with the patient. He will be given aspirin 324 mg at this time as we initially held over concern for possible aortic injury. I did discuss with him admission and I would like to admit him for unstable angina on a heparin drip. Patient wants to go home and does not want to stay. He expresses understanding that leaving AGAINST MEDICAL ADVICE could result in significant morbidity mortality as well as . He would still like to go. The patient was apprised of the potential risks of leaving the hospital AGAINST MEDICAL ADVICE, including serious complications, permanent disability, and . At the time of my interview the patient, the patient was alert, oriented, and capable. Patient signed AMA form, which was witnessed and signed by nursing staff, and placed in patient's chart. I urged the patient to return to the hospital as soon as possible to complete evaluation and treatment. Undiagnosed new problem with uncertain prognosis? @ -No Drug Therapy requiring intensive monitoring for toxicity (Heparin, Nitro, Insulin, Cardizem)? @ -No Were any procedures done? @ -No Diagnosis/symptom? @ -Chest pain, unstable angina, left AGAINST MEDICAL ADVICE Acute, or Chronic, or Acute on Chronic? @ -Acute Uncomplicated (without systemic symptoms) or Complicated (systemic symptoms)? @ -Complicated Side effects of treatment? @ -No Exacerbation, Progression, or Severe Exacerbation? @ -No Poses a threat to life or bodily function? How? (Chest pain, [place], [place], pneumonia, PE, COPD, DKA, ARF, appy, cholecystitis, CVA, Diverticulitis, Homicidal, Suicidal, threat to staff... and all critical care pts) @ -Yes - Lab Data Result diagrams: 01/25/25 18:36 01/25/25 18:36 Lab Results 01/25/25 01/25/25 01/25/25 Range/Units 18:36 18:36 18:36 WBC 30.13 H (4.50-10.00) 10*3/uL RBC 5.00 (4.40-5.60) 10*6/uL Hgb 14.6 (13.0-17.0) g/dL Hct 41.7 (39.6-50.0) % MCV 83.4 (80.0-97.0) fL MCH 29.2 (27.0-32.0) pg MCHC 35.0 (32.0-37.0) g/dL Plt Count 135 L (140-440) 10*3/uL MPV 8.9 L (9.5-12.2) fL Immature Gran % (Auto) 0.2 % Neutrophils % 18.2 % Lymphocytes % 79.1 % Monocytes % 2.0 % Eosinophils % 0.3 % Basophils % 0.2 % Immature Gran # 0.06 H (0.00-0.04) 10*3/uL Neutrophils # 5.49 (1.80-7.70) 10*3/uL Lymphocytes # 23.82 H (0.90-5.00) 10*3/uL Monocytes # 0.59 (0.20-1.00) 10*3/uL Eosinophils # 0.10 (0.04-0.35) 10*3/uL Basophils # 0.07 (0.00-0.10) 10*3/uL Manual Slide Review Performed Reactive Lymphocytes Present PT 10.6 (10.0-12.5) sec INR 0.9 (<1.2) APTT 20.9 L (22.0-30.0) sec Sodium (137-145) mmol/L Potassium (3.5-5.1) mmol/L Chloride (98-107) mmol/L Carbon Dioxide (22-30) mmol/L Anion Gap mmol/L BUN (9-20) mg/dL Creatinine (0.66-1.25) mg/dL Est GFR (CKD-EPI)AfAm (>60 ml/min/1.73 sqM) Est GFR (CKD-EPI)NonAf (>60 ml/min/1.73 sqM) Glucose (74-99) mg/dL Calcium (8.4-10.2) mg/dL Magnesium (1.6-2.3) mg/dL Total Bilirubin (0.2-1.3) mg/dL AST (17-59) U/L ALT (4-49) U/L Alkaline Phosphatase (38-126) U/L Troponin I (0.000-0.034) ng/mL Total Protein (6.3-8.2) g/dL Albumin (3.5-5.0) g/dL Urine Color Colorless Urine Appearance Clear (Clear) Urine pH 6.0 (5.0-8.0) Ur Specific [place] 1.043 H (1.001-1.035) Urine Protein Negative (Negative) Urine Glucose (UA) 4+ H (Negative) Urine Ketones Negative (Negative) Urine Blood Trace H (Negative) Urine Nitrite Negative (Negative) Urine Bilirubin Negative (Negative) Urine Urobilinogen <2.0 (<2.0) mg/dL Ur Leukocyte Esterase Negative (Negative) Urine RBC 3 (0-5) /hpf Urine WBC 1 (0-5) /hpf 01/25/25 01/25/25 Range/Units 18:36 18:36 WBC (4.50-10.00) 10*3/uL RBC (4.40-5.60) 10*6/uL Hgb (13.0-17.0) g/dL Hct (39.6-50.0) % MCV (80.0-97.0) fL MCH (27.0-32.0) pg MCHC (32.0-37.0) g/dL Plt Count (140-440) 10*3/uL MPV (9.5-12.2) fL Immature Gran % (Auto) % Neutrophils % % Lymphocytes % % Monocytes % % Eosinophils % % Basophils % % Immature Gran # (0.00-0.04) 10*3/uL Neutrophils # (1.80-7.70) 10*3/uL Lymphocytes # (0.90-5.00) 10*3/uL Monocytes # (0.20-1.00) 10*3/uL Eosinophils # (0.04-0.35) 10*3/uL Basophils # (0.00-0.10) 10*3/uL Manual Slide Review Reactive Lymphocytes PT (10.0-12.5) sec INR (<1.2) APTT (22.0-30.0) sec Sodium 139 (137-145) mmol/L Potassium 3.6 (3.5-5.1) mmol/L Chloride 101 (98-107) mmol/L Carbon Dioxide 25 (22-30) mmol/L Anion Gap 13 mmol/L BUN 24 H (9-20) mg/dL Creatinine 1.39 H (0.66-1.25) mg/dL Est GFR (CKD-EPI)AfAm 60 (>60 ml/min/1.73 sqM) Est GFR (CKD-EPI)NonAf 52 (>60 ml/min/1.73 sqM) Glucose 111 H (74-99) mg/dL Calcium 9.8 (8.4-10.2) mg/dL Magnesium 2.0 (1.6-2.3) mg/dL Total Bilirubin 0.7 (0.2-1.3) mg/dL AST 26 (17-59) U/L ALT 25 (4-49) U/L Alkaline Phosphatase 46 (38-126) U/L Troponin I 0.016 (0.000-0.034) ng/mL Total Protein 7.0 (6.3-8.2) g/dL Albumin 4.9 (3.5-5.0) g/dL Urine Color Urine Appearance (Clear) Urine pH (5.0-8.0) Ur Specific [place] (1.001-1.035) Urine Protein (Negative) Urine Glucose (UA) (Negative) Urine Ketones (Negative) Urine Blood (Negative) Urine Nitrite (Negative) Urine Bilirubin (Negative) Urine Urobilinogen (<2.0) mg/dL Ur Leukocyte Esterase (Negative) Urine RBC (0-5) /hpf Urine WBC (0-5) /hpf - EKG Data -: EKG Interpreted by Me EKG Comments: 12-lead Electrocardiogram Interpretation Note EKG was reviewed and interpreted by myself. 12-lead ECG performed at 1828 is int erpreted by me as revealing normal sinus rhythm at a rate of 62 beats per minute. [place] is normal. NV interval is 214 ms, QRS duration is 85 ms, QTc is 411 ms.. There were no ST or T wave abnormalities to suggest myocardial ischemia or injury. R wave progression across the precordium was satisfactory. By my interpretation this EKG is non-diagnostic for acute ischemia 12-lead Electrocardiogram Interpretation Note EKG was reviewed and interpreted by myself. 12-lead ECG performed at 1915 is i nterpreted by me as revealing normal sinus rhythm at a rate of 60 beats per minute. [place] is normal. NV interval is 201 ms, QRS duration is 104 ms, QTc is 435 ms.. There were no ST or T wave abnormalities to suggest myocardial ischemia or injury. R wave progression across the precordium was satisfactory. By my interpretation this EKG is non-diagnostic for acute ischemia. Both EKGs compared with EKG from April 03, 2022 with no significant acute change. Critical Care Time Critical Care Time: Yes Total Critical Care Time: 30 Disposition Clinical Impression: Unstable angina, Chest pain Disposition: LEFT AGAINST MEDICAL ADVICE Condition: Undetermined Is patient prescribed a controlled substance at d/c from ED?: No Referrals: Patrick Gutierrez MD [Primary Care Provider] - 1-2 days Time of Disposition: 20:28
[2025-01-25] MEDS: ASPIRIN 81 MG PO STA (20:35)
[2025-01-25] MEDS: ACETAMINOPHEN TAB 500 MG TAB PO STA (20:36)
[2025-01-25 20:43] VITALS: BP 135/66; PULSE 62; RESP 18
[2025-01-26] MEDS ORDERED: NITROGLYCERIN OINT 1 INCH/GM PACKET TOPICAL SCH (20:10)
== END 2025-01-25 20:43 | disposition left against medical advice (07) ==
LOC: EC 18:02
DX: I20.0 Unstable angina (principal); Z86.79 Personal history of other diseases of the circulatory system; Z87.891 Personal history of nicotine dependence; Z53.29 Procedure and treatment not carried out because of patient's decision for other reasons
CPT/HCPCS: 36415; 93005; 80053; 83735; 84484; 85025; 85610; 85730; 81001; 71046; 71275; 74174; 99291; 96360; Q9967

== ENCOUNTER 2025-01-26 08:54 | Inpatient (IN) | payer MEDICARE ==
--- NOTE | 2025-01-26 09:19 | ED ---
General Adult HPI - General Chief complaint: Chest Pain Stated complaint: Chest Pain Time Seen by Provider: 01/26/25 08:56 Source: patient, family, RN notes reviewed, old records reviewed Mode of arrival: ambulatory Limitations: no limitations - History of Present Illness Initial comments: Patient is a 69-year-old male present to the emergency department with concerns with chest discomfort. Onset of symptoms was yesterday. Patient was in the emergency department yesterday and felt better and did not want to stay. Chart was reviewed. Patient states symptoms started again this morning. Discomfort feels like tightness rated 9/10. Patient does have some associated dyspnea and diaphoresis. No nausea. Symptoms do worsen with exertion. Patient does have cardiac history with previous CABG. Also previous valve repair. Patient has borderline aneurysm history, CT scan done yesterday. - Related Data Home Medications Medication Instructions Recorded Confirmed ALPRAZolam [Xanax] 1 mg PO Q8HR PRN 06/19/15 10/16/23 Metoprolol Tartrate [Lopressor] 25 mg PO BID 06/19/15 10/16/23 buPROPion HCL [Wellbutrin SR] 150 mg PO DAILY 06/19/15 10/16/23 traZODone HCL [Oleptro ER] 150 mg PO HS 06/19/15 10/16/23 Aspirin [Adult Low Dose Aspirin EC] 81 mg PO DAILY 12/05/19 10/16/23 metFORMIN HCL [Glucophage] 1,000 mg PO DAILY 12/05/19 10/16/23 HYDROcodone/APAP 10-325MG [[place] 1 tab PO Q4-6H PRN 02/13/22 10/16/23 10-325] Rosuvastatin [Crestor] 20 mg PO HS 02/13/22 10/16/23 lisinopriL [Zestril] 10 mg PO BID 02/05/23 10/16/23 Tirzepatide [Mounjaro] 5 mg SQ SA 10/08/23 10/16/23 Allergies Allergy/AdvReac Type Severity Reaction Status Date / Time No Known Allergies Allergy Verified 01/26/25 08:59 Review of Systems ROS Statement: Those systems with pertinent positive or pertinent negative responses have been documented in the HPI. ROS Other: All systems not noted in ROS Statement are negative. Constitutional: Denies: fever Eyes: Denies: eye pain ENT: Denies: ear pain Respiratory: Reports: as per HPI Cardiovascular: Reports: as per HPI, chest pain Endocrine: Denies: fatigue Gastrointestinal: Denies: abdominal pain Musculoskeletal: Denies: back pain Past Medical History Past Medical History: Coronary Artery Disease (CAD), Cancer, Diabetes Mellitus, Hyperlipidemia, Hypertension, Memory Impairment, Osteoarthritis (OA), Sleep Apnea/CPAP/BIPAP Additional Past Medical History / Comment(s): uses CPAP. HX CLOSED HEAD INJURY and leg injury tore -2008. CLL (07/2024) History of Any Multi-Drug Resistant Organisms: None Reported Past Surgical History: Back Surgery, Coronary Bypass/CABG, Heart Catheterization, Hernia Repair, Orthopedic Surgery, Tonsillectomy Additional Past Surgical History / Comment(s): 5- HERNIA SX, back surg. x2. FATTY TUMOR REMOVED FROM CHEST. LT ROTATOR CUFF REPAIR. LT LEG TENDON REATTACHMENT. CABG-10/21/2013-quad bypass. COLONOSCOPY. BILAT CATARACTS REMOVED WITH LENS IMPLANT Past Anesthesia/Blood Transfusion Reactions: No Reported Reaction Past Psychological History: Anxiety Smoking Status: Former smoker Past Alcohol Use History: None Reported Past Drug Use History: None Reported - Past Family History Mother Family Medical History: Coronary Artery Disease (CAD) Father Family Medical History: Cancer Additional Family Medical History / Comment(s): skin General Exam Limitations: no limitations General appearance: alert, in no apparent distress Head exam: Present: normocephalic Eye exam: Present: normal appearance Neck exam: Present: normal inspection Respiratory exam: Present: normal lung sounds bilaterally Cardiovascular Exam: Present: regular rate, normal rhythm Expanded Peripheral pulses: 2+: Radial (R), Radial (L), Dorsalis Pedis (R), Dorsalis Pedis (L) GI/Abdominal exam: Present: soft. Absent: tenderness Extremities exam: Present: normal inspection. Absent: pedal edema, calf tenderness Neurological exam: Present: alert Psychiatric exam: Present: normal affect, normal mood Skin exam: Present: normal color Course Vital Signs 01/26/25 01/26/25 08:57 09:33 Temperature 97.7 F Pulse Rate 57 L 57 L Respiratory 18 16 Rate Blood Pressure 136/69 102/63 O2 Sat by Pulse 97 96 Oximetry EKG Findings - EKG Results: EKG: interpreted by ERMD (Inferior Q waves with borderline ST change. T wave inversion aVL. Biphasic T wave in V6.), sinus rhythm, normal axis Medical Decision Making - Medical Decision Making Was pt. sent in by a medical professional or institution (, BLUE, AFFILIATE MARKETING SPECIALIST, urgent care, hospital, or halfway...) When possible be specific @ -No Did you speak to anyone other than the patient for history (EMS, parent, family, police, friend...)? What history was obtained from this source @ - is present helps provide additional history including patient being seen last night Did you review nursing and triage notes (agree or disagree)? Why? @ -I reviewed and agree with nursing and triage notes Were old charts reviewed (outside hosp., previous admission, EMS record, old EKG, old radiological studies, urgent care reports/EKG's, halfway records)? Report findings @ -EKG reviewed from yesterday that is different from today Differential Diagnosis (chest pain, altered mental status, abdominal pain women, abdominal pain men, vaginal bleeding, weakness, fever, dyspnea, syncope, headache, dizziness, GI bleed, back pain, seizure, CVA, palpatations, mental health, musculoskeletal)? @ -Differential Chest Pain: Stable Angina, Unstable Angina, STEMI, NSTEMI Aortic Dissection, Pneumothorax, Musculoskeletal, Esophageal Spasm GERD, Cholecystitis, Pancreatitis, Zoster, this is not meant to be an all-inclusive list. EKG interpreted by me (3pts min.). @ -As above X-rays interpreted by me (1pt min.). @ -Chest x-ray without acute abnormality, postoperative changes CT interpreted by me (1pt min.). @ -None done U/S interpreted by me (1pt. min.). @ -None done What testing was considered but not performed or refused? (CT, X-rays, U/S, labs)? Why? @ -None What meds were considered but not given or refused? Why? @ -None Did you discuss the management of the patient with other professionals (p rofessionals i.e. , BLUE, AFFILIATE MARKETING SPECIALIST, lab, RT, psych nurse, older adult social work specialist, entertainment lawyer, teacher, chief legal officer, case operator)? Give summary @ -924 Case was discussed with Dr. Moreno including EKG results and changes who will come evaluate. Case also discussed with Dr. Araya who will admit covering Dr. self Was smoking cessation discussed for >3mins.? @ -No Was critical care preformed (if so, how long)? @ -31 minutes critical care time Were there social determinants of health that impacted care today? How? (Homelessness, low income, unemployed, alcoholism, drug addiction, transportation, low edu. Level, literacy, decrease access to med. care, prison, rehab)? @ -No Was there de-escalation of care discussed even if they declined (Discuss DNR or withdrawal of care, Hospice)? DNR status @ -No What co-morbidities impacted this encounter? (DM, HTN, Smoking, COPD, CAD, Cancer, CVA, ARF, Chemo, Hep., AIDS, mental health diagnosis, sleep apnea, morbid obesity)? @ -History of cardiac disease Was patient admitted / discharged? Hospital course, mention meds given and route, prescriptions, significant lab abnormalities, going to OR and other pertinent info. @ -Patient presents with chest discomfort and EKG changes. Patient will be admitted with cardiac consult. Cardiology consulted. Admission orders written. Patient and family updated on results and plan Undiagnosed new problem with uncertain prognosis? @ -No Drug Therapy requiring intensive monitoring for toxicity (Heparin, Nitro, Insulin, Cardizem)? @ -No Were any procedures done? @ -No Diagnosis/symptom? @ -Acute coronary syndrome Acute, or Chronic, or Acute on Chronic? @ -Acute Uncomplicated (without systemic symptoms) or Complicated (systemic symptoms)? @ -Default Side effects of treatment? @ -No Exacerbation, Progression, or Severe Exacerbation? @ -No Poses a threat to life or bodily function? How? (Chest pain, [place], [place], pneumonia, PE, COPD, DKA, ARF, appy, cholecystitis, CVA, Diverticulitis, Homicidal, Suicidal, threat to staff... and all critical care pts) @ -Threat to cardiac function - Lab Data Result diagrams: 01/26/25 09:22 Lab Results 01/26/25 01/26/25 Range/Units 09:22 09:22 Sodium 140 (137-145) mmol/L Potassium 3.9 (3.5-5.1) mmol/L Chloride 105 (98-107) mmol/L Carbon Dioxide 24 (22-30) mmol/L Anion Gap 11 mmol/L BUN 28 H (9-20) mg/dL Creatinine 0.96 (0.66-1.25) mg/dL Est GFR (CKD-EPI)AfAm >90 (>60 ml/min/1.73 sqM) Est GFR (CKD-EPI)NonAf 82 (>60 ml/min/1.73 sqM) Glucose 117 H (74-99) mg/dL Calcium 9.4 (8.4-10.2) mg/dL Magnesium 2.1 (1.6-2.3) mg/dL Total Bilirubin 0.9 (0.2-1.3) mg/dL AST 25 (17-59) U/L ALT 23 (4-49) U/L Alkaline Phosphatase 44 (38-126) U/L Troponin I <0.012 (0.000-0.034) ng/mL Total Protein 6.8 (6.3-8.2) g/dL Albumin 4.6 (3.5-5.0) g/dL Critical Care Time Critical Care Time: Yes Disposition Clinical Impression: Acute coronary syndrome Disposition: ADMITTED IP TO THIS [facility] Condition: Serious Is patient prescribed a controlled substance at d/c from ED?: No Referrals: Patrick Gutierrez MD [Primary Care Provider] - 1-2 days Time of Disposition: 09:45
[2025-01-26] MEDS: ASPIRIN 81 MG PO STA (09:24)
[2025-01-26] MEDS: NITROGLYCERIN SL TABS 0.4 MG TAB SUBLINGUAL STA ×3 (09:25→09:40)
[2025-01-26] MEDS: HEPARIN SOD,PORK IN 0.45% NACL 25,000 UNIT in 0.45% NACL 1 250ML.BAG IV SCH (09:32)
[2025-01-26] MEDS: HEPARIN SODIUM 1,000 UN/ML (10ML VL) IV ONE (09:32)
--- NOTE | 2025-01-26 09:37 | XR ---
EXAMINATION TYPE: XR chest 1V portable DATE OF EXAM: 01/26/2025 9:33 AM COMPARISON: 01/25/2025 CLINICAL INDICATION: Male, 69 years old with history of chest pain FINDINGS: Median sternotomy wires with postoperative clips. Endovascular aortic valve replacement noted. Heart upper limits of normal in size. Mild interstitial density. No consolidation or pleural effusion. IMPRESSION: Post-CABG changes and previous endovascular aortic valve replacement. There is interstitial density w hich could reflect mild pulmonary vascular congestion, bronchitis, or asthma. Clinically correlate. [facility], , 01/26/2025 9:35 AM
[2025-01-26 09:46] LABS: ALT 23 U/L (4-49); AST 25 U/L (17-59); African American GFR (CKD) >90 (>60 ml/min/1.73 sqM); Albumin 4.6 g/dL (3.5-5.0); Alkaline Phosphatase 44 U/L (38-126); Anion Gap 11 mmol/L; Blood Urea Nitrogen 28 mg/dL (9-20); Calcium 9.4 mg/dL (8.4-10.2); Carbon Dioxide 24 mmol/L (22-30); Chloride 105 mmol/L (98-107); Glucose 117 mg/dL (74-99); Magnesium 2.1 mg/dL (1.6-2.3); Non-African American GFR(CKD) 82 (>60 ml/min/1.73 sqM); Potassium 3.9 mmol/L (3.5-5.1); Sodium 140 mmol/L (137-145); Total Bilirubin 0.9 mg/dL (0.2-1.3); Total Protein 6.8 g/dL (6.3-8.2)
[2025-01-26 09:52] LABS: INR 0.9 (<1.2); Prothrombin Time 10.2 sec (10.0-12.5)
[2025-01-26] MEDS: SODIUM CHLORIDE 0.9% 1,000 ML IV SCH (10:00)
[2025-01-26] MEDS: ONDANSETRON 4 MG/2 ML VIAL IVP STA (10:01)
[2025-01-26] MEDS: MORPHINE SULFATE 4 MG/ML SYRINGE IVP STA (10:01)
[2025-01-26] MEDS ORDERED: NITROGLYCERIN SL TABS 0.4 MG TAB SUBLINGUAL PRN ×2 (10:02→10:30)
[2025-01-26] MEDS: NITROGLYCERIN OINT 1 INCH/GM PACKET TOPICAL STA (10:05)
[2025-01-26 10:08] LABS: HCT 42.4 % (39.6-50.0); HGB 14.6 g/dL (13.0-17.0); MCH 28.9 pg (27.0-32.0); MCHC 34.4 g/dL (32.0-37.0); MCV 83.8 fL (80.0-97.0); Mean Platelet Volume 9.6 fL (9.5-12.2); Platelet Count 127 10*3/uL (140-440); RBC 5.06 10*6/uL (4.40-5.60); RDW 13.4 % (11.5-14.5); WBC 27.62 10*3/uL (4.50-10.00)
[2025-01-26] MEDS ORDERED: ALPRAZolam 0.5 MG TAB PO PRN (10:30)
[2025-01-26] MEDS ORDERED: ALPRAZolam 0.25 MG TAB PO PRN (10:30)
[2025-01-26 10:37] LABS: Partial Thromboplastin Time 20.9 sec (22.0-30.0)
[2025-01-26] MEDS: ASPIRIN 325 MG TAB PO STA (10:51)
[2025-01-26] MEDS: SODIUM CHLORIDE 0.9% 1,000 ML in EMPTY BAG 1 BAG IV SCH (10:53)
[2025-01-26] MEDS: ATORVASTATIN 80 MG TAB PO STA (10:53)
[2025-01-26 11:06] LABS: Lymphocytes # (M) 23.75 k/uL (1.0-4.8); Neutrophils # (M) 3.04 k/uL (1.3-7.7); Neutrophils % (M) 11 %
[2025-01-26] MEDS: NITROGLYCERIN OINT 1 INCH/GM PACKET TOPICAL SCH (11:16)
[2025-01-26 11:43] LABS: Monocytes # (M) 0.83 k/uL (0-1.0); Nucleated Red Blood Cells 0 /100 WBC (0-0); Total Cells Counted 100
[2025-01-26 11:44] LABS: Reactive Lymphocytes Present
--- NOTE | 2025-01-26 11:57 | P.CRDCN ---
History of Present Illness History of present illness: HISTORY OF PRESENT ILLNESS: This is a 69-year-old male with a past medical history significant for leukemia, coronary artery disease with previous CABG, aortic valve replacement, hyperten conner, and hyperlipidemia. Patient follows in the office with Dr. Zuleta. We have been asked to see the patient in consultation for chest pain. Patient examined at the bedside in the emergency room. Patient initially presented to the hospital yesterday with a chief complaint of chest discomfort. He states the pain started when he was outside shoveling dirt. He reports the pain radiated into his back. He presented to the ER yesterday for further evaluation. He did receive nitro yesterday with some relief of the pain. He ended up leaving the ER AGAINST MEDICAL ADVICE. He returned back to the hospital this morning with continued chest pain. He did receive nitro again today with some improvement of his pain. At the time of examination he is rating his pain 8/10. DIAGNOSTICS: - EKG reveals sinus mechanism with ST depression in lead I, aVL, and V6 - Chest xray post CABG changes and previous endovascular aortic valve replacement. Interstitial density which could reflect mild pulmonary vascular congestion, bronchitis, or asthma. - Laboratory data: WBC 27.62. Hemoglobin 14.6. Platelet count 127. Sodium 140. Potassium 3.9. BUN 28. Creatinine 0.96. Magnesium 2.1. Troponin ne gative x 1 - Current home cardiac medications include Crestor 20 mg at night, lisinopril 10 mg daily, hydrochlorothiazide 25 mg daily, metoprolol tartrate 25 mg twice a day, Farxiga 10 mg daily. - Most recent echocardiogram obtained in December 2023 revealing normal EF, mild MR, prosthetic aortic valve, mild TR - Cardiac catheterization history: January 2022 revealing patent RAYMUNDO to LAD, patent VG to D1, patent VG to RCA, severe aortic stenosis. Totally occluded saphenous vein graft to the OM REVIEW OF SYSTEMS: At the time of my exam: CONSTITUTIONAL: Denies fever or chills. HEENT: Denies blurred vision, vision changes, or eye pain. Denies hemoptysis CARDIOVASCULAR: Denies chest pain. Denies orthopnea. Denies PND. Denies palpitations RESPIRATORY: Denies shortness of breath. GASTROINTESTINAL: Denies abdominal pain. Denies nausea or vomiting. HEMATOLOGIC: Denies bleeding disorders. GENITOURINARY: Denies any blood in urine. SKIN: Denies pruitis. Denies rash. PHYSICAL EXAM: VITAL SIGNS: Reviewed. GENERAL: Well-developed in no acute distress. HEENT: Head is normocephalic. Pupils are equal, round. Sclerae anicteric. Mucous membranes of the mouth are moist. Neck supple. No JVD or thyromegaly LUNGS: Respirations even and unlabored. Lungs essentially clear to auscultation bilaterally. HEART: Regular rate and rhythm. S1 and S2 heard. Systolic murmur noted ABDOMEN: Soft. Nondistended. Nontender. EXTREMITIES: Normal range of motion. No clubbing or cyanosis. Peripheral pulses intact. No lower extremity edema NEUROLOGIC: Awake and alert. Oriented x 3. ASSESSMENT: Unstable angina Coronary artery disease with previous four-vessel CABG in 2013 History of aortic stenosis status post TAVR, March 2022 Hypertension Hyperlipidemia PLAN: Continue IV heparin Resume home cardiac medications Add Nitropaste Patient to undergo cardiac catheterization today with Dr. Zuleta Further recommendations pending patient course Nurse practitioner note has been reviewed by physician. Signing provider agrees with the documented findings, assessment, and plan of care documented by BEZEL CUTTER as a scribe. Past Medical History Past Medical History: Coronary Artery Disease (CAD), Cancer, Diabetes Mellitus, Hyperlipidemia, Hypertension, Memory Impairment, Osteoarthritis (OA), Sleep Apnea/CPAP/BIPAP Additional Past Medical History / Comment(s): uses CPAP. HX CLOSED HEAD INJURY and leg injury tore -2008. CLL (07/2024) History of Any Multi-Drug Resistant Organisms: None Reported Past Surgical History: Back Surgery, Coronary Bypass/CABG, Heart Catheterization, Hernia Repair, Orthopedic Surgery, Tonsillectomy Additional Past Surgical History / Comment(s): 5- HERNIA SX, back surg. x2. FATTY TUMOR REMOVED FROM CHEST. LT ROTATOR CUFF REPAIR. LT LEG TENDON REATTACHMENT. CABG-10/21/2013-quad bypass. COLONOSCOPY. BILAT CATARACTS REMOVED WITH LENS IMPLANT Past Anesthesia/Blood Transfusion Reactions: No Reported Reaction Past Psychological History: Anxiety Smoking Status: Former smoker Past Alcohol Use History: None Reported Past Drug Use History: None Reported - Past Family History Mother Family Medical History: Coronary Artery Disease (CAD) Father Family Medical History: Cancer Additional Family Medical History / Comment(s): skin Medications and Allergies Home Medications Medication Instructions Recorded Confirmed Type ALPRAZolam [Xanax] 1 mg PO BID PRN 06/19/15 01/26/25 History Metoprolol Tartrate [Lopressor] 25 mg PO BID 06/19/15 01/26/25 History HYDROcodone/APAP 10-325MG [[place] 1 tab PO Q6H PRN 02/13/22 01/26/25 History 10-325] Rosuvastatin [Crestor] 20 mg PO HS 02/13/22 01/26/25 History lisinopriL [Zestril] 10 mg PO DAILY 02/05/23 01/26/25 History Cyanocobalamin (Vitamin B-12) 1,000 mcg PO DAILY 01/26/25 01/26/25 History [Vitamin B-12] Dapagliflozin Propanediol [Farxiga] 10 mg PO DAILY 01/26/25 01/26/25 History Gabapentin [Neurontin] 300 mg PO BID 01/26/25 01/26/25 History Ibuprofen [Motrin] 800 mg PO TID PRN 01/26/25 01/26/25 History buPROPion XL [Wellbutrin XL] 150 mg PO DAILY 01/26/25 01/26/25 History hydroCHLOROthiazide [Hydrodiuril] 25 mg PO DAILY 01/26/25 01/26/25 History traZODone HCL 150 mg PO HS 01/26/25 01/26/25 History Allergies Allergy/AdvReac Type Severity Reaction Status Date / Time No Known Allergies Allergy Verified 01/26/25 10:32 Physical Exam Vitals: Vital Signs Temp Pulse Resp BP Pulse Ox 01/26/25 10:54 56 L 18 104/62 96 01/26/25 09:33 57 L 16 102/63 96 01/26/25 08:57 97.7 F 57 L 18 136/69 97 Intake and Output 01/25/25 01/26/25 01/26/25 22:59 06:59 14:59 Other: Weight 81.647 kg Results 01/26/25 09:22 01/26/25 09:22 Cardiac Enzymes 01/26/25 01/26/25 Range/Units 09:22 09:22 AST 25 (17-59) U/L Troponin I <0.012 (0.000-0.034) ng/mL Coagulation 01/26/25 Range/Units 09:22 PT 10.2 (10.0-12.5) sec APTT 20.9 L (22.0-30.0) sec CBC 01/26/25 Range/Units 09:22 WBC 27.62 H (4.50-10.00) 10*3/uL RBC 5.06 (4.40-5.60) 10*6/uL Hgb 14.6 (13.0-17.0) g/dL Hct 42.4 (39.6-50.0) % Plt Count 127 L (140-440) 10*3/uL Comprehensive Metabolic Panel 01/26/25 Range/Units 09:22 Sodium 140 (137-145) mmol/L Potassium 3.9 (3.5-5.1) mmol/L Chloride 105 (98-107) mmol/L Carbon Dioxide 24 (22-30) mmol/L BUN 28 H (9-20) mg/dL Creatinine 0.96 (0.66-1.25) mg/dL Glucose 117 H (74-99) mg/dL Calcium 9.4 (8.4-10.2) mg/dL AST 25 (17-59) U/L ALT 23 (4-49) U/L Alkaline Phosphatase 44 (38-126) U/L Total Protein 6.8 (6.3-8.2) g/dL Albumin 4.6 (3.5-5.0) g/dL Current Medications Generic Name Dose Route Start Last Admin Trade Name Freq PRN Reason Stop Dose Admin Alprazolam 0.25 mg 01/26/25 10:30 Alprazolam 0.25 Mg Tab PO Q6HR PRN Mild Anxiety Alprazolam 0.5 mg 01/26/25 10:30 Alprazolam 0.5 Mg Tab PO Q6HR PRN Moderate Anxiety Aspirin 81 mg 01/27/25 09:00 Aspirin 81 Mg PO DAILY ORALIA Heparin Sodium (Porcine) 0 unit 01/26/25 09:25 Heparin Sodium 1,000 Un/Ml (10ml Vl) IV PER PROTOCOL PRN Low PTT Protocol Heparin Sodium/Sodium Chloride 250 mls @ 9.798 mls/hr 01/26/25 09:30 01/26/25 09:32 25,000 unit/ Sodium Chloride IV 12 units/kg/hr .Q24H ORALIA 9.798 mls/hr Administration Protocol 12 UNITS/KG/HR Sodium Chloride 1,000 mls @ 100 mls/hr 01/26/25 10:00 01/26/25 10:00 Saline 0.9% IV 100 mls/hr .Q10H ORALIA Administration Heparin Sodium (Porcine) 10, 1,001 mls @ 999 mls/hr 01/27/25 07:00 000 unit/ Sodium Chloride IRRIGATION 01/27/25 23:00 ONCE PRN INTRA-OP Heparin Sodium (Porcine) 2,500 250.5 mls @ 250 mls/hr 01/27/25 07:00 unit/ Sodium Chloride IRRIGATION 01/27/25 23:00 ONCE PRN INTRA-OP Sodium Chloride 1,000 ml/ IV 1,000 mls @ 81.647 mls/hr 01/26/25 10:30 01/26/25 10:53 Solution IV 81.647 mls/hr .[id number] ORALIA Administration 1 ML/KG/HR Nitroglycerin 0.4 mg 01/26/25 10:02 Nitroglycerin Sl Tabs 0.4 Mg Tab SUBLINGUAL Q5M PRN Chest Pain Nitroglycerin 1 inch 01/26/25 12:00 01/26/25 11:16 Nitroglycerin Oint 1 Inch/Gm Packet TOPICAL 1 inch Q6HR ORALIA Administration Intake and Output 01/25/25 01/26/25 01/26/25 22:59 06:59 14:59 Other: Weight 81.647 kg Patient Weight 01/27/25 06:59 Weight 81.647 kg 01/26/25 09:22 01/26/25 09:22
[2025-01-26] MEDS ORDERED: ALPRAZolam 1 MG TAB PO PRN (12:07)
--- NOTE | 2025-01-26 12:09 | P.HPIM ---
History of Present Illness H&P Date: 01/26/25 69 year old M with PMH of CAD post CABG x 4, AV replacement, HTN, DM presents to the ED for chest pain that started around 11:30 AM yesterday while he was shoveling dirt. Pain is left sided, pressure like in nature. Pain is 9/10 severity. Pain associated with nausea, diaphoresis and some shortness of breath. He was evaluated in the ED. BP 136/69, HR 57, T 97.7F, RR 18, 97% on RA. CBC, Coag panel, CMP significant for WBC 27.62, Plt 127, APTT 20.9, BUN 28, glu 117. Mag 2.1. Trop < 0.012. EKG sinus bradycardia with ST depression in the inferior leads. CXR post CABG changes with AV replacement, mild interstitial density. Patient is started on heparin infusion and admitted for Cardiology evaluation. General: no distress, appears at stated age Derm: warm, dry Head: atraumatic, normocephalic, symmetric Mouth: no lip lesion, mucus membranes moist Cardiovascular: S1 S2 reg. No murmur. Lungs: Clear to auscultation bilaterally, no accessory muscle use Ext: no gross muscle atrophy, no edema, no contractures Neuro: No focal neurologic deficits. Psych: Alert and oriented. Based on my assessment of this patient, this patient meets a high complexity level of care. NSTEMI: Start heparin infusion. Monitor APTT. ASA 81 mg PO QD. Lipitor 40 mg PO QHS. Metoprolol 25 mg PO BID. Nitrostat PRN. Nitro-Bid ointment. Telemetry monitoring. Obtain Echo. Plans for cardiac cath today. Cardiology on board. Sinus bradycardia likely due to inferior wall NSTEMI. Leukocytosis: Possibly reactive? No signs of obvious infection. Monitor fever profile. HTN: HCTZ 25 mg PO QD. Lisinopril 10 mg PO QD. Metoprolol as above. DM: Farxiga 10 mg PO QD. Anxiety: Xanax 1 mg PO BID PRN. Wellbutrin XL 150 mg PO QD. Trazadone 150 mg PO QHS. CODE STATUS: FULL CODE DVT Prophylaxis: Heparin drip. GI Prophylaxis: Designated medical POA if patient is not able to make medical decisions for themselves: I have reviewed the following sap basis consultant notes: ED note. I have reviewed the results of the following tests: As above. I have ordered the following tests: As above. I have discussed the care of this patient with the following independent historian: Family at bedside. I have independently interpreted the following test below: EKG. I have discussed the management of this patient with the following physician: Past Medical History Past Medical History: Coronary Artery Disease (CAD), Cancer, Diabetes Mellitus, Hyperlipidemia, Hypertension, Memory Impairment, Osteoarthritis (OA), Sleep Apnea/CPAP/BIPAP Additional Past Medical History / Comment(s): uses CPAP. HX CLOSED HEAD INJURY and leg injury tore -2008. CLL (07/2024) History of Any Multi-Drug Resistant Organisms: None Reported Past Surgical History: Back Surgery, Coronary Bypass/CABG, Heart Catheterization, Hernia Repair, Orthopedic Surgery, Tonsillectomy Additional Past Surgical History / Comment(s): 5- HERNIA SX, back surg. x2. FATTY TUMOR REMOVED FROM CHEST. LT ROTATOR CUFF REPAIR. LT LEG TENDON RE ATTACHMENT. CABG-10/21/2013-quad bypass. COLONOSCOPY. BILAT CATARACTS REMOVED WITH LENS IMPLANT Past Anesthesia/Blood Transfusion Reactions: No Reported Reaction Past Psychological History: Anxiety Smoking Status: Former smoker Past Alcohol Use History: None Reported Past Drug Use History: None Reported - Past Family History Mother Family Medical History: Coronary Artery Disease (CAD) Father Family Medical History: Cancer Additional Family Medical History / Comment(s): skin Medications and Allergies Home Medications Medication Instructions Recorded Confirmed Type ALPRAZolam [Xanax] 1 mg PO BID PRN 06/19/15 01/26/25 History Metoprolol Tartrate [Lopressor] 25 mg PO BID 06/19/15 01/26/25 History HYDROcodone/APAP 10-325MG [[place] 1 tab PO Q6H PRN 02/13/22 01/26/25 History 10-325] Rosuvastatin [Crestor] 20 mg PO HS 02/13/22 01/26/25 History lisinopriL [Zestril] 10 mg PO DAILY 02/05/23 01/26/25 History Cyanocobalamin (Vitamin B-12) 1,000 mcg PO DAILY 01/26/25 01/26/25 History [Vitamin B-12] Dapagliflozin Propanediol [Farxiga] 10 mg PO DAILY 01/26/25 01/26/25 History Gabapentin [Neurontin] 300 mg PO BID 01/26/25 01/26/25 History Ibuprofen [Motrin] 800 mg PO TID PRN 01/26/25 01/26/25 History buPROPion XL [Wellbutrin XL] 150 mg PO DAILY 01/26/25 01/26/25 History hydroCHLOROthiazide [Hydrodiuril] 25 mg PO DAILY 01/26/25 01/26/25 History traZODone HCL 150 mg PO HS 01/26/25 01/26/25 History Allergies Allergy/AdvReac Type Severity Reaction Status Date / Time No Known Allergies Allergy Verified 01/26/25 10:32 Physical Exam Vitals: Vital Signs Temp Pulse Resp BP Pulse Ox 01/26/25 10:54 56 L 18 104/62 96 01/26/25 09:33 57 L 16 102/63 96 01/26/25 08:57 97.7 F 57 L 18 136/69 97 Intake and Output 01/25/25 01/26/25 01/26/25 22:59 06:59 14:59 Other: Weight 81.647 kg Results CBC & Chem 7: 01/26/25 09:22 01/26/25 09:22 Labs: Abnormal Lab Results - Last 24 Hours (Table) 01/26/25 01/26/25 01/26/25 Range/Units 09:22 09:22 09:22 WBC 27.62 H (4.50-10.00) 10*3/uL Plt Count 127 L (140-440) 10*3/uL Lymphocytes # (Manual) 23.75 H (1.0-4.8) k/uL APTT 20.9 L (22.0-30.0) sec BUN 28 H (9-20) mg/dL Glucose 117 H (74-99) mg/dL
[2025-01-26] MEDS: HYDROcodone/APAP 10-325MG 1 EACH TAB PO PRN (14:44)
[2025-01-26] MEDS: HEPARIN SODIUM 1,000 UN/ML (10ML VL) IV PRN (15:46)
[2025-01-26] MEDS: METOPROLOL TARTRATE 25 MG TAB PO SCH (18:23)
[2025-01-26] MEDS: GABAPENTIN 300 MG CAP PO SCH (18:25)
[2025-01-26] MEDS: traZODone HCL 100 MG TAB PO SCH (20:49)
[2025-01-27 01:02] LABS: Prothrombin Time 11.1 sec (10.0-12.5)
[2025-01-27 02:23] LABS: HCT 37.2 % (39.6-50.0); HGB 12.4 g/dL (13.0-17.0); MCH 29.1 pg (27.0-32.0); MCHC 33.3 g/dL (32.0-37.0); MCV 87.3 FL (80.0-97.0); NRBC Per 100 WBC 0 X 10*3/uL (0.00-0.01); Platelet Count 100 X 10*3/uL (140-440); RBC 4.26 X 10*6/uL (4.40-5.60); RDW 13.4 % (11.5-14.5); WBC 22.15 X 10*3/uL (4.50-10.00)
[2025-01-27 02:36] LABS: BUN/Creat Ratio 24.55 Ratio (12.00-20.00); Carbon Dioxide 23.2 mmol/L (21.6-31.8); Chloride 106 mmol/L (96-109); Chol/HDL Ratio 2.95 Ratio; Glucose 157 mg/dL (70-110); LDL Cholesterol,Calculated 25.1 mg/dL (0.0-131.0); Potassium 3.4 mmol/L (3.5-5.5); Sodium 141 mmol/L (135-145)
[2025-01-27 04:06] LABS: Basophils # (M) 0 X 10*3/uL (0.00-0.10); Eosinophils # (M) 0.22 X 10*3/uL (0.04-0.35); Lymphocytes # (M) 17.72 X 10*3/uL (0.90-5.00); Monocytes # (M) 1.55 X 10*3/uL (0.20-1.00); Neutrophils # (M) 2.66 X 10*3/uL (1.80-7.70); Neutrophils % (M) 12 %; Smudge Cells Present (Absent)
[2025-01-27 05:49] LABS: Glucose,Whole Blood 133 mg/dL (70-110)
[2025-01-27] MEDS ORDERED: HEPARIN SODIUM,PORCINE (1 ML) 2,500 UNIT in SODIUM CHLORIDE 0.9% 250 ML IRRIGATION PRN (07:00)
[2025-01-27] MEDS ORDERED: HEPARIN SODIUM,PORCINE 10,000 UNIT in SODIUM CHLORIDE 0.9% 1,000 ML IRRIGATION PRN (07:00)
[2025-01-27] MEDS: DAPAGLIFLOZIN PROPANEDIOL 10 MG TABLET PO SCH (07:42)
[2025-01-27] MEDS: ASPIRIN 81 MG PO SCH (07:45)
[2025-01-27] MEDS: buPROPion XL 150 MG TAB.ER.24H PO SCH (08:05)
[2025-01-27] MEDS: ASPIRIN 325 MG TAB PO STA (08:05)
[2025-01-27] MEDS: ATORVASTATIN 80 MG TAB PO STA (08:05)
[2025-01-27 08:08] VITALS: RESP 16; TEMP 97.3
[2025-01-27] MEDS ORDERED: ASPIRIN 325 MG TAB PO SCH (09:00)
--- NOTE | 2025-01-27 09:45 | CA ---
Transthoracic Echo Report Name: Pedro Church Age: 69 Gender: M : 1955 Exam Date: 01/26/2025 13:51 Exam Location: [facility] Ht (in): 67 Wt (lb): 180 Ordering Physician: Elkin Aguero DO Attending/Referring Phys: [employer] Driver Shaista Lange RDCS Procedure CPT: Indications: ACS Cardiac Hx: Technical Quality: Technically difficult study Contrast 1: Definity Total Dose (mL): 3 Contrast 2: Total Dose (mL): MEASUREMENTS (Male / Female) Normal Values 2D ECHO LV Diastolic Diameter PLAX 5.4 cm 4.2 - 5.9 / 3.9 - 5.3 cm LV Systolic Diameter PLAX 3.5 cm IVS Diastolic Thickness 0.9 cm 0.6 - 1.0 / 0.6 - 0.9 cm LVPW Diastolic Thickness 1.1 cm 0.6 - 1.0 / 0.6 - 0.9 cm LV Relative Wall Thickness 0.4 LVOT Diameter 2.0 cm LV Diastolic Volume MOD BP 92.1 cm??? 67 - 155 / 56 - 104 cm??? LV Systolic Volume MOD BP 29.3 cm??? 22 - 58 / 19 - 49 cm??? LV Ejection Fraction MOD BP 68.2 % >= 55 % LV Cardiac Index MOD BP 1708.7 cm???/min???m??? LV Diastolic Volume MOD 4C 94.8 cm??? LV Systolic Volume MOD 4C 30.3 cm??? LV Ejection Fraction MOD 4C 68.1 % LV Cardiac Index MOD 4C 1756.0 cm???/min???m??? LV Diastolic Length 4C 8.3 cm LV Systolic Length 4C 6.4 cm LV Diastolic Volume MOD 2C 84.0 cm??? LV Systolic Volume MOD 2C 26.9 cm??? LV Ejection Fraction MOD 2C 67.9 % LV Cardiac Index MOD 2C 1553.9 cm???/min???m??? LV Diastolic Length 2C 7.7 cm LV Systolic Length 2C 6.0 cm LA Volume 73.0 cm??? 18 - 58 / 22 - 52 cm??? LA Volume Index 36.8 cm???/m??? 16 - 28 cm???/m??? M-MODE LV Diastolic Diameter MM 5.4 cm 4.2 - 5.9 / 3.9 - 5.3 cm LV Systolic Diameter MM 3.4 cm LV Cardiac Index MM Teich 2512.5 cm???/min???m??? IVS Diastolic Thickness MM 1.0 cm 0.6 - 1.0 / 0.6 - 0.9 cm LVPW Diastolic Thickness MM 1.6 cm 0.6 - 1.0 / 0.6 - 0.9 cm LV Relative Wall Thickness MM 0.5 0.24 - 0.42 / 0.22 - 0.42 LV Mass Index MM 150.6 g/m??? 49 - 115 / 43 - 95 g/m??? DOPPLER AV Peak Velocity 344.6 cm/s AV Peak Gradient 47.5 mmHg AV Mean Velocity 239.9 cm/s AV Mean Gradient 26.3 mmHg AV Velocity Time Integral 80.1 cm LVOT Peak Velocity 119.2 cm/s LVOT Peak Gradient 5.7 mmHg LVOT Velocity Time Integral 28.3 cm LVOT Stroke Volume 85.7 cm??? LVOT Stroke Volume Index 44.3 ml/m??? LVOT Cardiac Index 2331.4 cm???/min???m??? AV Area Cont Eq vti 1.1 cm??? AV Area Cont Eq pk 1.0 cm??? MV Peak Velocity 98.3 cm/s MV Peak Gradient 3.9 mmHg MV Mean Velocity 53.5 cm/s MV Mean Gradient 1.4 mmHg MV Velocity Time Integral 35.8 cm MV Area PHT 2.3 cm??? Mitral E Point Velocity 71.3 cm/s Mitral A Point Velocity 98.9 cm/s Mitral E to A Ratio 0.7 MV Deceleration Time 323.3 ms TR Peak Velocity 242.4 cm/s TR Peak Gradient 23.5 mmHg Right Atrial Pressure 5.0 mmHg Pulmonary Artery Systolic Pressu 28.5 mmHg Right Ventricular Systolic Press 28.5 mmHg PV Peak Velocity 111.8 cm/s PV Peak Gradient 5.0 mmHg FINDINGS Left Ventricle Left ventricular ejection fraction is estimated at 60-65 %. Severely increased left ventricular mass. Moderately increased posterior wall thickness. Moderately increased left ventricular relative wall thickness. Left ventricular cavity size normal. No obvious regional wall motion abnormalities. Right Ventricle Mild right ventricular dilatation. Normal right ventricular global systolic function. Right ventricular systolic pressure within normal limits. Right Atrium Normal right atrial size. Left Atrium Moderately increased left atrial volume. Mildly increased left atrial area. Mitral Valve Structurally normal mitral valve. No mitral stenosis, regurgitation or prolapse. Aortic Valve Bioprosthetic aortic valve without stenosis with a peak velocity of 3.5 m/s, peak gradient 47 mmHg, mean gradient 26 mmHg, and estimated aortic valve area of 1.1 cm???. No paravalvular aortic regurgitation. No central aortic regurgitation. Tricuspid Valve Structurally normal tricuspid valve. No tricuspid stenosis. Mild tricuspid regurgitation. Pulmonic Valve Structurally normal pulmonic valve. No pulmonic stenosis. Mild pulmonic regurgitation. Pericardium No pericardial effusion. Fat pad. Aorta Aortic annulus normal. Mildly dilated proximal ascending aorta (tube). CONCLUSIONS Left ventricular ejection fraction 60 to 65% Moderately increased left ventricular wall thickness Bioprosthetic aortic valve with moderate aortic stenosis No paravalvular leak Mild tricuspid regurgitation No pericardial effusion Previewed by: Dr. Jayce Machado DO (Electronically Signed) Final Date: 27 Jan 2025 09:45
[2025-01-27] MEDS: lisinopriL 10 MG TAB PO SCH (11:06)
[2025-01-27] MEDS: hydroCHLOROthiazide 25 MG TAB PO SCH (11:06)
--- NOTE | 2025-01-27 11:16 | P.PN ---
Subjective Progress Note Date: 01/27/25 69 year old M with PMH of CAD post CABG x 4, AV replacement, HTN, DM presents to the ED for chest pain that started around 11:30 AM yesterday while he was shoveling dirt. Pain is left sided, pressure like in nature. Pain is 9/10 severity. Pain associated with nausea, diaphoresis and some shortness of breath. He was evaluated in the ED. BP 136/69, HR 57, T 97.7F, RR 18, 97% on RA. CBC, Coag panel, CMP significant for WBC 27.62, Plt 127, APTT 20.9, BUN 28, glu 117. Mag 2.1. Trop < 0.012. EKG sinus bradycardia with ST depression in the inferior leads. CXR post CABG changes with AV replacement, mild interstitial density. Patient is started on heparin infusion and admitted for Cardiology evaluation. 01/27 Patient was seen and examined. Reports LUE numbness. Cardiac cath delayed yesterday due to scheduling issues. Maintained on heparin drip at 15 units/kg/hr. CBC and BMP significant for WBC 22.15, RBC 4.26, Hg 12.4, Hct 37.2, K 3.4, BUN/Cr 24.55, glu 157, Ca 8. Lipid panel T. Chol 84, LDL 25.1, TG 152. Echo EF 60-65% with bioprosthetic AV and mod . Plans for cardiac cath today. General: no distress, appears at stated age Derm: warm, dry Head: atraumatic, normocephalic, symmetric Mouth: no lip lesion, mucus membranes moist Cardiovascular: S1 S2 felix. Systolic murmur. Lungs: Clear to auscultation bilaterally, no accessory muscle use Ext: no gross muscle atrophy, no edema, no contractures Neuro: No focal neurologic deficits. Psych: Alert and oriented. Based on my assessment of this patient, this patient meets a high complexity level of care. NSTEMI: Heparin infusion. Monitor APTT. ASA 81 mg PO QD. Lipitor 40 mg PO QHS. Metoprolol 25 mg PO BID. Nitrostat PRN. Nitro-Bid ointment. Telemetry monitoring. Echo as above. Plans for cardiac cath today. Cardiology on board. Sinus bradycardia likely due to inferior wall NSTEMI. HypoK: KCl 20 meq PO x 1. CLL: Explains the leukocytosis. Outpatient Heme-Onc follow up. HTN: HCTZ 25 mg PO QD. Lisinopril 10 mg PO QD. Metoprolol as above. DM: Farxiga 10 mg PO QD. Anxiety: Xanax 1 mg PO BID PRN. Wellbutrin XL 150 mg PO QD. Trazadone 150 mg PO QHS. CODE STATUS: FULL CODE DVT Prophylaxis: Heparin drip. GI Prophylaxis: Designated medical POA if patient is not able to make medical decisions for themselves: I have reviewed the following oim consultant notes: Cardio note. I have reviewed the results of the following tests: CBC, BMP, Lipid panel, APTT, Echo. I have ordered the following tests: Daily APTT while on heparin. I have discussed the care of this patient with the following independent historian: I have independently interpreted the following test below: I have discussed the management of this patient with the following physician: Objective - Vital Signs Vital signs: Vital Signs Temp 97.3 F L 01/27/25 06:45 Pulse 56 L 01/27/25 06:45 Resp 16 01/27/25 06:45 BP 105/62 01/27/25 06:45 Pulse Ox 97 01/27/25 06:45 FiO2 Intake & Output 01/26/25 01/27/25 01/27/25 18:59 06:59 18:59 Intake Total 61.727 342.837 Balance 61.727 342.837 Weight 81.647 kg Intake: Intake, IV Titration 61.727 120.837 Amount Heparin Sod,Pork in 0.45% 61.727 120.837 NaCl 25,000 unit In 0.45 % NaCl 1 250ml.bag @ 12 UNITS/KG/HR 9.798 mls/hr IV .Q24H ORALIA Rx#: [id number] Oral 222 Other: Voiding Method Toilet Toilet # Voids 2 - Labs CBC & Chem 7: 01/27/25 00:15 01/27/25 00:15 Labs: Abnormal Lab Results - Last 24 Hours (Table) 01/26/25 01/26/25 01/26/25 Range/Units 09:22 15:09 23:59 WBC (4.50-10.00) X 10*3/uL RBC (4.40-5.60) X 10*6/uL Hgb (13.0-17.0) g/dL Hct (39.6-50.0) % Plt Count (140-440) X 10*3/uL Lymphocytes # (Manual) 23.75 H (1.0-4.8) k/uL Monocytes # (Manual) (0.20-1.00) X 10*3/uL Smudge Cells (Absent) APTT 30.6 H 44.6 H (22.0-30.0) sec Potassium (3.5-5.5) mmol/L BUN/Creatinine Ratio (12.00-20.00) Ratio Glucose (70-110) mg/dL POC Glucose (mg/dL) (70-110) mg/dL Calcium (8.7-10.3) mg/dL Triglycerides (0.00-149.00) mg/dL HDL Cholesterol (40.00-60.00) mg/dL 01/27/25 01/27/25 01/27/25 Range/Units 00:15 00:15 05:44 WBC 22.15 H (4.50-10.00) X 10*3/uL RBC 4.26 L (4.40-5.60) X 10*6/uL Hgb 12.4 L (13.0-17.0) g/dL Hct 37.2 L (39.6-50.0) % Plt Count 100 L (140-440) X 10*3/uL Lymphocytes # (Manual) 17.72 H (1.0-4.8) k/uL Monocytes # (Manual) 1.55 H (0.20-1.00) X 10*3/uL Smudge Cells Present A (Absent) APTT (22.0-30.0) sec Potassium 3.4 L (3.5-5.5) mmol/L BUN/Creatinine Ratio 24.55 H (12.00-20.00) Ratio Glucose 157 H (70-110) mg/dL POC Glucose (mg/dL) 133 H (70-110) mg/dL Calcium 8.0 L (8.7-10.3) mg/dL Triglycerides 152.00 H (0.00-149.00) mg/dL HDL Cholesterol 28.50 L (40.00-60.00) mg/dL 01/27/25 Range/Units 06:28 WBC (4.50-10.00) X 10*3/uL RBC (4.40-5.60) X 10*6/uL Hgb (13.0-17.0) g/dL Hct (39.6-50.0) % Plt Count (140-440) X 10*3/uL Lymphocytes # (Manual) (1.0-4.8) k/uL Monocytes # (Manual) (0.20-1.00) X 10*3/uL Smudge Cells (Absent) APTT 42.5 H (22.0-30.0) sec Potassium (3.5-5.5) mmol/L BUN/Creatinine Ratio (12.00-20.00) Ratio Glucose (70-110) mg/dL POC Glucose (mg/dL) (70-110) mg/dL Calcium (8.7-10.3) mg/dL Triglycerides (0.00-149.00) mg/dL HDL Cholesterol (40.00-60.00) mg/dL
[2025-01-27] MEDS: fentaNYL (PF) 50 MCG/ML 2 ML AMP IVP ONE (11:24)
[2025-01-27] MEDS: LIDOCAINE 1% INJ 10MG/ML (20 ML MDV) SQ ONE (11:27)
[2025-01-27] MEDS: MIDAZOLAM 2 MG/2 ML VIAL IVP ONE (11:30)
[2025-01-27] MEDS: IOPAMIDOL-370 100ML BTL INJ ONE (11:45)
[2025-01-27] MEDS: IV FLUID CONTINUATION 700 ML IV ONE (11:47)
[2025-01-27] MEDS ORDERED: RX INFO: IV CONTRAST WAS GIVEN 1 EACH MISC MISCELLANE PRN (12:01)
--- NOTE | 2025-01-27 12:01 | P.PN ---
Subjective Progress Note Date: 01/27/25 HISTORY OF PRESENT ILLNESS: This is a 69-year-old male with a past medical history significant for leukemia, coronary artery disease with previous CABG, aortic valve replacement, hypertension, and hyperlipidemia. Patient follows in the office with Dr. Zuleta. We have been asked to see the patient in consultation for chest pain. Patient examined at the bedside in the emergency room. Patient initially presented to the hospital yesterday with a chief complaint of chest discomfort. He states the pain started when he was outside shoveling dirt. He reports the pain radiated into his back. He presented to the ER yesterday for further evaluation. He did receive nitro yesterday with some relief of the pain. He ended up leaving the ER AGAINST MEDICAL ADVICE. He returned back to the hospital this morning with continued chest pain. He did receive nitro again today with some improvement of his pain. At the time of examination he is rating his pain 8/10. DIAGNOSTICS: - EKG reveals sinus mechanism with ST depression in lead I, aVL, and V6 - Chest xray post CABG changes and previous endovascular aortic valve replacement. Interstitial density which could reflect mild pulmonary vascular congestion, bronchitis, or asthma. - Laboratory data: WBC 27.62. Hemoglobin 14.6. Platelet count 127. Sodium 140. Potassium 3.9. BUN 28. Creatinine 0.96. Magnesium 2.1. Troponin negative x 1 - Current home cardiac medications include Crestor 20 mg at night, lisinopril 10 mg daily, hydrochlorothiazide 25 mg daily, metoprolol tartrate 25 mg twice a day, Farxiga 10 mg daily. - Most recent echocardiogram obtained in December 2023 revealing normal EF, mild MR, prosthetic aortic valve, mild TR - Cardiac catheterization history: January 2022 revealing patent RAYMUNDO to LAD, patent VG to D1, patent VG to RCA, severe aortic stenosis. Totally occluded saphenous vein graft to the OM 01/27 Patient seen and examined. Due to scheduling conflicts, patient's cardiac catheterization scheduled for yesterday was delayed until today. Blood pressure 105/62, heart rate 56, pulse ox 97% on room air. Repeat blood work reveals creatinine 1.1, WBC 22, hemoglobin 12.4. Triglycerides 152, cholesterol 84, LDL 25. Denies any issues overnight. He denies chest pain. He states he has a little shortness of breath is about the same as when he came into the hospital. He has been up to the bathroom and back to bed only. He remains on heparin drip. Echocardiogram reveals EF 60 to 65%. Moderately increased left v entricular wall thickness. Bioprosthetic aortic valve with moderate aortic stenosis. No paravalvular leak. Mild tricuspid regurgitation. No pericardial effusion. PHYSICAL EXAM: VITAL SIGNS: Reviewed. GENERAL: Well-developed in no acute distress. HEENT: Head is normocephalic. Pupils are equal, round. Sclerae anicteric. Mucous membranes of the mouth are moist. Neck supple. No JVD or thyromegaly LUNGS: Respirations even and unlabored. Lungs essentially clear to auscultation bilaterally. HEART: Regular rate and rhythm. S1 and S2 heard. Systolic murmur noted ABDOMEN: Soft. Nondistended. Nontender. EXTREMITIES: Normal range of motion. No clubbing or cyanosis. Peripheral pulses intact. No lower extremity edema NEUROLOGIC: Awake and alert. Oriented x 3. ASSESSMENT: Unstable angina Coronary artery disease with previous four-vessel CABG in 2013 History of aortic stenosis status post TAVR, March 2022 Hypertension Hyperlipidemia CLL PLAN: Continue IV heparin Continue home cardiac medications Continue Nitropaste Patient to undergo cardiac catheterization today with Dr. Zuleta Further recommendations pending patient course Nurse practitioner note has been reviewed by physician. Signing provider agrees with the documented findings, assessment, and plan of care documented by PRINCIPAL SOFTWARE ENGINEER as a scribe. Objective - Vital Signs Vital signs: Vital Signs Temp 97.3 F L 01/27/25 06:45 Pulse 56 L 01/27/25 06:45 Resp 16 01/27/25 06:45 BP 105/62 01/27/25 06:45 Pulse Ox 97 01/27/25 06:45 FiO2 Intake & Output 01/26/25 01/27/25 01/27/25 18:59 06:59 18:59 Intake Total 61.727 342.837 Balance 61.727 342.837 Weight 81.647 kg Intake: Intake, IV Titration 61.727 120.837 Amount Heparin Sod,Pork in 0.45% 61.727 120.837 NaCl 25,000 unit In 0.45 % NaCl 1 250ml.bag @ 12 UNITS/KG/HR 9.798 mls/hr IV .Q24H [facility]AL[facility] Rx#: [id number] Oral 222 Other: Voiding Method Toilet # Voids 2 - Labs CBC & Chem 7: 01/27/25 00:15 01/27/25 00:15 Labs: Abnormal Lab Results - Last 24 Hours (Table) 01/26/25 01/26/25 01/26/25 Range/Units 09:22 09:22 09:22 WBC 27.62 H (4.50-10.00) 10*3/uL RBC (4.40-5.60) X 10*6/uL Hgb (13.0-17.0) g/dL Hct (39.6-50.0) % Plt Count 127 L (140-440) 10*3/uL Lymphocytes # (Manual) 23.75 H (1.0-4.8) k/uL Monocytes # (Manual) (0.20-1.00) X 10*3/uL Smudge Cells (Absent) APTT 20.9 L (22.0-30.0) sec Potassium (3.5-5.5) mmol/L BUN 28 H (9-20) mg/dL BUN/Creatinine Ratio (12.00-20.00) Ratio Glucose 117 H (74-99) mg/dL POC Glucose (mg/dL) (70-110) mg/dL Calcium (8.7-10.3) mg/dL Triglycerides (0.00-149.00) mg/dL HDL Cholesterol (40.00-60.00) mg/dL 01/26/25 01/26/25 01/27/25 Range/Units 15:09 23:59 00:15 WBC 22.15 H (4.50-10.00) 10*3/uL RBC 4.26 L (4.40-5.60) X 10*6/uL Hgb 12.4 L (13.0-17.0) g/dL Hct 37.2 L (39.6-50.0) % Plt Count 100 L (140-440) 10*3/uL Lymphocytes # (Manual) 17.72 H (1.0-4.8) k/uL Monocytes # (Manual) 1.55 H (0.20-1.00) X 10*3/uL Smudge Cells Present A (Absent) APTT 30.6 H 44.6 H (22.0-30.0) sec Potassium (3.5-5.5) mmol/L BUN (9-20) mg/dL BUN/Creatinine Ratio (12.00-20.00) Ratio Glucose (74-99) mg/dL POC Glucose (mg/dL) (70-110) mg/dL Calcium (8.7-10.3) mg/dL Triglycerides (0.00-149.00) mg/dL HDL Cholesterol (40.00-60.00) mg/dL 01/27/25 01/27/25 01/27/25 Range/Units 00:15 05:44 06:28 WBC (4.50-10.00) 10*3/uL RBC (4.40-5.60) X 10*6/uL Hgb (13.0-17.0) g/dL Hct (39.6-50.0) % Plt Count (140-440) 10*3/uL Lymphocytes # (Manual) (1.0-4.8) k/uL Monocytes # (Manual) (0.20-1.00) X 10*3/uL Smudge Cells (Absent) APTT 42.5 H (22.0-30.0) sec Potassium 3.4 L (3.5-5.5) mmol/L BUN (9-20) mg/dL BUN/Creatinine Ratio 24.55 H (12.00-20.00) Ratio Glucose 157 H (74-99) mg/dL POC Glucose (mg/dL) 133 H (70-110) mg/dL Calcium 8.0 L (8.7-10.3) mg/dL Triglycerides 152.00 H (0.00-149.00) mg/dL HDL Cholesterol 28.50 L (40.00-60.00) mg/dL
--- NOTE | 2025-01-27 12:08 | P.CARDCATH ---
Date of Procedure: 01/27/25 Description of Procedure: Cardiac Catheterization: The patient is a 69-year-old male with a known history of CAD, status post CABG who presented with persistent symptoms of chest discomfort and no enzymatic changes with nonspecific ST-T wave changes. He has a known history of TAVR. Recommendations were made regarding cardiac catheterization, the risks and the complications were discussed with the patient who is in full understanding and agreement. Procedure Description: Patient was brought to optical laboratory mechanic in fasting semi-sedated state after receiving Fentanyl and Benadryl achieiving moderate conscious sedated state. Using Xylocaine Anesthesia and modified Seldinger technique, a 6-Nepali sheath was in troduced in the right femoral artery using micropuncture technique. Subsequently, selective coronary angiography was performed using a 6-Nepali 4 bend Patsy catheter. Multiple views of the coronary artery including hemiaxial views were obtained. The right Patsy catheter was used to obtain images of the SVG to the diagonal, RCA and RAYMUNDO to the LAD. Following that, catheter and sheath were removed. Hemostasis was obtained with deployment of Angio-Seal. There was no immediate complication. Patient was returned to room in stable condition. Findings: Left main: This is a large size vessel, bifurcating into LAD and left circumflex, left main has no obstructive disease LAD: This is a large size vessel has intimal disease proximally in the midsegment is totally occluded with no significant antegrade flow with retrograde flow through the RAYMUNDO. It gives rise to a large diagonal branch in the proximal segment that has competitive flow. Left circumflex: This is a nondominant vessel giving rise to 4 obtuse marginal branch. The fourth obtuse marginal branch is totally occluded with slow retrograde filling. RCA: This is a dominant vessel, bifurcating distally into PDA and PLV. The mid RCA has intimal disease of 50 to 60% distally has a 90% stenosis and a long segment with no significant flow into the PDA SVG to the diagonal branch: The proximal and distal anastomotic site are patent the flow into the diagonal branch is brisk, there is no obstructive disease SVG to the RCA: The proximal and distal anastomotic site are patent the flow into the PDA is brisk, there is no evidence of significant obstructive disease RAYMUNDO to the LAD: The distal anastomotic site is patent, the flow into the LAD is brisk Left Ventriculogram: Not performed Conclusion: 1. Severe triple-vessel disease 2. Patent RAYMUNDO to the LAD 3. Patent SVG to the PDA 4. Patent SVG to the diagonal branch Recommendations: The findings are similar to his images in 2021, the SVG to the OM is chronically occluded. I would recommend to continue medical therapy. The findings and the recommendations were discussed with the patient and the family and they were in full understanding and agreement. Duration of sedation is 24 minutes.
[2025-01-27] MEDS: POTASSIUM CHLORIDE ER 20 MEQ TAB.ER PO STA (12:11)
[2025-01-27] MEDS: SODIUM CHLORIDE 0.9% 1,000 ML IV SCH (12:59)
[2025-01-27 13:20] VITALS: BP 123/73; PULSE 68
--- NOTE | 2025-01-27 14:20 | P.DS ---
Providers Date of admission: 01/26/25 10:03 Expected date of discharge: 01/27/25 Attending physician: Krishna Floyd Consults: 01/26/25 10:03 Consult Physician Urgent Consulting Provider: Ramana Thomas Consult Reason/Comments: acs Do you want consulting provider notified?: Already Contacted Primary care physician: Patrick Gutierrez MD Hospital Course: 69 year old M with PMH of CAD post CABG x 4, AV replacement, HTN, DM presents to the ED for chest pain that started around 11:30 AM yesterday while he was shoveling dirt. Pain is left sided, pressure like in nature. Pain is 9/10 severity. Pain associated with nausea, diaphoresis and some shortness of breath. He was evaluated in the ED. BP 136/69, HR 57, T 97.7F, RR 18, 97% on RA. CBC, Coag panel, CMP significant for WBC 27.62, Plt 127, APTT 20.9, BUN 28, glu 117. Mag 2.1. Trop < 0.012. EKG sinus bradycardia with ST depression in the inferior leads. CXR post CABG changes with AV replacement, mild interstitial density. Patient is started on heparin infusion and admitted for Cardiology evaluation. 01/27 Patient was seen and examined. Reports LUE numbness. Cardiac cath delayed yesterday due to scheduling issues. Maintained on heparin drip at 15 units/kg/hr. CBC and BMP significant for WBC 22.15, RBC 4.26, Hg 12.4, Hct 37.2, K 3.4, BUN/Cr 24.55, glu 157, Ca 8. Lipid panel T. Chol 84, LDL 25.1, TG 152. Echo EF 60-65% with bioprosthetic AV and mod . Plans for cardiac cath today. Patient underwent cardiac cath showing chronically occluded SVJ to OM. Cardiology recommending medical management. Discussed with Monica JULIO Cardiology cleared for discharge. Discharge Plan: Script for Nitro SL PRN sent to pharmacy. Continue home medications. Follow up with PCP within 1-2 days and Cardiology within 1 week of discharge. General: no distress, appears at stated age Derm: warm, dry Head: atraumatic, normocephalic, symmetric Mouth: no lip lesion, mucus membranes moist Cardiovascular: S1 S2 felix. Systolic murmur. Lungs: Clear to auscultation bilaterally, no accessory muscle use Ext: no gross muscle atrophy, no edema, no contractures Neuro: No focal neurologic deficits. Psych: Alert and oriented. Discharge Diagnosis: NSTEMI Sinus bradycardia HypoK CLL HTN DM Anxiety This complex discharge took 35 minutes to complete. Patient Condition at Discharge: Stable Plan - Discharge Summary Discharge Rx Participant: No New Discharge Prescriptions: New Aspirin 81 mg PO DAILY tab Nitroglycerin Sl Tabs [Nitrostat] 0.4 mg SUBLINGUAL Q5M PRN #30 tab PRN Reason: Chest Pain Continue ALPRAZolam [Xanax] 1 mg PO BID PRN PRN Reason: Anxiety Metoprolol Tartrate [Lopressor] 25 mg PO BID HYDROcodone/APAP 10-325MG [[place] 10-325] 1 tab PO Q6H PRN PRN Reason: Pain hydroCHLOROthiazide [Hydrodiuril] 25 mg PO DAILY Ibuprofen [Motrin] 800 mg PO TID PRN PRN Reason: Pain buPROPion XL [Wellbutrin XL] 150 mg PO DAILY Gabapentin [Neurontin] 300 mg PO BID Dapagliflozin Propanediol [Farxiga] 10 mg PO DAILY Cyanocobalamin (Vitamin B-12) [Vitamin B-12] 1,000 mcg PO DAILY Rosuvastatin [Crestor] 20 mg PO HS lisinopriL [Zestril] 10 mg PO DAILY traZODone HCL 150 mg PO HS Discharge Medication List ALPRAZolam [Xanax] 1 mg PO BID PRN 06/19/15 [History] Metoprolol Tartrate [Lopressor] 25 mg PO BID 06/19/15 [History] HYDROcodone/APAP 10-325MG [[place] 10-325] 1 tab PO Q6H PRN 02/13/22 [History] Rosuvastatin [Crestor] 20 mg PO HS 02/13/22 [History] lisinopriL [Zestril] 10 mg PO DAILY 02/05/23 [History] Cyanocobalamin (Vitamin B-12) [Vitamin B-12] 1,000 mcg PO DAILY 01/26/25 [History] Dapagliflozin Propanediol [Farxiga] 10 mg PO DAILY 01/26/25 [History] Gabapentin [Neurontin] 300 mg PO BID 01/26/25 [History] Ibuprofen [Motrin] 800 mg PO TID PRN 01/26/25 [History] buPROPion XL [Wellbutrin XL] 150 mg PO DAILY 01/26/25 [History] hydroCHLOROthiazide [Hydrodiuril] 25 mg PO DAILY 01/26/25 [History] traZODone HCL 150 mg PO HS 01/26/25 [History] Aspirin 81 mg PO DAILY tab 01/27/25 [Rx] Nitroglycerin Sl Tabs [Nitrostat] 0.4 mg SUBLINGUAL Q5M PRN #30 tab 01/27/25 [Rx] Follow up Appointment(s)/Referral(s): Keron Zuleta MD [STAFF PHYSICIAN] - 1 Week Patrick Gutierrez MD [Primary Care Provider] - 1-2 days Discharge Disposition: HOME SELF-CARE
[2025-01-27] MEDS ORDERED: ATORVASTATIN 40 MG TAB PO SCH (21:00)
== END 2025-01-27 17:05 | disposition home or self-care (01) | DRG 287 ==
LOC: EC 08:54 → 6NMEDSUR 10:03
PROVIDERS: ADMIT Student in an Organized Health Care Education/Training Program; ATTEND Student in an Organized Health Care Education/Training Program
PROC: B2111ZZ Fluoroscopy of Multiple Coronary Arteries using Low Osmolar Contrast (ICD-10-PCS; 2025-01-27)
PROC: B2131ZZ Fluoroscopy of Multiple Coronary Artery Bypass Grafts using Low Osmolar Contrast (ICD-10-PCS; 2025-01-27)
PROC: B2181ZZ Fluoroscopy of Left Internal Mammary Bypass Graft using Low Osmolar Contrast (ICD-10-PCS; 2025-01-27)
PROC: 4A023N7 Measurement of Cardiac Sampling and Pressure, Left Heart, Percutaneous Approach (ICD-10-PCS; principal; 2025-01-27 10:45)
DX: I25.110 Atherosclerotic heart disease of native coronary artery with unstable angina pectoris (principal); E11.9 Type 2 diabetes mellitus without complications; I10 Essential (primary) hypertension; Z95.2 Presence of prosthetic heart valve; E78.5 Hyperlipidemia, unspecified; F41.9 Anxiety disorder, unspecified; Z85.6 Personal history of leukemia; Z87.891 Personal history of nicotine dependence; Z95.1 Presence of aortocoronary bypass graft; G47.30 Sleep apnea, unspecified; I07.1 Rheumatic tricuspid insufficiency; R00.1 Bradycardia, unspecified; M19.90 Unspecified osteoarthritis, unspecified site; E87.6 Hypokalemia; Z79.82 Long term (current) use of aspirin; Z79.84 Long term (current) use of oral hypoglycemic drugs; Z79.899 Other long term (current) drug therapy; Z82.49 Family history of ischemic heart disease and other diseases of the circulatory system
CPT/HCPCS: 36415; 71045; 80048; 80053; 80061; 83735; 84484; 85025; 85610; 85730; 93005; 93306; 93455; 96365; 96366; 96375; 99291

== ENCOUNTER → 2025-04-08 | Outpatient (CLI) | payer MEDICARE | END | disposition home or self-care (01) | LOC: LABWHC1 07:21 | PROVIDERS: ATTEND Family Medicine | DX: E11.9 Type 2 diabetes mellitus without complications (principal) | CPT/HCPCS: 36415; 83036 ==